=== PATIENT | male | born 1950 | race Caucasian/White ===

== ENCOUNTER 2020-07-05 11:45 | Outpatient (CLI) | payer OTHER, SELFPAY ==
--- NOTE | 2020-07-05 11:50 | MM_ITS ---
WS: [id number] DIAGNOSTIC BILATERAL DIGITAL MAMMOGRAM WITH CAD LEFT breast ultrasound, limited HISTORY: Male with asymmetric LEFT breast enlargement. Palpable mass centrally. COMPARISON: None available. TECHNIQUE: Bilateral craniocaudad, mediolateral oblique, and mediolateral views are submitted. Spot c ompression LEFT MLO. Computer aided detection utilized. Breast composition: The breasts are almost entirely fatty. There is a large encapsulated fatty mass i n the central to upper outer quadrant of the LEFT breast. This mass is probably an encapsulated lipo ma or fibroadenolipoma. Mass measures at least 8.2 x 7.6 cm. There are benign coarse calcifications w ithin the mass. No adenopathy. LEFT breast ultrasound, limited. Enlarged breast tissue corresponds to an encapsulated mass which is similar to the adjacent breast ti ssue. This is probably a lipoma or fibroadenolipoma which is benign. Mass measures at least 11 cm x 2 .4 cm. MM/[place] [id number] IMPRESSION: BI-RADS: 2-Benign FOLLOW UP: See Report There is a large fat-containing mass in the LEFT breast which is benign. This i s probably a lipoma or fibroadenolipoma. No suspicion for malignancy by mammogr aphy or ultrasound. Surgically this can be removed if clinically thought necess sylvain.
--- NOTE | 2020-07-05 12:45 | US_ITS ---
WS: [id number] DIAGNOSTIC BILATERAL DIGITAL MAMMOGRAM WITH CAD LEFT breast ultrasound, limited HISTORY: Male with asymmetric LEFT breast enlargement. Palpable mass centrally. COMPARISON: None available. TECHNIQUE: Bilateral craniocaudad, mediolateral oblique, and mediolateral views are submitted. Spot c ompression LEFT MLO. Computer aided detection utilized. Breast composition: The breasts are almost entirely fatty. There is a large encapsulated fatty mass i n the central to upper outer quadrant of the LEFT breast. This mass is probably an encapsulated lipo ma or fibroadenolipoma. Mass measures at least 8.2 x 7.6 cm. There are benign coarse calcifications w ithin the mass. No adenopathy. LEFT breast ultrasound, limited. Enlarged breast tissue corresponds to an encapsulated mass which is similar to the adjacent breast ti ssue. This is probably a lipoma or fibroadenolipoma which is benign. Mass measures at least 11 cm x 2 .4 cm. US/US breast LT limited* [id number] IMPRESSION: BI-RADS: 2-Benign FOLLOW UP: See Report There is a large fat-containing mass in the LEFT breast which is benign. This i s probably a lipoma or fibroadenolipoma. No suspicion for malignancy by mammogr aphy or ultrasound. Surgically this can be removed if clinically thought necess
== END 2020-07-05 11:46 | disposition home or self-care (01) ==
LOC: RADSHAW 11:47
PROVIDERS: PCP Emergency Medicine Emergency Medical Services; Visit Provider Dermatology
DX: N64.89 Other specified disorders of breast (principal); N63.20 Unspecified lump in the left breast, unspecified quadrant
CPT/HCPCS: 76642; 77066

== ENCOUNTER 2021-02-07 14:12 | Emergency (ER) | payer OTHER, MEDICARE, SELFPAY ==
[2021-02-07 14:29] VITALS: BP 145/87; PULSE 70; RESP 16; TEMP 36.4; O2SAT 95; BMI 31.3
--- NOTE | 2021-02-07 14:38 | XR_ITS ---
WS: [id number] Portable AP upright chest, 02/07/2021 Clinical Data: dyspnea/cough Comparison: None. Findings: No nodules, masses or effusions are seen. The heart is normal. The pulmonary vascularity is not increased. No pneumonia or pneumothorax is seen. The aortic arch and descending aorta show calci fication and tortuosity. XR/XR chest 1V portable [id number] Impression: Atherosclerosis.
--- NOTE | 2021-02-07 15:06 | ED_ITS ---
HPI - General Adult General: Chief complaint: General Medical Stated complaint: Coughing Blood Time Seen by Provider: 02/07/21 14:38 History of Present Illness: HPI narrative: 70-year-old male presents to the emergency room with complaint of minor hemoptysis for the last few days. He has not had any fever sweats chills shortness of breath. He has had a little bit of sinus congestion which initially had attributed to hemoptysis 2. He is not on any anticoagulants and has no history of any pulmonary emboli. He does not have any shortness of breath or chest pain. No known history of coronary artery disease. Patient is a former smoker quit several years ago. Onset (ago): day(s) Location: chest Severity: mild Relieving factors: none Exacerbating factors: none Associated symptoms: Reports cough; Deny chest pain, confusion, diaphoresis, decreased appetite, dyspnea, fevers/chills, headache(s), malaise, nausea, rash, palpitations, seizures, short of breath, syncope, vomiting or weakness Treatments prior to arrival: none Review of Systems Const: Denies: malaise or diaphoresis ENMT: Denies: throat pain, ear or mastoid pain, nasal discharge or nasal congestion Card: Denies: chest pain, palpitations or syncope Resp: Denies: dyspnea GI: Denies: nausea or vomiting : Denies: flank pain, dysuria, urinary frequency or urinary urgency Skin/Breast: Denies: rash Neuro: Denies: headache(s) or confusion PFS ED PFSH: Medical History History of nonmelanoma skin cancer Hypercholesteremia Family History Other CAD (coronary artery disease) Cancer Denies family history of Diabetes Stroke Social History Smoking and tobacco status: former smoker Alcohol intake: former History of recent travel: No Physical Exam Const: COMMON NORMALS: no acute distress GENERAL APPEARANCE: cooperative and comfortable ORIENTATION/CONSCIOUSNESS: Yes awake, Yes oriented to person, Yes oriented to place and Yes oriented to time HENMT: COMMON NORMALS: normocephalic, atraumatic and hearing grossly normal bilaterally HEAD & SCALP: normocephalic and atraumatic Neck/C-Spine: COMMON NORMALS: full ROM, no lymphadenopathy, supple and no JVD Lymph: LYMPHATIC: no lymphadenopathy noted and no lymphedema noted Resp: COMMON NORMALS: normal respiratory effort, No retractions, No use of accessory muscles and clear to auscultation bilaterally AUSCULTATION: clear to auscultation bilaterally Cardio: COMMON NORMALS: no JVD, regular rate, regular rhythm and No murmurs pr esent (Cardio) RATE: regular rate RHYTHM: regular rhythm GI: COMMON NORMALS: Soft to palpation and No hepatosplenomegaly present AUSCULTATION: Yes normoactive bowel sounds PALPATION: Yes Soft to palpation, No Tenderness to palpation present (GI), No Guarding due to palpation present (GI) and Yes No hepatosplenomegaly present Extremity: COMMON NORMALS: normal to inspection, capillary refill normal, no clubbing, cyanosis or edema, no calf tenderness and no pedal edema Neuro: SENSORIUM/ORIENTATION: Yes oriented to person, Yes oriented to place and Yes oriented to time Skin: COMMON NORMALS: no rashes or lesions noted GENERAL SKIN EXAM: no rashes or lesions noted Course Vital Signs: Vital signs: Vital Signs Temperature 97.6 F 02/07/21 14:29 Pulse Rate 67 02/07/21 15:11 Respiratory Rate 14 02/07/21 15:11 Blood Pressure 125/85 02/07/21 15:11 Pulse Oximetry 97 02/07/21 15:11 MDM - General Adult MDM Narrative: Medical decision making narrative: Labs and imaging reviewed we will discharge patient home start him on doxycycline we will set him up for an outpatient CT of the chest with IV contrast and follow-up with pulmonology. Lab Data: Labs: Lab Results 02/07/21 02/07/21 Range/Units 15:07 15:07 WBC 7.3 (4.0-10.0) 10^3/ uL RBC 5.17 (4.1-5.3) 10^6/u L Hgb 16.2 (11.7-16.6) g/dL Hct 48.3 (42.0-52.0) % MCV 93.4 (80-94) fl MCH 31.3 (28.0-34.0) pg MCHC 33.5 (30.0-36.0) g/dL RDW 12.2 (12.1-15.1) % Plt Count 252 (130-400) 10^3/c mm MPV 11.0 H (7.4-10.4) fL Neut % (Auto) 57.2 % Lymph % (Auto) 32.3 % Thayer % (Auto) 7.8 % Eos % (Auto) 2.1 % Baso % (Auto) 0.3 % Neut # (Auto) 4.19 (1.8-7.7) 10^3/u L Lymph # (Auto) 2.4 (0.8-4.8) 10^3/u L Thayer # (Auto) 0.6 (0.2-0.9) 10^3/u L Eos # (Auto) 0.2 (0.0-0.8) 10^3/u L Baso # (Auto) 0.0 (0.0-0.1) 10^3/u L Nucleated RBC % (a uto) 0 % Nucleated RBCs # 0.0 /100WBC Sodium Cancelled Potassium Cancelled Chloride Cancelled Carbon Dioxide Cancelled Anion Gap Cancelled BUN Cancelled Creatinine Cancelled GFR Calculation Cancelled Glucose Cancelled Calculated Osmolal ity Cancelled Calcium Cancelled Total Bilirubin Cancelled AST Cancelled ALT Cancelled Alkaline Phosphata se Cancelled Total Protein Cancelled Albumin Cancelled Globulin Cancelled Discharge Plan Discharge Patient Disposition: Home Clinical Impression: Cough with hemoptysis Condition: Stable Prescriptions: New doxycycline hyclate 100 mg capsule 100 mg PO BID 10 Days Qty: 20 RF: 0 No Action citalopram 20 mg tablet 20 mg PO DAILY RF: 0 simvastatin 40 mg tablet 40 mg PO DAILY RF: 0 mupirocin 2 % ointment 1 applic topical BID Qty: 22 RF: 1 Discharge Orders: Discharge ED (Routine); Ordered 02/07/21 Ordered By: David Panda Referrals: Eliel Corley DO [Primary Care Provider] - Patient Instructions: Opioid Safety Activity Restrictions/Additional Instructions: outside sales manager will call to set up a CT of the chest as well as a referral to pulmonology for the hemoptysis. If worsens recheck. Coding Level of Care Code ED Computer Network Specialist for Chg Fwd Exam Comprehensive
[2021-02-07 15:11] VITALS: BP 125/85; PULSE 67; RESP 14; O2SAT 97
[2021-02-07 15:16] LABS: Basophils % 0.3 %; Eosinophils # 0.2 10^3/uL (0.0-0.8); Eosinophils % 2.1 %; Hematocrit 48.3 % (42.0-52.0); Hemoglobin 16.2 g/dL (11.7-16.6); Lymphocytes # 2.4 10^3/uL (0.8-4.8); Lymphocytes % 32.3 %; Mean Corpuscular HGB Conc 33.5 g/dL (30.0-36.0); Mean Corpuscular Hemoglobin 31.3 pg (28.0-34.0); Mean Corpuscular Volume 93.4 fl (80-94); Monocytes # 0.6 10^3/uL (0.2-0.9); Monocytes % 7.8 %; Neutrophils # 4.19 10^3/uL (1.8-7.7); Neutrophils % 57.2 %; Nucleated Red Blood Cells % 0 %; Platelet Count 252 10^3/cmm (130-400); Red Blood Count 5.17 10^6/uL (4.1-5.3); Red Cell Distribution Width 12.2 % (12.1-15.1); White Blood Count 7.3 10^3/uL (4.0-10.0)
[2021-02-07 17:14] VITALS: BP 126/78; PULSE 67; RESP 16; O2SAT 97
[2021-02-07 17:22] LABS: Alanine Aminotransferase 15 U/L (0-41); Albumin Level 4.1 g/dL (3.5-5.2); Alkaline Phosphatase 50 IU/L (40-130); Anion Gap 11.5 (5-19); Aspartate Amino Transferase 13 U/L (0-40); Blood Urea Nitrogen 9 mg/dL (8-23); Calcium 8.8 mg/dL (8.5-10.5); Carbon Dioxide 30 mmol/L (22-29); Chloride 103 mmol/L (98-107); Globulin 2.6 g/dL (1.3-4.6); Glomerular Filtration Rate 96.1 mL/min (90-130); Glucose 97 mg/dL (65-115); Osmolality Calculated 289 mOsm/kg (285-295); Potassium 4.5 mmol/L (3.5-5.1); Sodium 140 mmol/L (136-145); Total Bilirubin 0.2 mg/dL (0.15-1.2); Total Protein 6.7 g/dL (6.6-8.7)
[2021-02-07 18:03] LABS: Partial Thromboplastin Time 27.9 SECONDS (23.9-36.7)
[2021-02-07 19:42] LABS: INR 0.97 (0.8-1.2)
--- NOTE | 2021-02-08 12:22 | DCPLANNER ---
Addendum entered by Yuliya Walters 06/19/21 18:08: Patient had a follow up appointment scheduled for 02.27.21 with [facility], pulmonology - patient did attend appointment. Original Note: senior tax manager had message to schedule a follow up appointment for patient with pulmonology and an outpatient CT with IV contrast. senior tax manager called [facility], spoke with Leda, gave clinic patients information. A follow up appointment was scheduled for Saturday, February 27, 2021 at 8:[address] Wilder. Patient has [facility] insurance, employment case manager emailed patients information to August, with [facility] in the community, so that the VA authorization could be started. senior tax manager had message to schedule an CT with IV contrast, employment case manager can not order this due to patient having VA insurance. [facility] will need to [facility] about [facility]. senior tax manager called patient and spoke with his , gave her the appointment information, and explained that patient would need to speak with [facility] the [facility] about [facility].
== END 2021-02-07 17:14 | disposition home or self-care (01) ==
PROVIDERS: Emergency Provider Family Medicine; PCP Emergency Medicine Emergency Medical Services
DX: R04.2 Hemoptysis (principal); Z87.891 Personal history of nicotine dependence
CPT/HCPCS: 71045; 80053; 85025; 85610; 85730; 99282

== ENCOUNTER 2021-02-22 08:57 | Outpatient (CLI) | payer OTHER, SELFPAY ==
--- NOTE | 2021-02-22 09:21 | CT_ITS ---
WS: [id number] CT CHEST WITH INTRAVENOUS CONTRAST HISTORY: HEMOPTYSIS TECHNIQUE: Contiguous 5 mm axial imaging performed on the thorax. Coronal and sagittal reformats are submitted. All CT scans at [facility] use at least one of these dose optimization techniques: automated exposure control; mA and/or kV adjustment per patient size (includes targeted exams where dose is matched to clinical indication); or iterative reconstruction. CONTRAST: Omnipaque 300; 95 mL IV. DLP: 986.08 mGycm COMPARISON: None available. Lungs and central airway: Lobulated soft tissue mass centered in the LEFT upper lobe measures 3.9 x 3 .6 cm and extends over a length of 2.5 cm. There is a more focal solid nodule centrally measuring 1.3 mm. This is tiny central cavitation. Pleura: Normal. No pleural effusion. Heart and pericardium: Normal size heart with no pericardial effusion. Mediastinum and nikita: No mediastinum or hilar adenopathy. Vessels: Very mild atherosclerosis aorta with no aneurysm. Normal size pulmonary artery. Chest wall and lower neck: Lipoma in the LEFT anterior chest wall measures 7.2 x 4.4 cm. Upper abdomen: Negative. Osseous structures: No destructive process. CT/CT chest w con* [id number] IMPRESSION: 1. LEFT upper lobe mass with lobulated borders and a central dense nidus. The lobulated borders may be hemorrhage or tumor. Cannot exclude neoplasm or vascul ar lesion with adjacent hemorrhage. 2. No additional nodules or adenopathy.
[2021-02-22] MEDS: iohexol 300 mg/mL 100 mL Btl IV (09:44)
== END 2021-02-22 08:58 | disposition home or self-care (01) ==
PROVIDERS: PCP Emergency Medicine Emergency Medical Services; Visit Provider Emergency Medicine Emergency Medical Services
DX: R04.2 Hemoptysis (principal)
CPT/HCPCS: 71260; Q9967

== ENCOUNTER 2021-02-27 10:38 | Outpatient (CLI) | payer OTHER, SELFPAY ==
[2021-03-01 15:36] LABS: Quantiferon Mitogen 9.51 IU/mL; Quantiferon Nil 0.01 IU/mL; Quantiferon Plus TB2 0.01 IU/mL; Quantiferon TB Gold NEGATIVE (NEGATIVE)
[2021-03-05 07:43] LABS: Histoplasma Antigen (Quant) NONE DETECTED; Histoplasma Antigen Interpreta NEGATIVE; Histoplasma Antigen Specimen URINE
== END 2021-02-27 10:39 | disposition home or self-care (01) ==
PROVIDERS: PCP Emergency Medicine Emergency Medical Services; Visit Provider Internal Medicine Pulmonary Disease
DX: J98.4 Other disorders of lung (principal)
CPT/HCPCS: 36415; 86480; 87015; 87070; 87116; 87205; 87206; 87385; 87801

== ENCOUNTER → 2021-03-13 09:50 | Outpatient (BNVA) | payer OTHER, SELFPAY | PROVIDERS: PCP Emergency Medicine Emergency Medical Services; Visit Provider Internal Medicine Pulmonary Disease | DX: J44.9 Chronic obstructive pulmonary disease, unspecified (principal); Z20.822 Contact with and (suspected) exposure to COVID-19 | CPT/HCPCS: 87635 ==

== ENCOUNTER 2021-03-19 05:49 | Day surgery (SDC) | payer OTHER, SELFPAY ==
[2021-03-15 14:42] VITALS: BMI 33.0
[2021-03-19] VITALS (8 sets, daily range): BP systolic 120–176; BP diastolic 61–91; PULSE 70–99; RESP 18; TEMP 36.4–36.9; O2SAT 94–99
--- NOTE | 2021-03-19 | CT_ITS ---
Guided Bronchoscopy Planning CT images; total exam DLP: 536.42 mGy-cm MTDD
[2021-03-19] MEDS: sodium chloride 0.9% 1,000 ML 30 ML IV (06:26)
--- NOTE | 2021-03-19 06:42 | P.HPUD_ITS ---
Surgery/Procedure H&P Update DATE OF PROCEDURE: March 19, 2021 DATE H&P PERFORMED: 02/27/21 PLANNED PROCEDURE: Operation Date: 03/19/21 07:00 Proposed Procedures willy Bardales [id number](Not Applicable) - Singh Lopez MD yoav Bess(Not Applicable) - Singh Lopez MD Mr. Navneet Tabares is a 70-year-old male with past medical history of COPD, hyperlipidemia, COVID-20 July 2020, sleep apnea on CPAP, ex-smoker 77 PPD quit 2010, history of nonmelanoma skin cancer, ED f/u, went to ED for hemoptysis on 02/07. states 1 week prior to ED visit coughed and noticed blood, assumed from sinus drainage or allergies. . During his ED visit on 02/07/2021 for hemoptysis patient was discharged with doxycycline and his CT chest was ordered as outpatient. CT chest on 02/22/2021 showed left upper lobe mass with lobulated borders in the central densities. Lobulated borders may be hemorrhage or tumor cannot exclude neoplasm or vascular lesion with adjacent hemorrhage. Overall lobulated soft tissue mass measured 3.9 x 3.6 cm and extends over a length of 2.5 cm. There is a more focal solid nodule centrally measuring 1.3 mm. This is tiny central cavitation. Subsequent PET CT on 03/09/2021 showed 1.8 cm left upper lobe hypermetabolic nodule with adjacent opacities consistent with malignancy and SUV of 15.1. Biopsy is recommended. Superior left hilar node has an SUV 6 and subaortic node has an SUV 3.9 these are consistent with local metastatic disease. Reports dry red flecks in sputum when asked early in the morning,, feeling tired all of the time. Denies fever, chills, night sweats, body aches, pain on inspi ration. Former cigarette and cigar smoker, vaping, quit. Started smoking at age 10, smoked approx 1.5ppd x 50 years. Quit cigarettes approx 2010 and started vaping. chewed tobacco previously as well, currently using Nicotine patches Physical Exam: Alert General: alert, NAD HEENT: conj clear, EOMI, PERRL, mmm, Neck: supple, no meningismus Heme: no cervical LAP Pulmonary: CTAB, no wheezing, rhonchi, crackles Cardiovascular: rrr, nl s1s2, no mrg Abdomen: soft, nt, nd, no r/g, bs+ Extremities: pulses +, no edema, no c/c : no CVA tenderness Skin: intact, no rash MSK: no back or neck pain Neurologic: grossly intact Assessment and plan: #Left upper lobe lobulated soft tissue mass 3.9 x 3.6 cm and extends over a length of 2.5 cm with focal solid nodule centrally measuring 1.3 mm with tiny central cavitation. -Differentials include squamous cell cancer/aspiration pneumonia/fungal pneumonia/TB -sputum culture Gram stain, AFB smear and culture, TB QuantiFERON, urine histoplasma antigen-negative -PET CT on 03/09/2021 showed 1.8 cm left upper lobe hypermetabolic nodule with adjacent opacities consistent with malignancy and SUV of 15.1. Biopsy is recommended. Superior left hilar node has an SUV 6 and subaortic node has an SUV 3.9 these are consistent with local metastatic disease. -Today patient is scheduled to get navigational bronchoscopy guided transbronchial biopsies and fine-needle aspiration cytology of left upper lobe mass, endobronchial guided FNA C of hilar lymph nodes.. Related Problem List Diagnoses (1) COPD (chronic obstructive pulmonary disease): Qualifiers: COPD type: unspecified COPD Qualified Code(s): J44.9 - Chronic obstructive pulmonary disease, unspecified (2) Pulmonary cavitary lesion: (3) Left pulmonary lesion:
--- NOTE | 2021-03-19 06:58 | ANES.PREANE2 ---
Pre-Anesthetic Assessment Pre-Anesthetic Assessment: Height/Weight: Height 1.7 m Weight 95.708 kg Temp Pulse Resp BP Pulse Ox 98.2 F 70 18 153/91 98 03/19/21 06:04 03/19/21 06:04 03/19/21 06:04 03/19/21 06:04 03/19/21 06:04 Preop Diagnosis: left upper lobe lesion Proposed Procedure: Operation Date: 03/19/21 07:00 Proposed Procedures p Veran [id number](Not Applicable) - Singh Lopez MD s Ebus(Not Applicable) - Singh Lopez MD Familial anesthetic complications: none Was Beta Jannet taken within 24 hours: N/A Was Clonidine taken within 24 hours: N/A Last intake: Intake Last Liquid Date 03/18/21 Last Liquid Time 22:00 Last Solid Date 03/18/21 Last Solid Time 22:00 Social: Social History: Alcohol (history of daily 7-8 years ago) and Tobacco (quit 10 year ago) Exam: Pre-Anes Outpt Exam: alert, oriented x 3, clear to auscultation bilaterally and regular rate & rhythm Airway: Submandibular: WNL Cervical ROM: WNL MP: 2 Dentition: Chipped and False Pulmonary: Pulmonary: Asthma, COPD, Cough and Sleep apnea (cpap) Comments: left upper lung mass CV/HEM: CV/HEM: None reported : : None reported Hepatic: Hepatic: None reported GI: GI: GERD (with some foods) Metabolic: Metabolic: Hyperlipidemia Musc/skel: Musc/skel: None reported Anesthetic Plan: ASA status: 3 Anesthesia: General Risk of > 500 ml blood loss (7ml/kg in children): No Meds/Allergies Current Medications: Current Medications Generic Name Dose Route Start Last Admin Trade Name Freq PRN Reason Stop Dose Admin Sodium Chloride 1,000 mls @ 30 ml s/hr 03/19/21 06:15 03/19/21 06:26 Sodium Chloride 0.9% IV 03/20/21 06:14 30 mls/hr .Q24H [place] Administration PFSH Anesthesia PFSH: Medical History History of nonmelanoma skin cancer Hypercholesteremia Family History Other CAD (coronary artery disease) Cancer Denies family history of Diabetes Stroke Social History Smoking and tobacco status: former smoker Quit status (tobacco): has quit using tobacco Year quit tobacco: 2010 Former quit date comment: 1.5ppd x 50 years Alcohol intake: former History of recent travel: No Data Anesthesia Cardiac Studies: No Data to Display
--- NOTE | 2021-03-19 08:08 | XRR_ITS ---
PROCEDURE INFORMATION: Exam: XR Chest Exam date and time: 03/19/2021 8:08 AM Age: 70 years old Clinical indication: Device placement; Other: Post veran/bronch; Prior surgery; Surgery date: Post-operative (0-2 days); Additional info: Post veran/bronch, gi lab procedure room 3 TECHNIQUE: Imaging protocol: XR of the chest. Views: 1 view. COMPARISON: CT chest con [id number] 03/19/2021 6:43 AM FINDINGS: Lungs: There is focal consolidation in the left mid lung field which was seen on the previous CT scan. The right lung is grossly clear. There is a tiny benign calcified granuloma in the left base. Pleural spaces: Unremarkable. No pleural effusion. No pneumothorax. Heart/Mediastinum: Unremarkable. No cardiomegaly. Bones/joints: Unremarkable. XR/XR chest 1V portable [id number] IMPRESSION: 1. Consolidation in the left mid lung zone as seen on recent CT scan. 2. No pneumothorax. Radiation Dose CTDIVOL = (mGy): DLP = (mGy-cm)
--- NOTE | 2021-03-19 08:16 | P.PCN_ITS ---
PACU note PACU note: VSS, Good respiratory effort, report to AIRPLANE RENTAL CLERK Post-Anesthesia Exam: awake
--- NOTE | 2021-03-19 08:16 | PM.PACU ---
PACU note PACU note: VSS, Good respiratory effort, report to CHRISTIAN SCIENCE NURSE Post-Anesthesia Exam: awake
--- NOTE | 2021-03-19 08:18 | PM.OP ---
Operative Report Date of procedure: Date of procedure: Date of procedure: March 19, 2021 Pre-op Diagnosis: Lung cancer Post-op diagnosis: same Brief History: Mr. Navneet Tabares is a 70-year-old male with past medical history of COPD, hyperlipidemia, COVID-20 July 2020, sleep apnea on CPAP, ex-smoker 77 PPD quit 2010, history of nonmelanoma skin cancer, ED f/u, went to ED for hemoptysis on 02/07. states 1 week prior to ED visit coughed and noticed blood, assumed from sinus drainage or allergies. . During his ED visit on 02/07/2021 for hemoptysis patient was discharged with doxycycline and his CT chest was ordered as outpatient. CT chest on 02/22/2021 showed left upper lobe mass with lobulated borders in the central densities. Lobulated borders may be hemorrhage or tumor cannot exclude neoplasm or vascular lesion with adjacent hemorrhage. Overall lobulated soft tissue mass measured 3.9 x 3.6 cm and extends over a length of 2.5 cm. There is a more focal solid nodule centrally measuring 1.3 mm. This is tiny central cavitation. Subsequent PET CT on 03/09/2021 showed 1.8 cm left upper lobe hypermetabolic nodule with adjacent opacities consistent with malignancy and SUV of 15.1. Biopsy is recommended. Superior left hilar node has an SUV 6 and subaortic node has an SUV 3.9 these are consistent with local metastatic disease. Scheduled today for Bronchoscopy with inspection of the airway, bronchoalveolar lavage, navigational bronchoscopy guided transbronchial biopsies of the right upper lobe opacity, fine-needle aspiration, endobronchial ultrasound-guided transbronchial survelliance and needle aspiration of lymph nodes and control of bleeding. Reports dry red flecks in sputum when asked early in the morning,, feeling tired all of the time. Denies fever, chills, night sweats, body aches, pain on inspiration. Former cigarette and cigar smoker, vaping, quit. Started smoking at age 10, smoked approx 1.5ppd x 50 years. Quit cigarettes approx 2010 and started vaping. chewed tobacco previously as well, currently using Nicotine patches Name of the procedure: Bronchoscopy with inspection of the airway, bronchoalveolar lavage, navigational bronchoscopy guided transbronchial biopsies of the right upper lobe opacity, fine-needle aspiration, endobronchial ultrasound-guided transbronchial survelliance and possible needle aspiration of lymph nodes and control of bleeding. Indication: Suspected lung cancer Anesthesia: General anesthesia. Local anesthesia: The tim, right and left mainstem bronchi were anesthetized with 1% lidocaine, 3 mL. Description of the procedure: The procedure was explained to the patient and the consent was obtained. The patient was brought to the OR. The patient underwent endotracheal intubation for general anesthesia. Following induction of general anesthesia, the bronchoscope was advanced through the ET tube. The lower trachea mucosa appeared to be normal but there is evidence of prior bleeding with some clots all long the left main bronchus and left upper lobe with some spillage into right bronchial tree. The tim was sharp. The tim, the right and left mainstem bronchi are anesthetized with 1% lidocaine. In a systematic manner bilateral bronchial tree was then examined. The bronchoscope was advanced into the left mainstem bronchus. There was blood with some clots mixed with mucus. The left upper lobe, lingula and left lower lobe bronchi were examined up to the third subsegmental level and no abnormalities were identified. There is no endobronchial lesion, active bleeding or mucous plug. The bronchoscope was then introduced into the right mainstem bronchus. The right upper lobe, right middle lobe and right lower lobe bronchi were examined up to the third subsegmental level and no abnormalities were identified. Using navigational bronchoscopy technique multiple transbronchial biopsies and fine-needle aspirations were obtained from the left upper lung opacity. Bronchoalveolar lavage was performed from the left upper lobe anterior segment. 30 mL of saline was instilled, fluid return was 20 mL. The fluid return has mucus flecks and blood tinged. The endobronchial ultrasound was introduced through the ET tube. Lymph node along left hilar area are too small and too close to blood vessels for Fine needle aspiration Samples: 1. The transbronchial biopsies are sent for histopathology. 2. The fine-needle aspiration was sent for histopathology, and cytology 3. The bronchoalveolar lavage was sent for Gram stain culture & Cytology 4. No Endobronchial ultrasound guided needle aspiration was performed Complications: There was no immediate complications. Pre-op Diagnosis: Lung mass Pre-op Diagnosis: left upper lobe lesion Associated Problem List Diagnoses (1) COPD (chronic obstructive pulmonary disease): Qualifiers: COPD type: unspecified COPD Qualified Code(s): J44.9 - Chronic obstructive pulmonary disease, unspecified (2) Ex-smoker: (3) Left pulmonary lesion: (4) Pulmonary cavitary lesion:
--- NOTE | 2021-03-19 14:16 | ANE.PACU2 ---
Inpatient post-anesthesia follow up: Airway intact: Yes Vital signs: Temperature 97.9 F Pulse Rate 78 Respiratory Rate 18 Blood Pressure 120/61 Pulse Oximetry 94 Oxygen Delivery Me thod Room Air Oxygen Flow Rate 2 Fraction of Inspir ed Oxygen Hydration adequate: Yes Nausea and vomiting: No Pain level: 2 Mental status: Baseline
== END 2021-03-19 09:34 | disposition home or self-care (01) ==
PROVIDERS: PCP Emergency Medicine Emergency Medical Services; Visit Provider Internal Medicine Pulmonary Disease
PROC: 0BJ08ZZ Inspection of Tracheobronchial Tree, Via Natural or Artificial Opening Endoscopic (ICD-10-PCS; CPT 31622; principal; 2021-03-19 07:00)
PROC: 0BJ08ZZ Inspection of Tracheobronchial Tree, Via Natural or Artificial Opening Endoscopic (ICD-10-PCS; CPT 31622; 2021-03-19 07:00)
DX: R91.8 Other nonspecific abnormal finding of lung field (principal); J44.9 Chronic obstructive pulmonary disease, unspecified; E78.5 Hyperlipidemia, unspecified; Z86.16 Personal history of COVID-19; G47.30 Sleep apnea, unspecified; Z87.891 Personal history of nicotine dependence; Z85.820 Personal history of malignant melanoma of skin; E78.00 Pure hypercholesterolemia, unspecified
CPT/HCPCS: 31622; 31627; 71045; 71250; 77011; 80500; 87070; 87205; 88112; 88305; 93312; 96360; 96361; J0330; J1100; J2405; J2704; J2710; J3010; J3490; J7030

== ENCOUNTER → 2021-03-22 00:01 | Outpatient (BNVA) | payer OTHER, SELFPAY | PROVIDERS: PCP Emergency Medicine Emergency Medical Services; Referring Provider Internal Medicine Pulmonary Disease; Visit Provider Internal Medicine Pulmonary Disease | DX: Z20.822 Contact with and (suspected) exposure to COVID-19 (principal) | CPT/HCPCS: 87635 ==

== ENCOUNTER → 2021-04-04 10:53 | Outpatient (BNVA) | payer OTHER, SELFPAY | PROVIDERS: PCP Emergency Medicine Emergency Medical Services; Referring Provider Internal Medicine Pulmonary Disease; Visit Provider Internal Medicine Pulmonary Disease | DX: J98.4 Other disorders of lung (principal); Z20.822 Contact with and (suspected) exposure to COVID-19 | CPT/HCPCS: 87635 ==

== ENCOUNTER 2021-04-09 06:51 | Day surgery (SDC) | payer OTHER, SELFPAY ==
--- NOTE | 2021-04-08 08:52 | ECG_ITS ---
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 Measurements Intervals [place] Rate: 72 P: 41 WI: 127 QRS: 45 QRSD: 98 T: 47 QT: 375 QTc: 411 Interpretive Statements SINUS RHYTHM No previous ECG available for comparison Electronically Signed On 04-08-2021 16:46:30 FINANCIAL INSTITUTION MANAGER by Raymond Marin M.D. [id number]
[2021-04-08 09:06] VITALS: BMI 33.6
--- NOTE | 2021-04-08 09:33 | ANES.PREANE2 ---
Pre-Anesthetic Assessment Pre-Anesthetic Assessment: Height/Weight: Height 1.7 m Weight 97.522 kg Preop Diagnosis: left upper lobe lesion Proposed Procedure: Operation Date: 04/09/21 08:25 Proposed Procedures p Ebus(Not Applicable) - Guanakito Che MD s Possible [place] Mediastinoscopy(Not Applicable) - Nikolai Noel MD Familial anesthetic complications: None Social: Social History: No alcohol and No tobacco Exam: Pre-Anes Outpt Exam: alert, oriented x 3, clear to auscultation bilaterally and regular rate & rhythm Airway: MP: 1 Dentition: False (top plate) Pulmonary: Pulmonary: COPD and Sleep apnea Comments: hematemeisis and spot on lung Metabolic: Metabolic: Hyperlipidemia Anesthetic Plan: ASA status: 3 Anesthesia: General Risk of > 500 ml blood loss (7ml/kg in children): No PFSH Anesthesia PFSH: Medical History History of nonmelanoma skin cancer Hypercholesteremia Family History Other CAD (coronary artery disease) Cancer Denies family history of Diabetes Stroke Social History Quit status (tobacco): has quit using tobacco Year quit tobacco: 2010 Former quit date comment: 1.5ppd x 50 years Alcohol intake: former History of recent travel: No Data Anesthesia Cardiac Studies: No Data to Display
[2021-04-08 10:35] LABS: Basophils % 0.6 %; Eosinophils # 0.2 10^3/uL (0.0-0.8); Eosinophils % 2.6 %; Hematocrit 42.3 % (42.0-52.0); Hemoglobin 14.1 g/dL (11.7-16.6); Lymphocytes # 2.1 10^3/uL (0.8-4.8); Lymphocytes % 29.7 %; Mean Corpuscular HGB Conc 33.3 g/dL (30.0-36.0); Mean Platelet Volume 11.3 fL (7.4-10.4); Monocytes # 0.7 10^3/uL (0.2-0.9); Neutrophils # 4.17 10^3/uL (1.8-7.7); Nucleated Red Blood Cells % 0 %; Platelet Count 268 10^3/cmm (130-400); Red Blood Count 4.55 10^6/uL (4.1-5.3); Red Cell Distribution Width 12.5 % (12.1-15.1); White Blood Count 7.2 10^3/uL (4.0-10.0)
[2021-04-09] VITALS (7 sets, daily range): BP systolic 111–163; BP diastolic 62–94; PULSE 70–91; RESP 16–19; TEMP 36.3–36.8; O2SAT 94–97
[2021-04-09] MEDS: sodium chloride 0.9% 1,000 ML 30 ML IV (07:12)
--- NOTE | 2021-04-09 07:17 | P.ANESUD_ITS ---
Pre-Anesthetic Update Pre-Anesthetic Assessment: Date of Surgery/Procedure: 04/09/21 Preop Laurie gnosis: left upper lobe lesion Proposed Procedure: Operation Date: 04/09/21 08:25 Proposed Procedures p Ebus(Not Applicable) - Guanakito Che MD s Possible [place] Mediastinoscopy(Not Applicable) - Nikolai Noel MD Any changes to Pre-Anesthetic Assessment?: No Last Intake: Intake Last Liquid Date 04/09/21 Last Liquid Time 22:30 Last Solid Date 04/08/21 Last Solid Time 22:30 Labs Last 48hrs: Laboratory Results - last 48 hr 04/08/21 09:28 WBC 7.2 RBC 4.55 Hgb 14.1 Hct 42.3 MCV 93.0 MCH 31.0 MCHC 33.3 RDW 12.5 Plt Count 268 MPV 11.3 H Neut % (Auto) 58.0 Lymph % (Auto) 29.7 [place] % (Auto) 9.0 Eos % (Auto) 2.6 Baso % (Auto) 0.6 Neut # (Auto) 4.17 Lymph # (Auto) 2.1 [place] # (Auto) 0.7 Eos # (Auto) 0.2 Baso # (Auto) 0.0 Nucleated RBC % (a uto) 0 Nucleated RBCs # 0.0 Vitals: Temperature 97.4 F L 04/09/21 07:01 Temperature Source Temporal Artery S can 04/09/21 07:01 Pulse Rate 86 04/09/21 07:01 Respiratory Rate 18 04/09/21 07:01 Blood Pressure 159/94 04/09/21 07:01 Blood Pressure Mariam n 115 04/09/21 07:01 Pulse Oximetry 97 04/09/21 07:01 Oxygen Delivery Me thod 04/09/21 07:01 Exam: Pre-Anes Outpt Exam: alert, oriented x 3, clear to auscultation bilaterally and regular rate & rhythm Cardiac Studies: No Data to Display
--- NOTE | 2021-04-09 07:25 | W.PM.OPSUD ---
Surgery/Procedure H&P Update DATE OF PROCEDURE: April 09, 2021 DATE H&P PERFORMED: 04/04/21 H&P UPDATE INFORMATION: I have reviewed H&P completed within last 30 days, I have examined patient prior to procedure and No changes to prior documentation PREOP DIAGNOSIS: left upper lobe lesion PLANNED PROCEDURE: Operation Date: 04/09/21 08:25 Proposed Procedures p Ebus(Not Applicable) - Guanakito Che MD s Possible [place] Mediastinoscopy(Not Applicable) - Nikolai Noel MD
--- NOTE | 2021-04-09 07:45 | W.PM.OPSUD ---
Surgery/Procedure H&P Update DATE OF PROCEDURE: April 09, 2021 DATE H&P PERFORMED: 04/03/21 H&P UPDATE INFORMATION: I have reviewed H&P completed within last 30 days, I have examined patient prior to procedure and No changes to prior documentation PREOP DIAGNOSIS: left upper lobe lesion PRIMARY INDICATION FOR PROCEDURE: Left upper lobe lung nodule suspicious for malignancy with PET positive left hilar and paratracheal lymph node. PLANNED PROCEDURE: Bronchoscopy with inspection of the airway, possible endobronchial biopsy, bronchoalveolar lavage, endobronchial sound guided transbronchial needle aspiration of lymph nodes and control of bleeding. Operation Date: 04/09/21 08:25 Proposed Procedures p Ebus(Not Applicable) - Guanakito Che MD s Possible [place] Mediastinoscopy(Not Applicable) - Nikolai Noel MD
[2021-04-09] MEDS: lidocaine 1% INJ 20 mL XX (08:44)
--- NOTE | 2021-04-09 10:29 | P.OP_ITS ---
Operative Report Date of procedure: April 09, 2021 Pre-op Diagnosis: left upper lobe lesion Post-op diagnosis: same Brief History: This is a 70-year-old gentleman with a left upper lobe cavitary PET positive lung nodule, mediastinal and hilar PET positive lymph nodes and hemoptysis coming in for bronchoscopic evaluation. Procedure: Name of the procedure: Bronchoscopy with inspection of the airway, possible bronchoalveolar lavage, endobronchial biopsies, endobronchial ultrasound-guided transbronchial needle aspiration of lymph nodes and control of bleeding. Indication: Suspected lung cancer. Anesthesia: General anesthesia. Local anesthesia: The tim in the right and left mainstem bronchi were anesthetized with 1% lidocaine, 3 mL. Description of the procedure: The procedure was explained to the patient and the consent was obtained. The patient was brought to the OR. The patient underwent endotracheal intubation for general anesthesia. Following induction of general anesthesia, the bronchoscope was advanced through the ET tube. Fresh and clotted blood was noted in the lower trachea over the tim and bilateral mainstem bronchi. The tim was sharp. The tim, the right and left mainstem bronchi are anesthetized with 1% lidocaine. In a systematic manner bilateral bronchial tree was then examined. The bronchoscope was advanced into the left mainstem bronc hus. The left upper lobe, lingula and left lower lobe bronchi were examined up to the third subsegmental level and no abnormalities were identified. No active bleeding was noted but blood was noted in all lung lobes. The bronchoscope was then introduced into the right mainstem bronchus. The right upper lobe, right middle lobe and right lower lobe bronchi were examined up to the third subsegmental level and no abnormalities were identified. Blood was noted throughout the airways. The endobronchial ultrasound was introduced through the ET tube. The PET 10 L lymph node was identified. The cortex and midline could not be differentiated. Fine-needle aspiration was performed from the lymph node. There was no lymphadenopathy in the 4R, 7, 4L lymph node stations. The 4L lymph node had distinct cortex and middle and measured less than 5 mm. Samples: 1. The transbronchial needle aspiration of the aforementioned lymph node groups were sent for histopathology. Complications: There was no immediate complications.
--- NOTE | 2021-04-09 11:38 | ANE.PACU2 ---
Inpatient post-anesthesia follow up: Airway intact: Yes Vital signs: Temperature 97.4 F Pulse Rate 70 Respiratory Rate 18 Blood Pressure 111/62 Pulse Oximetry 94 Oxygen Delivery Me thod Room Air Oxygen Flow Rate Fraction of Inspir ed Oxygen Hydration adequate: Yes Nausea and vomiting: No Pain level: 2 Mental status: Baseline
== END 2021-04-09 10:48 | disposition home or self-care (01) ==
PROVIDERS: Anesthesiology; PCP Emergency Medicine Emergency Medical Services; Visit Provider Internal Medicine Critical Care Medicine
PROC: BB4BZZZ Ultrasonography of Pleura (ICD-10-PCS; principal; 2021-04-09 08:15)
DX: J98.4 Other disorders of lung (principal); E78.00 Pure hypercholesterolemia, unspecified; Z87.891 Personal history of nicotine dependence; Z88.0 Allergy status to penicillin
CPT/HCPCS: 31652; 36415; 80500; 85025; 88305; 93005; J1100; J2405; J2704; J2710; J3010; J3490; J7030

== ENCOUNTER 2021-04-10 07:08 | Outpatient (CLI) | payer OTHER, SELFPAY ==
--- NOTE | 2021-04-10 13:45 | PFTS_ITS ---
Date of Study:04/10/21 Date of Dictation: MECHANICS: Forced vital capacity (FVC) is normal. Forced expiratory volume in one second (FEV1) is normal. FEV1/FVC is normal. FLOW VOLUME LOOP: Hesitation during the forced expiratory flow volume loop. LUNG VOLUMES: Total lung capacity (TLC) is normal. Residual volume (RV) is increased. DIFFUSING CAPACITY FOR CARBON MONOXIDE: Normal. INTERPRETATION: The prebronchodilator spirometry is normal. The postbronchodilator spirometry was not performed. Flow volume loop reveals hesitation during the forced expiratory flow volume loop. Lung volumes are consistent with air trapping. Gas exchange (DLCO) is normal. MTDD
== END 2021-04-10 07:09 | disposition home or self-care (01) ==
PROVIDERS: PCP Emergency Medicine Emergency Medical Services; Visit Provider Internal Medicine Pulmonary Disease
DX: J98.4 Other disorders of lung (principal)
CPT/HCPCS: 94010; 94618; 94726; 94729

== ENCOUNTER → 2021-04-11 09:49 | Outpatient (BNVA) | payer OTHER, SELFPAY | PROVIDERS: PCP Emergency Medicine Emergency Medical Services; Visit Provider Thoracic Surgery (Cardiothoracic Vascular Surgery) | DX: Z20.822 Contact with and (suspected) exposure to COVID-19 (principal); J98.4 Other disorders of lung | CPT/HCPCS: 87635 ==

== ENCOUNTER 2021-04-16 12:22 | Inpatient (IN) | payer OTHER, MEDICARE, SELFPAY ==
[2021-04-11 11:27] VITALS: BMI 33.6
[2021-04-11 12:26] LABS: Add Urine Microscopic? NO; Charge for UA Resulting for Rev
[2021-04-11 12:31] LABS: Basophils % 0.5 %; Eosinophils # 0.2 10^3/uL (0.0-0.8); Eosinophils % 1.8 %; Hematocrit 40.9 % (42.0-52.0); Hemoglobin 13.5 g/dL (11.7-16.6); Lymphocytes # 3.2 10^3/uL (0.8-4.8); Lymphocytes % 38.5 %; Mean Corpuscular Hemoglobin 30.9 pg (28.0-34.0); Mean Corpuscular Volume 93.6 fl (80-94); Mean Platelet Volume 11.5 fL (7.4-10.4); Monocytes # 0.6 10^3/uL (0.2-0.9); Monocytes % 6.9 %; Neutrophils # 4.27 10^3/uL (1.8-7.7); Neutrophils % 51.9 %; Nucleated Red Blood Cells % 0 %; Platelet Count 268 10^3/cmm (130-400); Red Blood Count 4.37 10^6/uL (4.1-5.3); Red Cell Distribution Width 12.9 % (12.1-15.1); White Blood Count 8.2 10^3/uL (4.0-10.0)
[2021-04-11 12:46] LABS: Bilirubin Urine Neg (Negative); Blood Urine Neg (Negative); Glucose Urine UA Norm (Normal); Ketones Urine Negative (Negative); Leukocyte Esterase Urine Negative (Negative); Nitrate Urine Negative (Negative); Protein Urine Neg (Negative); Specific Gravity, Urine 1.025 (1.005-1.030); Urine Appearance Clear (CLEAR); Urine Color Yellow (Yellow); Urobilinogen Urine Norm (Negative); pH Urine 5 (5-7)
[2021-04-11 12:52] LABS: Anion Gap 16.2 (5-19); Blood Urea Nitrogen 20 mg/dL (8-23); Calcium 8.9 mg/dL (8.5-10.5); Carbon Dioxide 25 mmol/L (22-29); Chloride 105 mmol/L (98-107); Glomerular Filtration Rate 96.1 mL/min (90-130); Glucose 95 mg/dL (65-115); Osmolality Calculated 296 mOsm/kg (285-295); Potassium 4.2 mmol/L (3.5-5.1); Sodium 142 mmol/L (136-145)
--- NOTE | 2021-04-11 15:14 | ANES.PREANE2 ---
Pre-Anesthetic Assessment Pre-Anesthetic Assessment: Height/Weight: Height 1.7 m Weight 97.522 kg Preop Diagnosis: left upper lobe lesion Proposed Procedure: Operation Date: 04/16/21 07:00 Proposed Procedures p Lobectomy(Not Applicable) - Nikolai Noel MD Was Beta Jannet taken within 24 hours: N/A Was Clonidine taken within 24 hours: N/A Social: Social History: No tobacco Comment: Former smoker. Exam: Pre-Anes Outpt Exam: alert, oriented x 3, clear to auscultation bilaterally and regular rate & rhythm Airway: Submandibular: WNL Cervical ROM: WNL MP: 3 Dentition: False History/ROS: No significant complaints Pulmonary: Pulmonary: COPD and Sleep apnea Metabolic: Metabolic: Hyperlipidemia Anesthetic Plan: ASA status: 3 Anesthesia: Anesthesia Evaluation, General and Regional (specify below) Other: 2 PIVs, arterial line, epidural for post-op pain discussed. Risk of > 500 ml blood loss (7ml/kg in children): Yes, adequate IV access and fluids planned PFSH Anesthesia PFSH: Medical History History of nonmelanoma skin cancer Hypercholesteremia Family History Other CAD (coronary artery disease) Cancer Denies family history of Diabetes Stroke Social History Quit status (tobacco): has quit using tobacco Year quit tobacco: 2010 Former quit date comment: 1.5ppd x 50 years Alcohol intake: former History of recent travel: No Data Anesthesia CBC & Chem 7: 04/11/21 12:00 04/11/21 12:00 Other Labs: Laboratory Results - last 48 hr 04/11/21 04/11/21 04/11/21 12:00 12:00 12:00 WBC 8.2 RBC 4.37 Hgb 13.5 Hct 40.9 L MCV 93.6 MCH 30.9 MCHC 33.0 RDW 12.9 Plt Count 268 MPV 11.5 H Neut % (Auto) 51.9 Lymph % (Auto) 38.5 [place] % (Auto) 6.9 Eos % (Auto) 1.8 Baso % (Auto) 0.5 Neut # (Auto) 4.27 Lymph # (Auto) 3.2 [place] # (Auto) 0.6 Eos # (Auto) 0.2 Baso # (Auto) 0.0 Nucleated RBC % (auto) 0 Nucleated RBCs # 0.0 PT 12.50 INR 0.90 Sodium Potassium Chloride Carbon Dioxide Anion Gap BUN Creatinine GFR Calculation Glucose Calculated Osmolality Calcium Urine Color Urine Appearance Urine pH Ur Specific [place] Urine Protein Urine Glucose (UA) Urine Ketones Urine Blood Urine Nitrate Urine Bilirubin Urine Urobilinogen Ur Leukocyte Esterase Blood Type A Negative Rho(D) Type Negative Antibody Screen Negative Crossmatch See Detail 04/11/21 04/11/21 12:00 12:00 WBC RBC Hgb Hct MCV MCH MCHC RDW Plt Count MPV Neut % (Auto) Lymph % (Auto) [place] % (Auto) Eos % (Auto) Baso % (Auto) Neut # (Auto) Lymph # (Auto) [place] # (Auto) Eos # (Auto) Baso # (Auto) Nucleated RBC % (auto) Nucleated RBCs # PT INR Sodium 142 Potassium 4.2 Chloride 105 Carbon Dioxide 25 Anion Gap 16.2 BUN 20 Creatinine 0.8 GFR Calculation 96.1 Glucose 95 Calculated Osmolality 296 H Calcium 8.9 Urine Color Yellow Urine Appearance Clear Urine pH 5 Ur Specific [place] 1.025 Urine Protein Neg Urine Glucose (UA) Norm Urine Ketones Negative Urine Blood Neg Urine Nitrate Negative Urine Bilirubin Neg Urine Urobilinogen Norm Ur Leukocyte Esterase Negative Blood Type Rho(D) Type Antibody Screen Crossmatch Cardiac Studies: No Data to Display
[2021-04-16] VITALS (116 sets, daily range): BP systolic 93–237; BP diastolic 53–199; PULSE 62–99; RESP 9–42; TEMP 36.8–37.2; O2SAT 88–100
--- NOTE | 2021-04-16 06:36 | W.PM.OPSUD ---
Surgery/Procedure H&P Update DATE OF PROCEDURE: April 16, 2021 DATE H&P PERFORMED: 04/04/21 H&P UPDATE INFORMATION: I have reviewed H&P completed within last 30 days, I have examined patient prior to procedure and No changes to prior documentation PREOP DIAGNOSIS: Left upper lobectomy PLANNED PROCEDURE: Operation Date: 04/16/21 07:00 Proposed Procedures p Lobectomy(Not Applicable) - Nikolai Noel MD
[2021-04-16] MEDS: sodium chloride 0.9% 1,000 ML 30 ML IV (06:55)
[2021-04-16] MEDS: vancomycin 1,500 MG/300 ML PIGGYBACK 200 MG IV (07:00)
--- NOTE | 2021-04-16 07:40 | P.ANESUD_ITS ---
Pre-Anesthetic Update Pre-Anesthetic Assessment: Date of Surgery/Procedure: 04/16/21 Preop Laurie gnosis: Left upper lobectomy Proposed Procedure: Operation Date: 04/16/21 07:00 Proposed Procedures p Lobectomy(Not Applicable) - Nikolai Noel MD Any changes to Pre-Anesthetic Assessment?: No Last Intake: Intake Last Liquid Date 04/15/21 Last Liquid Time 22:00 Last Solid Date 04/15/21 Last Solid Time 22:00 Labs Last 48hrs: Laboratory Results - last 48 hr 04/11/21 12:00 Blood Type A Negative Rho(D) Type Negative Antibody Screen Negative Crossmatch See Detail Vitals: Temperature 98.2 F 04/16/21 06:09 Temperature Source Temporal Artery S can 04/16/21 06:09 Pulse Rate 70 04/16/21 06:09 Respiratory Rate 18 04/16/21 06:09 Blood Pressure 114/82 04/16/21 06:09 Blood Pressure Mariam n 92 04/16/21 06:09 Pulse Oximetry 97 04/16/21 06:09 Oxygen Delivery Me thod 04/16/21 06:14 Exam: Pre-Anes Outpt Exam: alert, oriented x 3, clear to auscultation bilaterally and regular rate & rhythm Cardiac Studies: No Data to Display
--- NOTE | 2021-04-16 07:40 | ANES.PROC ---
Anesthesia Procedures Procedure/Date: 04/16/21 Epidural: Time Out Performed: Yes Consents Signed: Procedure Consent Consent: requested by attending/covering physician, from patient, risks and benefits reviewed and patient agrees to proceed Thoracic Level: T9-T10 (right paramedian) Epidural position: sitting Epidural procedure: sterile prep of area, 1% lidocaine to numb the area, 18 g needle, neg for paresthesia, test dose given, 1.5% xylocaine 1:200k epi, no systemic response, sterile dressing applied and 0.2% Ropiavacaine @ mls/hr (6) Additional Comments: ABY at 8cm, cath at 13cm
[2021-04-16] MEDS: vancomycin 1,000 MG SDV 2000 MG IRRIGATION (08:13)
--- NOTE | 2021-04-16 10:45 | XR_ITS ---
WS: [id number] Exam: XR chest 1V portable [id number] Date/Time of Exam: 04/16/2021 1:59 PM Reason For Exam: chest tube placement Comparison 03/19/2021. Tiny left apical pneumothorax is noted. Left chest tube ends in the upper left pleural cavity. Trace amount of subcutaneous emphysema along the left rib cage. The right lung is clear and fully inflated. Unremarkable cardiomediastinal silhouette. A second opaque tube is seen along the left superior medi astinum and could represent a second chest tube. Surgical skin clips along the left rib cage. Additio nal wire superimposes the right chest. XR/XR chest 1V portable [id number] IMPRESSION: 1. Tiny left upper lobe pneumothorax estimated at less than 5%. Minimal subcuta neous emphysema along the left rib cage. 2. Chest tube in place ending in the upper left pleural cavity. There may be a second chest tube along the left mediastinum extending somewhat more superior. 3. Additional nonacute findings as noted above
--- NOTE | 2021-04-16 11:55 | PM.OP ---
Operative Report Date of procedure: April 16, 2021 Pre-op Diagnosis: Left upper lobectomy Post-op diagnosis: same Procedure Done: Left posterior lateral thoracotomy with left upper lobectomy Therapeutic bronchoscopy Specimens removed/disposition: Left upper lobe; Lymph nodes Surgeon: Nikolai Noel Anesthesia: General Complications: None Condition: stable Disposition: ICU Brief History: Patient is a 70-year-old gentleman with a greater than 3-month history of almost daily hemoptysis. He is found to have a cavitary lesion in his left upper lobe. Previous attempts at diagnostics have included navigational bronchoscopy and endobronchial ultrasound with biopsy. Unfortunately, these were nondiagnostic. Because of continued hemoptysis, it is felt that surgical extirpation is the next logical step. Rationale for lobectomy was carefully discussed with Mr. Tabares and his . Appropriate consents have been reviewed and signed. Procedure: Thoracic epidural catheter was placed prior to entering the surgical suite. Mr. Tabares underwent general endotracheal anesthesia with double-lumen endotracheal tube placed. Appropriate invasive lines were placed. He was placed in the right lateral decubitus position over axillary roll and protective padding. His entire left chest was sterilely prepped and draped. A muscle-sparing limited left thoracotomy incision was made with cautery used to control bleeding. Latissimus muscle was divided. The anterior serratus muscle was retracted but not divided. The fifth intercostal space was entered. Moist laparotomy pads and the Finochietto retractor were placed. The chest was carefully opened. The left upper lobe mass could be easily palpated. The pleura was opened circumferentially around the hilum. Inferior pulmonary ligament was taken down. Hilar dissection was initiated anteriorly and superiorly. The superior pulmonary vein was controlled and stapled. It was then divided. Dissection was then continued cranially isolating branches of the pulmonary artery to the left upper lobe. These were also taken down ligated and divided. The fissure between the left upper and lower lobes was incomplete. This was completed utilizing a pulmonary stapler with seam guard. Posteriorly, the bronchus to the left upper lobe was dissected free. Next, left upper lobe bronchus was stapled and sharply divided with scalpel. Left upper lobe specimens was removed. Lymph node sampling was then performed in the hilum. The entire chest was irrigated with large amounts of antibiotic solution. Left lower lobe was reinflated. No substantial air leaks were identified. 28 Swedish drain was placed over the diaphragm and out to the apex. A second 20 H drain was also placed. These were connected to Pleur-evac suction. Retractor and sponges were removed. Sponge and needle count was correct. Chest wall was reapproximated with interrupted #1 Vicryl suture. The fascia was closed with running 0 Vicryl suture. The subcutaneous layer was closed with 2-0 Vicryl suture. Skin was reapproximated surgical leonides. Sterile dressing was applied. Patient was returned to the supine position and awakened from anesthesia. He was extubated. His was counseled. Chest x-ray is pending. Following return to the supine position and prior to transfer to the ICU, double-lumen endotracheal tube was replaced with a single-lumen tube and therapeutic bronchoscopy was performed to remove any blood from the tracheobronchial tree. This was done with active aspiration. There was no active bleeding noted. Mucosa appeared to be unremarkable. There were no endobronchial lesions. There was no extrinsic compression or evidence for submucosal infiltration. The bronchial stump to the left upper lobe appeared to be well sealed. He tolerated both procedures well and then was transferred to the ICU.
[2021-04-16] MEDS: ketorolac 30 mg/mL INJ IVP (12:47)
[2021-04-16] MEDS: ondansetron 2 mg/ML SDV 2 mL 4 MG IVP (12:47)
[2021-04-16] MEDS: morphine 4 mg/mL SDV 1 mL 2 MG IVP ×3 (12:47→20:05)
[2021-04-16] MEDS: lactated ringers 1,000 ML 75 ML IV (12:49)
[2021-04-16] MEDS: HYDROmorphone 1 mg/mL INJ 1 mL 0.5 MG IVP (12:52)
--- NOTE | 2021-04-16 14:45 | ANE.PACU2 ---
Inpatient post-anesthesia follow up: Airway intact: Yes Vital signs: Temperature 98.9 F Pulse Rate 90 Respiratory Rate 19 Blood Pressure 123/76 Pulse Oximetry 99 Oxygen Delivery Me thod Simple Mask Oxygen Flow Rate 5 Fraction of Inspir ed Oxygen Hydration adequate: Yes Nausea and vomiting: No Pain level: 3 Mental status: Baseline
--- NOTE | 2021-04-16 16:29 | PC.NURSE ---
recd. alert, joking.
[2021-04-16] MEDS: oxyCODONE-APAP 5-325 mg Tablet 1 TAB PO (16:49)
[2021-04-16] MEDS: guaiFENesin 100 mg/5 mL UDC 10 mL 200 MG PO (19:55)
[2021-04-17] VITALS (148 sets, daily range): BP systolic 101–156; BP diastolic 55–96; PULSE 76–102; RESP 10–30; TEMP 36.6–37.1; O2SAT 86–97
[2021-04-17] MEDS: vancomycin 1,500 MG/300 ML PIGGYBACK 200 MG IV ×2 (00:54→19:51)
[2021-04-17] MEDS: morphine 4 mg/mL SDV 1 mL 2 MG IVP ×4 (01:10→18:25)
[2021-04-17] MEDS: lactated ringers 1,000 ML 75 ML IV (03:03)
[2021-04-17] MEDS: TRAMadol 50 mg Tablet PO (03:15)
[2021-04-17 04:31] LABS: Basophils % 0.2 %; Eosinophils % 0.2 %; Hematocrit 35.7 % (42.0-52.0); Hemoglobin 11.2 g/dL (11.7-16.6); Lymphocytes # 1.9 10^3/uL (0.8-4.8); Lymphocytes % 15.7 %; Mean Corpuscular HGB Conc 31.4 g/dL (30.0-36.0); Mean Corpuscular Hemoglobin 30.8 pg (28.0-34.0); Mean Corpuscular Volume 98.1 fl (80-94); Mean Platelet Volume 11.4 fL (7.4-10.4); Monocytes # 1.4 10^3/uL (0.2-0.9); Neutrophils # 8.97 10^3/uL (1.8-7.7); Neutrophils % 72.5 %; Nucleated Red Blood Cells % 0 %; Platelet Count 229 10^3/cmm (130-400); Red Blood Count 3.64 10^6/uL (4.1-5.3); White Blood Count 12.4 10^3/uL (4.0-10.0)
--- NOTE | 2021-04-17 04:49 | PC.NURSE ---
Pt was in a lot of pain throughout the shift. Educated pt on the indication of a SALES DEPARTMENT SUPERVISOR pump and how it works. When Pt used the SALES DEPARTMENT SUPERVISOR appropriately in addition to being given PRN morphine and Toradol, pain was controlled. Pt repositioned as needed. Chest tubes patent and draining serosanguineous fluid, Chest tube 1: 300 output; Chest tube 2: 60 output.
[2021-04-17 04:59] LABS: Anion Gap 17.9 (5-19); Blood Urea Nitrogen 14 mg/dL (8-23); Calcium 7.3 mg/dL (8.5-10.5); Carbon Dioxide 22 mmol/L (22-29); Chloride 104 mmol/L (98-107); Glomerular Filtration Rate 83.9 mL/min (90-130); Glucose 107 mg/dL (65-115); Osmolality Calculated 291 mOsm/kg (285-295); Potassium 3.9 mmol/L (3.5-5.1); Sodium 140 mmol/L (136-145)
--- NOTE | 2021-04-17 06:00 | XR_ITS ---
WS: [id number] Exam: XR chest 1V portable [id number] Date/Time of Exam: 04/17/2021 5:27 AM Reason For Exam: POD #1 s/p Left upper lobectomy Comparison 04/16/2021. The left lung appears to be fully expanded. There are 2 left-sided chest tubes in place unchanged in location. No focal infiltrate or pleural effusion. Cardiomediastinal silhouette is unremarkable for t echnique. Small amount of subcutaneous emphysema along the base of the neck on the left and along the left rib cage. Surgical skin clips noted along the left chest. The right lung remains fully inflated and clear. Additional wires and leads superimpose the chest. XR/XR chest 1V portable [id number] IMPRESSION: 1. Status post left upper lobe lobectomy. No pneumothorax noted on today's stud y. 2. There are 2 left-sided thoracostomy tubes in place unchanged in location. Sm all amount of subcutaneous emphysema along the left rib cage and base of the ne ck on the left.
[2021-04-17] MEDS: FUROsemide 10 mg/mL SDV 2mL 20 MG IVP (06:27)
--- NOTE | 2021-04-17 06:45 | P.PN_ITS ---
Subjective Subjective: Interval history: Postop day #1 status post left upper lobectomy. Looks quite good. Moderate chest wall discomfort. Chest x-ray is stable. Intake and output is up 1800 cc. Very minimal intermittent air leak. Chest tube output 430 cc, mostly serous. H&H is stable. Vitals/I&O/Wt Last Vital Signs Temp 98.3 F 04/17/21 06:00 Pulse 84 04/17/21 06:00 Resp 18 04/17/21 06:14 BP 139/63 04/17/21 06:00 Pulse Ox 93 04/17/21 06:14 04/16/21 04/16/21 04/17/21 14:59 22:59 06:59 Intake Total 489.5 / 489.5 720 / 1209.5 2600 / 3809.5 Output Total 475 / 475 1530 / 2005 Balance 489.5 / 489.5 245 / 734.5 1070 / 1804.5 Weight last 48 hrs Weight 216 lb Physical Exam Chest: COMMONS NORMALS: normal inspection of the chest and normal palpation of entire chest wall OTHER: Surgical dressings and support lines remain in good position. Resp: COMMON NORMALS: normal respiratory effort and clear to auscultation bilaterally AUSCULTATION: clear to auscultation bilaterally OTHER: Pulling 1200 cc on incentive spirometry. Cardio: COMMON NORMALS: regular rate, regular rhythm and S1 normal heart sound present RATE: regular rate RHYTHM: regular rhythm HEART SOUNDS: S1 normal heart sound present Extremity: OTHER: Minimal peripheral edema. Urinary Catheter Management^: Pantoja Latex: Cath Placed During This Visit: yes Reason for Continuing Indwelling Catheter: Accurate Measurement of Urinary Output in Critically Ill Patients Urinary Catheter Date of Insertion: 04/16/21 Urinary Catheter Time of Insertion: 07:40 Data : 04/17/21 03:40 04/17/21 03:40 A&P Assessment and plan (1) Status post lobectomy of lung: POD #1 status post left upper lobectomy. Pathology pending. Plan: Saline lock/DC IV fluids. Lasix 20 mg IV now CBC, BMP, chest x-ray in a.m. We will consider potential transfer to [facility] later today Status: Acute Attestations Medical Necessity Statement*: POD #1 status post left upper lobectomy Time Spent in Patient Care: less than 15 minutes Coding Level of Care Code Acute Sole Leveler Machine for Chg Fwd Diagnoses Status post lobectomy of lung Z90.2
[2021-04-17] MEDS: ketorolac 30 mg/mL INJ IVP (08:28)
--- NOTE | 2021-04-17 09:03 | PC.CHAP ---
Pastoral Care Encounter/Spiritual Assessment Type of Contact [] Declined quarrying specialist visit [] Patient/Family/Request visit [] Outpatient visit [] Follow-up visit [] Physician referral [] Code/Alert [x] Routine visit [] Staff referral [] Actively dying [] Patient sleeping [] Family support [] [] Out of room [] Palliative care [] [x] Receiving care in room [] Pre-surgical visit [] Trauma [] Long length of stay [x] ICU visit [] Other: Relational/Emotional Strength [] Patient feels connected with others/family/visitors/staff [] Distress [] Loneliness/isolation [] Abandonment Spirituality of Patient [x] Person of Belinda [] Attends Congregational of their Belinda [] Believes in Prayer [] Reads Bible or Moravian materials [] There are Spiritual issues to be addressed On Site Nurse Interventions [x] Prayer [x] Active listening [x] Non-anxious presence [x] Spiritual/emotional support [] Crisis/trauma care [] Spiritual counseling [] Bereavement support [] Provided bereavement packet [] Provided Bible/devotional materials [] Provided toy/stuffed animal, coloring book to patient or family member [] Provided Communion [] Anointing/Iraan [] Salvation [x] Completed spiritual assessment [] Other: Impact on Illness or Injury [] Angry [] Fearful [] Anxious [] Often cries [] Exhaustion [] Unable to work [] Unable to attend voodoo [] Unable to walk/stand [] Unable to read [] Unable to drive [] Unable to eat/drink [] Unable to sleep [] Unable to be with family [] Patient intubated [] Other: Summary patient resting well after surgery.. looking forward to going home in a couple days.. having breakfast Time spent with patient 10 min
--- NOTE | 2021-04-17 09:16 | PC.NURSE ---
pt. refused am meds. stated he wanted o take his own. had simvastatin and celexaa. pt. states lipitor makes his legs hurt. refused protonix.
--- NOTE | 2021-04-17 09:20 | PC.NURSE ---
0700 recd. resting quietly.
--- NOTE | 2021-04-17 09:21 | PC.NURSE ---
o800 breakfst in. jacobo anderson.
--- NOTE | 2021-04-17 10:41 | PC.NURSE ---
assisted up to chair. tol. altamirano
[2021-04-17] MEDS: oxyCODONE-APAP 5-325 mg Tablet 1 TAB PO ×2 (14:00→18:40)
--- NOTE | 2021-04-17 14:28 | PM.MISC ---
Miscellaneous Note Purpose of Documentation: Doing well on afternoon rounds. Minimal air leak. Decreased chest tube output. Vital signs are stable. Good use of incentive parameter. We will transfer to the medical/surgical flores. I will continue chest tube to suction tonight and consider placing the Pleur-evac tomorrow. Once on waterseal, patient may then ambulate.
--- NOTE | 2021-04-17 14:45 | ANE.PACU2 ---
Inpatient post-anesthesia follow up: Airway intact: Yes Vital signs: Temperature 98.8 F Pulse Rate 78 Respiratory Rate 20 Blood Pressure 114/57 Pulse Oximetry 92 Oxygen Delivery Me thod Nasal Cannula Oxygen Flow Rate 3 Fraction of Inspir ed Oxygen Hydration adequate: Yes Nausea and vomiting: No Pain level: 2 Mental status: Baseline Additional Comments: POD#1, appears to have good pain control, no change
--- NOTE | 2021-04-17 18:21 | XRR_ITS ---
PROCEDURE INFORMATION: Exam: XR Chest Exam date and time: 04/17/2021 6:21 PM Age: 70 years old Clinical indication: Device placement; Chest tube; Prior surgery; Additional info: Chest tube position. TECHNIQUE: Imaging protocol: XR of the chest. Views: 1 view. COMPARISON: CR XR chest 1V portable [id number] 04/17/2021 5:39 AM FINDINGS: Tubes, catheters and devices: Two left pleural chest tubes in place. Lungs: The lungs are clear. Pleural spaces: Trace left pneumothorax with pleural separation of 3 mm. Heart/Mediastinum: Unremarkable. No cardiomegaly. Diaphragm: Mild elevation of the left diaphragm. Bones/joints: Left thoracotomy changes. Soft tissues: Left chest wall skin leonides. Small amount of soft tissue gas in the left chest wall and neck. XR/XR chest 1V portable [id number] IMPRESSION: 1. Left thoracotomy changes with trace left pneumothorax and chest tubes in place. Radiation Dose CTDIVOL = (mGy): DLP = (mGy-cm)
[2021-04-17] MEDS: lidocaine 1% INJ 20 mL SUBCUT (21:30)
[2021-04-17] MEDS: midazolam 1 mg/mL INJ 2 mL IVP (21:30)
[2021-04-17] MEDS: meperidine 50 mg/mL INJ IVP (21:45)
--- NOTE | 2021-04-17 21:52 | XRR_ITS ---
PROCEDURE INFORMATION: Exam: XR Chest Exam date and time: 04/17/2021 9:52 PM Age: 70 years old Clinical indication: Device placement; Chest tube; Additional info: Thoravent placement TECHNIQUE: Imaging protocol: XR of the chest. Views: 1 view. COMPARISON: CR (CHEST, ) 04/17/2021 6:28 PM FINDINGS: Tubes, catheters and devices: Single left pleural chest tube. Catheter or vent device projects over the upper left chest wall. Lungs: Mild atelectasis in the lung bases. Surgical clips in the left hilum. Pleural spaces: No visible pneumothorax. Heart/Mediastinum: Pneumomediastinum has developed. Bones/joints: Unremarkable. Soft tissues: Extensive soft tissue gas has increased in the bilateral chest wall and neck. XR/XR chest 1V portable [id number] IMPRESSION: 1. No visible pneumothorax. 2. Pneumomediastinum has developed. 3. Significantly increased soft tissue gas in the chest wall and neck. Radiation Dose CTDIVOL = (mGy): DLP = (mGy-cm)
--- NOTE | 2021-04-17 22:24 | P.PN_ITS ---
Subjective Subjective: Interval history: I was notified by ICU nursing staff around 6 PM Mr. Lucia may have dislodged his chest tubes when getting up from the chair to go back to the bed without assistance. Nurses noted air leak was present. I inquired as to whether the chest tubes have been dislodged and asked him to describe this to me. I did not feel there was substantial dislodgment noted. There was a brief period of desaturation to 88% which he kathy back to 94% with nasal cannula. Otherwise, vital signs were stable. I asked for chest x-ray which was performed. I reviewed the chest x-ray remotely and noted that indeed at least one chest tube had been substantially dislodged though the other 2 appear to be about the same. There was no obvious pneumothorax or subtendinous emphysema. After shift change I was notified later in the evening that there was subcutaneous emphysema over the left shoulder. At that time I asked nursing service to make preparations for thoracic vent placement. At the time I arrived shortly thereafter, there was massive subcutaneous emphysema along the left chest wall into the neck and into the face across the periorbital region. At that time I rapidly placed a left anterior thoracic vent 13 Norwegian. Chest x-ray revealed substantial subtendinous emphysema. No substantial pneumothorax. I do note that the anterior chest tube originally placed, surgery was well out past its limits with the fluids being clearly visible. I remove this chest tube acutely, though the other chest tube more partially appear to be in adequate position. This was left in place. Both Pleur-evacs are now on suction. We will observe closely with serial x-rays. I will remain in-house in my office through the night for frequent assessments. Vitals/I&O/Wt Last Vital Signs Temp 98 F 04/17/21 15:05 Pulse 79 04/17/21 17:45 Resp 18 04/17/21 21:45 BP 120/64 04/17/21 17:00 Pulse Ox 93 04/17/21 21:45 04/17/21 04/17/21 04/17/21 06:59 14:59 22:59 Intake Total 2600 / 3809.5 1060 / 1060 480 / 1540 Output Total 1530 / 2005 1500 / 1500 900 / 2400 Balance 1070 / 1804.5 -440 / -440 -420 / -860 Weight last 48 hrs Weight 216 lb Physical Exam Chest: OTHER: Substantial subcutaneous emphysema across the left chest wall le ft shoulder base of the neck face and periorbital regions. Urinary Catheter Management^: Pantoja Latex: Cath Placed During This Visit: yes Reason for Continuing Indwelling Catheter: Accurate Measurement of Urinary Output in Critically Ill Patients Urinary Catheter Date of Insertion: 04/16/21 Urinary Catheter Time of Insertion: 07:40 Data : 04/17/21 03:40 04/17/21 03:40 A&P Assessment and plan (1) Status post lobectomy of lun. Status post left upper lobectomy. Dislodgment of chest tubes during patient self ambulation while in the ICU. Acute 13 Norwegian left thoracic vent placed at bedside. Plan: Close serial observations throughout the night. I will remain in house. If I think that the situation is worsening, I will formally place a 28 Norwegian chest tube. Currently vital signs are stable. O2 saturation 97% on nasal cannula. He did tolerate the thoracic vent placement well with local anesthesia with 1% lidocaine as well as 50 mg of Demerol and 1 mg of Versed IV. Status: Acute Attestations Medical Necessity Statement*: POD #1 status post left upper lobectomy with dislodgment of chest tubes and subcutaneous emphysema, Time Spent in Patient Care: Greater than 35 minutes Critical Care Time: Critical Care Time (min): 65 Coding Level of Care Code Acute Guest Service Agent for Yadirag Fwdeanna Diagnoses Status post lobectomy of lung Z90.2
--- NOTE | 2021-04-17 22:29 | P.OP_ITS ---
Operative Report Date of procedure: April 17, 2021 Pre-op Diagnosis: Left upper lobectomy/dislodged chest tube with subcutaneous emphysema Post-op diagnosis: same Procedure Done: Left 13 Portuguese thoracic vent placement Implants: 13 Portuguese thoracic vent Pathology: none sent Surgeon: Nikolai Noel Anesthesia: Local and Other (IV sedation with 50 mg of Demerol and 1 mg Versed) Complications: None Condition: stable Disposition: ICU Brief History: Mr. Tabares is postop day #1 status post left upper lobectomy. Apparently while transitioning from the chair to the bed without assistance while in the ICU he dislodged his chest tubes. Initial reports did not describe substantial dislodgment though this is clearly evident upon my arrival with massive subcutaneous emphysema and the anterior chest tube well out past its limits with fluids visible. I recommended expeditious bedside thoracic vent placement and removal of his dislodged chest tube. This was done in the urgent fashion, so informed consent was not obtained.appropriate timeout was obtained with members of the ICU present. Procedure: After careful positioning, patient received a total of 1 mg of Versed and 50 mg of Demerol slow IV with continuous monitoring of heart rate, blood pressure, EKG, and O2 saturation. His left anterior chest wall was then steri krista prepped and draped. 1% lidocaine was infiltrated in the mid clavicular line over the second intercostal space. A #11 scalpel blade was used to incise the skin. Next, a trocar 13 Portuguese thoracic vent was inserted through the incision and then by direct firm and controlled pressure into the left pleural space where the vent was advanced over the trocar as it was removed. There was a prompt return of air. The vent was secured to the skin with adhesive tabs and also with 2-0 silk suture. The vent was then connected to Pleur-evac suction where further air was evacuated. Vital signs remained stable throughout the procedure. Dressings were secured. Chest x-ray is pending. Given the substantial amount of subtendinous emphysema, we will need to confirm that the thoracic vent remains in adequate position, if there is any question, I may recommend a formal 28 Portuguese chest to be placed at bedside. The clearly dislodged chest tube was removed and this site was secured and Vaseline gauze was applied. The other more posterior original operative chest tube remains in position and to Pleur-evac suction. I will remain in house overnight for frequent assessments.
[2021-04-18] VITALS (114 sets, daily range): BP systolic 83–164; BP diastolic 52–104; PULSE 73–108; RESP 13–33; TEMP 36.7–37.9; O2SAT 91–100
[2021-04-18] MEDS: meperidine 50 mg/mL INJ IVP (00:01)
[2021-04-18] MEDS: midazolam 1 mg/mL INJ 2 mL IVP (00:01)
--- NOTE | 2021-04-18 00:20 | XRR_ITS ---
PROCEDURE INFORMATION: Exam: XR Chest Exam date and time: 04/18/2021 12:20 AM Age: 70 years old Clinical indication: Device placement; Chest tube; Additional info: Chest tube placement TECHNIQUE: Imaging protocol: XR of the chest. Views: 1 view. COMPARISON: CR (CHEST, ) 04/17/2021 9:59 PM FINDINGS: Tubes, catheters and devices: Stable left-sided chest tubes. Lungs: Unremarkable. No consolidation. Pleural spaces: Tiny residual left apical pneumothorax. Heart/Mediastinum: Surgical clips are present in the mediastinum. Bones/joints: Unremarkable. Soft tissues: Stable, diffuse soft tissue emphysema. XR/XR chest 1V portable [id number] IMPRESSION: 1. Stable left-sided chest tubes. 2. Stable, diffuse soft tissue emphysema. 3. Tiny residual left apical pneumothorax. Radiation Dose CTDIVOL = (mGy): DLP = (mGy-cm)
--- NOTE | 2021-04-18 00:38 | PM.OP ---
Operative Report Date of procedure: April 18, 2021 Pre-op Diagnosis: Left upper lobectomy/dislodged chest tube with subcutaneous emphysema Post-op diagnosis: same Procedure Done: Left 28 Ethiopian thoracostomy tube placement Surgeon: Nikolai Noel Anesthesia: Local (1 mg Versed, 50 mg Demerol IV, 12 cc 1% lidocaine infiltrated locally) Estimated blood loss (mL): 5 IV fluids (mL): 50 Complications: None Condition: stable Disposition: ICU Brief History: Mr. Tabares had a previous 13 Ethiopian thoracic vent placed after dislodgment of his chest tube during transfer from the chair to the bed. He is now postop day 2 status post left upper lobectomy. Upon reinspection, there appears to be some continued subcutaneous emphysema in his neck, though I am not sure that it may just simply be migration from previously collected subcutaneous emphysema. Given the substantial amount of subcutaneous emphysema on the left anterior chest wall, is a margin of safety for concerns of possible elevation of the thoracic vent out of the pleural cavity, I have recommended a left 28 Ethiopian chest tube to be placed. Timeout was performed at bedside. Procedure: Procedure: The patient was placed in the supine position with the left chest slightly elevated. IV conscious sedation using 1 mg of Versed and 50 mg of IV Demerol was given with continous monitoring of heart rate, rhythm, ekg, and O2 saturation. The entire left anterior and lateral chest was thoroughly prepped and draped. 1% lidocaine was infiltrated in the midclavicular line over the seventh rib. A #10 scalpel blade was used to incise the skin, silk stay suture was placed, followed by utilizing a small hemostat to enter the pleural space. A 28 Ethiopian thoracic drain was placed. Chest tube was secured to the skin followed by placement of sterile dressings. Chest tube is placed to Pleur-evac suction. Mr. Tabares tolerated the procedure well and chest x-ray obtained at bedside. We will leave chest tube to suction with planned serial chest x-rays. Vital signs remained stable throughout the procedure with O2 saturations between 96 and 98%.
--- NOTE | 2021-04-18 04:19 | PC.NURSE ---
Addendum entered by Yaima Carr RN 04/18/21 05:36: Dr. Aranda rounded on patient at 0510. No new orders received. Original Note: During day shift while transferring from chair to bed, patients chest tubes were pulled. Subcutaneous air was found throughout left shoulder and continue to spread throughout chest, down right arm, and throughout face. Dr. Aranda was notified and came to evaluate patient. Dr. Aranda placed a thora-vent to left upper chest. X-ray was preformed to confirm placement and one old pleural chest tube was removed. Pt was monitored and subcutaneous emphysema worsened and Dr. Aranda was notified. Dr. Aranda placed new pleural chest tube.
[2021-04-18 05:44] LABS: Basophils % 0.2 %; Eosinophils # 0.1 10^3/uL (0.0-0.8); Eosinophils % 0.4 %; Hematocrit 35.6 % (42.0-52.0); Hemoglobin 11.4 g/dL (11.7-16.6); Lymphocytes # 1.3 10^3/uL (0.8-4.8); Lymphocytes % 9.9 %; Mean Corpuscular Hemoglobin 31.5 pg (28.0-34.0); Mean Corpuscular Volume 98.3 fl (80-94); Monocytes # 0.8 10^3/uL (0.2-0.9); Monocytes % 6.3 %; Neutrophils # 10.54 10^3/uL (1.8-7.7); Neutrophils % 82.7 %; Nucleated Red Blood Cells % 0 %; Platelet Count 228 10^3/cmm (130-400); Red Blood Count 3.62 10^6/uL (4.1-5.3); Red Cell Distribution Width 12.7 % (12.1-15.1); White Blood Count 12.7 10^3/uL (4.0-10.0)
--- NOTE | 2021-04-18 05:54 | P.PN_ITS ---
Subjective Subjective: Interval history: POD #2 status post left upper lobectomy. Pathology pending. Due to dislodgment of his chest tube yesterday evening while transferring from chair to bed, I have separately placed a left 13 Kosovan thoracic vent and a left 28 Kosovan chest tube. He has no air leak this morning. Diffuse subcutaneous emphysema is now migrating to the neck and through the face. No breathing difficulties. Taking oral intake without difficulty. Chest x-ray revealed just a rim of a pneumothorax with support lines in position. Has a good and effective cough and is no longer bringing up any substantial amount of hemoptysis. Vitals/I&O/Wt Last Vital Signs Temp 100.3 F H 04/18/21 04:00 Pulse 88 04/18/21 04:00 Resp 16 04/18/21 04:00 BP 125/65 04/18/21 03:05 Pulse Ox 94 04/18/21 04:00 04/17/21 04/17/21 04/18/21 14:59 22:59 06:59 Intake Total 1060 / 1060 1380 / 2440 Output Total 1500 / 1500 900 / 2400 750 / 3150 Balance -440 / -440 480 / 40 -750 / -710 Weight last 48 hrs Weight 216 lb Physical Exam Chest: OTHER: Subcutaneous emphysema across the anterior chest wall and base of the neck and into the face. Resp: COMMON NORMALS: clear to auscultation bilaterally AUSCULTATION: clear to auscultation bilaterally Urinary Catheter Management^: Pantoja Latex: Cath Placed During This Visit: yes Reason for Continuing Indwelling Catheter: Accurate Measurement of Urinary Output in Critically Ill Patients Urinary Catheter Date of Insertion: 04/16/21 Urinary Catheter Time of Insertion: 07:40 Data : 04/18/21 04:57 04/17/21 03:40 A&P Assessment and plan (1) Status post lobectomy of lung: POD #2 status post left upper lobectomy with subsequent chest tube dislodgment requiring thoracic vent and new chest tube. No air leak noted. Plan: Given the events of yesterday, I will not transfer to the flores today. We will keep the chest tubes to suction and consider transitioning to waterseal later today or tomorrow. Will continue to observe his obtain his emphysema though I think this will take some time to resolve, but does appear to be stabilized. Out of bed in chair continue pulmonary toilet Status: Acute Attestations Medical Necessity Statement*: POD #2 status post left upper lobectomy Time Spent in Patient Care: 16 - 35 minutes Coding Level of Care Code Acute Distribution Supervisor for Chg Fwd Diagnoses Status post lobectomy of lung Z90.2
--- NOTE | 2021-04-18 06:00 | XRR_ITS ---
PROCEDURE INFORMATION: Exam: XR Chest Exam date and time: 04/18/2021 6:00 AM Age: 70 years old Clinical indication: Mass, lump, or swelling in the chest; Prior surgery; Surgery date: Post-operative (0-2 days); Patient HX: Patient S/P left lobectomy. Sudden swelling of left upper chest wall around thoracic vent. ; Additional info: Pod#2 S/P lobectomy TECHNIQUE: Imaging protocol: XR of the chest. Views: 1 view. COMPARISON: CR XR chest 1V portable [id number] 04/18/2021 12:25 AM FINDINGS: Tubes, catheters and devices: Stable left-sided chest tubes. Surgical clips overlie the left side of the chest. Lungs: Unremarkable. No consolidation. Pleural spaces: Stable tiny left pneumothorax. Heart/Mediastinum: Unremarkable. No cardiomegaly. Bones/joints: Unremarkable. Soft tissues: Stable diffuse soft tissue emphysema. XR/XR chest 1V portable [id number] IMPRESSION: 1. Stable diffuse soft tissue emphysema. 2. Stable tiny left pneumothorax. Radiation Dose CTDIVOL = (mGy): DLP = (mGy-cm)
[2021-04-18 06:10] LABS: Anion Gap 13.8 (5-19); Blood Urea Nitrogen 14 mg/dL (8-23); Calcium 7.9 mg/dL (8.5-10.5); Carbon Dioxide 26 mmol/L (22-29); Chloride 102 mmol/L (98-107); Glomerular Filtration Rate 83.9 mL/min (90-130); Glucose 145 mg/dL (65-115); Osmolality Calculated 289 mOsm/kg (285-295); Potassium 3.8 mmol/L (3.5-5.1); Sodium 138 mmol/L (136-145)
--- NOTE | 2021-04-18 08:35 | ANE.PACU2 ---
Inpatient post-anesthesia follow up: Airway intact: Yes Vital signs: Temperature 98.3 F Pulse Rate 87 Respiratory Rate 21 Blood Pressure 83/58 Pulse Oximetry 95 Oxygen Delivery Me thod Nasal Cannula Oxygen Flow Rate 3 Fraction of Inspir ed Oxygen Hydration adequate: Yes Nausea and vomiting: No Pain level: 2 Mental status: Baseline Additional Comments: POD#2, substantial subQ air after dislodgement of CT last night, pain control adequate, up in bed eating breakfast, no change to epidural management
--- NOTE | 2021-04-18 10:39 | PC.NURSE ---
04/17/21: 1145: back to bed with staff assist. encouraged to stay up for lunch. stated he needed to get in bed.
--- NOTE | 2021-04-18 10:46 | PC.NURSE ---
04/17/21; 1300: appitite good for lunch. explained we would get him back to chair for supper about 1630. he agreed.
--- NOTE | 2021-04-18 10:48 | PC.NURSE ---
04/17/21; 1430: cough effort poor. resp. care in and got pt. to cough up thick brown pink tinged secretions. has had moist cough throughout the day. w/o producing any secretions until now.
--- NOTE | 2021-04-18 10:51 | PC.NURSE ---
04/17/21; 1630: staff assisted pt up to chair for supper. tol. altamirano
--- NOTE | 2021-04-18 10:52 | PC.NURSE ---
04/17/21; 1700: duo-derm type dressin covering incision has rolled off the site approx. 1/[address] way. removed. incision cleaned with betadine swabs and island dressings applied. all leonides in tact with no redness or edema around site. no drainage.
--- NOTE | 2021-04-18 10:56 | PC.NURSE ---
04/17/21; 183: call light on, found pt. had gotten up out of chair and to bed. very short of breath. with staff assist chest tubes and sanchez cath sitess investigated, sanchez in tact but chest tube, 1 site, air could be heard escaping, redressed with xerofoam gauze around each tube snd chest tube sites covered with island dressings. large leak in waterseal chamber noted. no sub q emphesema noted at this time. remained in lots pain. stat chest x-ray ordered. pain meds given.
--- NOTE | 2021-04-18 11:07 | PC.NURSE ---
04/17/21; 1830: dr. santacruz was notified of incident.
[2021-04-18] MEDS: oxyCODONE-APAP 5-325 mg Tablet 1 TAB PO ×2 (14:07→19:26)
[2021-04-18] MEDS: vancomycin 1,500 MG/300 ML PIGGYBACK 200 MG IV (14:28)
[2021-04-18] MEDS: guaiFENesin 100 mg/5 mL UDC 10 mL 200 MG PO ×2 (16:20→20:20)
--- NOTE | 2021-04-18 21:21 | PC.NURSE ---
Education Patient states pain present upon coughing. Education provided on deep breathing/IS use and increasing fluid intake. Pain medications available to patient discussed; patient does not want pain medication at this time as he wishes to see if the robitussin administered per MAR will delay cough.
[2021-04-19] VITALS (34 sets, daily range): BP systolic 107–158; BP diastolic 54–104; PULSE 77–96; RESP 14–23; TEMP 36.5–37.8; O2SAT 90–99; BMI 34.7
[2021-04-19] MEDS: oxyCODONE-APAP 5-325 mg Tablet 1 TAB PO ×2 (00:19→10:50)
[2021-04-19] MEDS: guaiFENesin 100 mg/5 mL UDC 10 mL 200 MG PO ×5 (00:20→21:57)
[2021-04-19] MEDS: vancomycin 1,500 MG/300 ML PIGGYBACK 200 MG IV ×2 (01:56→13:40)
--- NOTE | 2021-04-19 06:00 | XR_ITS ---
WS: [id number] Exam: XR chest 1V portable [id number] Date/Time of Exam: 04/19/2021 6:00 AM Reason For Exam: POD #3 status post left upper lobectomy Comparison 04/18/2021. Extensive subcutaneous emphysema over the bilateral chest and neck. The lungs appear to be fully expa nded. A left-sided chest tube is in place unchanged. A small check valve is been placed in the left p leural cavity. Surgical skin clips along the left chest. Cardiomediastinal silhouette is unremarkable . No pleural effusion seen. XR/XR chest 1V portable [id number] IMPRESSION: 1. Extensive the subcutaneous emphysema over the bilateral neck and chest showi ng little change. 2. No obvious pneumothorax is seen. No infiltrates are noted. 3. Chest tube in place in the left pleural cavity unchanged in position.
--- NOTE | 2021-04-19 06:39 | PC.NURSE ---
Addendum entered by Kari Patricio RN 04/19/21 06:41: Chest tubes remain in place, in addition to patient's thoravent. Patient continues to have use of pcea pump; dressing is dry and intact. Crepitus remains to be felt in upper chest. All vital signs remain stable. Original Note: Shift Note Frequent safety and comfort rounds continue. Orders and/or nursing care completed as indicated. Patient monitored for response to intervention and treatment(s). Education provided includes IS/TCDB reinforcement, information on prescribed pain medication and robitussin, fall risk status/precautions, and treatment goals. Patient verbalized understanding. Will continue to monitor.
[2021-04-19] MEDS: citalopram 20 mg Tablet PO (08:52)
--- NOTE | 2021-04-19 10:00 | PM.PN ---
Subjective Subjective: Interval history: Postop day #3 status post left upper lobectomy. The postop substantial subcutaneous emphysema which occurred following dislodgment of his chest tubes is substantially improved after placement of a left thoracic vent and a 28 Kazakh chest tube. Tube output 317 cc past 24 hours. There is no air leak that I can determine while he is sitting up on suction. Chest x-ray reveals clear lung macias. No effusion or substantial infiltrates. His subcutaneous emphysema continues to improve. Pathology is still pending. Vitals/I&O/Wt Last Vital Signs Temp 98.2 F 04/19/21 07:00 Pulse 96 04/19/21 09:04 Resp 19 H 04/19/21 09:04 BP 141/75 04/19/21 09:04 Pulse Ox 98 04/19/21 09:04 04/18/21 04/19/21 04/19/21 22:59 06:59 14:59 Intake Total 1100 / 1700 1560 / 3260 300 / 300 Output Total 1309 / 3462 2630 / 6092 Balance -209 / -1762 -1070 / -2832 300 / 300 Weight last 48 hrs Weight 221 lb 8 oz Physical Exam Chest: OTHER: Chest tubes and drains are in position. Subcutaneous emphysema easily palpable blood though improving. Resp: COMMON NORMALS: normal respiratory effort and clear to auscultation bilaterally EFFORT & INSPECTION: Yes able to speak in complete sentences, Yes symmetric chest movement and No respiratory distress AUSCULTATION: clear to auscultation bilaterally Cardio: COMMON NORMALS: regular rate, regular rhythm, S1 normal heart sound present, No murmurs present (Cardio) and No rub (Cardio) RATE: regular rate RHYTHM: regular rhythm HEART SOUNDS: S1 normal heart sound present Extremity: COMMON NORMALS: no clubbing, cyanosis or edema Urinary Catheter Management^: Pantoja Latex: Cath Placed During This Visit: yes Reason for Continuing Indwelling Catheter: Accurate Measurement of Urinary Output in Critically Ill Patients Urinary Catheter Date of Insertion: 04/16/21 Urinary Catheter Time of Insertion: 07:40 Data : 04/18/21 04:57 04/18/21 04:57 A&P Assessment and plan (1) Status post lobectomy of lung: Postop day #3 status post left upper lobectomy. Plan: I will remove the thoracic vent in place the other chest tubes to Pleur-evac suction. He may be transferred out of the ICU to the medical/surgical flores Dr. Lopez has been gracious enough to assume attending physician duties. I will be off service the remainder of the week. I have personally discussed Mr. Tabares's condition with Dr. Lopez, whom he has cared for previously. I greatly appreciate his assistance and expertise. Status: Acute Attestations Medical Necessity Statement*: Postop day #3 status post left upper lobectomy for continued hemoptysis and a cavitary lesion. Pathology pending. Time Spent in Patient Care: 16 - 35 minutes Coding Level of Care Code Acute Blacksmith Supervisor for Chg Fwd Diagnoses Status post lobectomy of lung Z90.2
--- NOTE | 2021-04-19 12:03 | PC.CHAP ---
Pastoral Care Encounter/Spiritual Assessment Type of Contact [] Declined business excellence manager visit [] Patient/Family/Request visit [] Outpatient visit [xx] Follow-up visit [] Physician referral [] Code/Alert [xx] Routine visit [] Staff referral [] Actively dying [] Patient sleeping [] Family support [] [] Out of room [] Palliative care [] [] Receiving care in room [] Pre-surgical visit [] Trauma [] Long length of stay [xx] ICU visit [] Other: Relational/Emotional Strength [xx] Patient feels connected with others/family/visitors/staff [] Distress [] Loneliness/isolation [] Abandonment Spirituality of Patient [xx] Person of Belinda [xx] Attends Mandaen of their Belinda [xx] Believes in Prayer [] Reads Bible or Scientologist materials [] There are Spiritual issues to be addressed Pathologist Assistant Interventions [xx] Prayer [xx] Active listening [xx] Non-anxious presence [] Spiritual/emotional support [] Crisis/trauma care [] Spiritual counseling [] Bereavement support [] Provided bereavement packet [] Provided Bible/devotional materials [] Provided toy/stuffed animal, coloring book to patient or family member [] Provided Communion [] Anointing/Bardolph [] Salvation [xx] Completed spiritual assessment [] Other: Impact on Illness or Injury [] Angry [] Fearful [] Anxious [] Often cries [] Exhaustion [] Unable to work [] Unable to attend methodist [] Unable to walk/stand [] Unable to read [] Unable to drive [] Unable to eat/drink [] Unable to sleep [] Unable to be with family [] Patient intubated [] Other: Summary Patient feeling much better. He is hoping to be discharged by evening. He was very pleasant to talk to. present but she did not speak much. Time spent with patient 7 minutes
--- NOTE | 2021-04-19 13:51 | ANE.PACU2 ---
Inpatient post-anesthesia follow up: Airway intact: Yes Vital signs: Temperature 98.2 F Pulse Rate 88 Respiratory Rate 16 Blood Pressure 137/86 Pulse Oximetry 94 Oxygen Delivery Me thod Room Air Oxygen Flow Rate 3 Fraction of Inspir ed Oxygen Hydration adequate: Yes Nausea and vomiting: No Pain level: 2 Mental status: Baseline Additional Comments: POD#3, appears comfortable up in chair, chest tubes in place, plan to remove epidural when chest tubes removed.
--- NOTE | 2021-04-19 15:27 | PC.SOCIAL ---
IMM update IMM updated with patient and at bedside. Copy Pg 2 provided. Verbalized an understanding. Initialled, dated, timed, and placed in chart.
[2021-04-19] MEDS: ketorolac 30 mg/mL INJ IVP (22:07)
[2021-04-20] VITALS (11 sets, daily range): BP systolic 120–184; BP diastolic 62–92; PULSE 74–96; RESP 16–18; TEMP 36.4–37.1; O2SAT 94–98
[2021-04-20] MEDS: vancomycin 1,500 MG/300 ML PIGGYBACK 200 MG IV ×2 (02:13→16:04)
[2021-04-20] MEDS: guaiFENesin 100 mg/5 mL UDC 10 mL 200 MG PO ×3 (03:50→21:15)
[2021-04-20] MEDS: LORazepam 2 mg/mL INJ 1 mL 1 MG IVP (04:54)
--- NOTE | 2021-04-20 06:00 | XRR_ITS ---
PROCEDURE INFORMATION: Exam: XR Chest Exam date and time: 04/20/2021 6:00 AM Age: 70 years old Clinical indication: Device placement; Other: Pod#$ S/P lobectomy. Chest tubes to water seal; Prior surgery; Surgery date: Post-operative (0-2 days) TECHNIQUE: Imaging protocol: XR of the chest. Views: 1 view. COMPARISON: CR XR chest 1V portable [id number] 04/19/2021 5:21 AM FINDINGS: Tubes, catheters and devices: Thoracotomy tube on the left directed to the apex. Small residual pneumothorax.Subcutaneous emphysema in the soft tissues about the right and left ekaterina thoraces and neck. Lungs: Mild interstitial prominence within the lung bases. Pleural spaces: See Tubes, catheters and devices finding. Heart/Mediastinum: Unremarkable. No cardiomegaly. Bones/joints: Unremarkable. XR/XR chest 1V portable [id number] IMPRESSION: Thoracotomy tube on the left directed to the apex. Small residual pneumothorax.Subcutaneous emphysema in the soft tissues about the right and left ekaterina thoraces and neck. Surgical clips left hilum. Radiation Dose CTDIVOL = (mGy): DLP = (mGy-cm)
--- NOTE | 2021-04-20 08:47 | ANE.PACU2 ---
Inpatient post-anesthesia follow up: Airway intact: Yes Vital signs: Temperature 98.4 F Pulse Rate 74 Respiratory Rate 18 Blood Pressure 136/82 Pulse Oximetry 94 Oxygen Delivery Me thod Room Air Oxygen Flow Rate 3 Fraction of Inspir ed Oxygen Hydration adequate: Yes Nausea and vomiting: No Pain level: 2 Mental status: Baseline Additional Comments: POD#4, in bed eating, appears comfortable, plan to remove epidural tomorrow.
--- NOTE | 2021-04-20 09:54 | PM.MISC ---
Miscellaneous Note Purpose of Documentation: Postop day #4 status post left upper lobectomy. Pathology is still pending. There is no airleak while on waterseal overnight. Chest x-ray is stable. Subcutaneous emphysema is slowly improving. I removed his chest tubes. Also removed his epidural catheter. Black tip was intact. New dressings applied. Recommendation: May ambulate. Chest x-ray in a.m. Chest x-ray is stable. Patient may be discharged after clearance by Dr. Lopez. Activity and weight restrictions x2 weeks.
[2021-04-20] MEDS: pantoprazole DR 40 mg Tablet PO (09:59)
[2021-04-20] MEDS: oxyCODONE-APAP 5-325 mg Tablet 1 TAB PO (09:59)
[2021-04-20] MEDS: citalopram 20 mg Tablet PO (09:59)
--- NOTE | 2021-04-20 10:05 | P.CONIM_ITS ---
Providers/Reason For Consult Consulting Physician/Specialty*: Singh Lopez MD Reason for Consult*: S/p status post left upper lobectomy. Requesting Physician: Mcgee. Nikolai VAUGHAN Attending Physician: Mcgee. Nikolai VAUGHAN Primary Care Provider: Eliel Corley DO History of Present Illness History of Present Illness Mr. Tabares is a 70-year-old gentleman underwent left upper lobectomy by Dr. 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 Initially i saw the pt in my clinic and did navigational bronchoscopy technique multiple transbronchial biopsies and fine-needle aspirations from the left upper lung opacity on March 19, though unfortunately no definitive diagnosis was confirmed. Cultures grew group g streptococcus for which he was treated with antibiotics. But patient continued to have hemoptysis and give his significant smoking history and PET avid lesions in lungs, he was seen by Dr. Noel to assess for left upper lobectomy. Meanwhile he also underwent EBUS guided FNAC of 10L lymph node on 04/09/[address] Che which turned out to be negative as well. other pertinent past medical history: Has not smoked since 2010 though he does have a [id number] history. He also has sleep apnea and is on CPAP at night and also has COPD. He suffered a COVID-19 infection in July of this year though appears to have fully recovered. Patient underwent left upper lobectomy 04/16/21, today is post op day# 4. post op course complicated by dislodged chest tube and development of significant subcutaneous emphysema. Dr. Noel placed 13 Fr thora vent and additional 28 Fr left chest tube on 04/17. Subcutaneous emphysema continue to improve and today on postop day for both the chest tubes and epidural catheters were removed. As Dr. Noel is not on-call for the next few days, I requested me to see the patient. Patient seen at bedside today morning-looked in good spirits -Reported no BM yet but is currently passing gas -Tolerating diet -Denied any difficulty breathing and says that his subcu emphysema and pain around his face and neck has improved -Other labs and imaging reviewed Review of Systems General: Reports: 10 or more systems reviewed and unremarkable except in HPI and below Meds/Allergies Home Medications and Allergies Home Medications Medication Instructions Recorded Confirmed Last Taken Type citalopram 20 mg tablet 20 mg PO DAILY 06/12/20 04/11/21 03/18/21 History simvastatin 40 mg tablet 40 mg PO DAILY 06/12/20 04/11/21 03/18/21 History albuterol sulfate 90 mcg/actuation 2 puff INHALATION Q6H PRN #8.5 g 02/27/21 04/11/21 Unknown Rx aerosol inhaler Allergies Allergy/AdvReac Type Severity Reaction Status Date / Time Penicillins Allergy childhood Verified 04/09/21 06:57 reaction/unknown Current Medications Current Medications Generic Name Dose Route Start Last Admin Trade Name Freq PRN Reason Stop Dose Admin Citalopram Hydrobromide 20 mg 04/17/21 09:00 04/20/21 09:59 Citalopram 20 Mg Tablet PO 20 mg DAILY SHAWNEE Administration Guaifenesin 200 mg 04/16/21 12:25 04/20/21 03:50 Guaifenesin 100 Mg/5 Ml Udc 10 Ml PO 200 mg Q4H PRN Administration COUGH Ropivacaine 200 mg in 100 mls @ 6 mls/hr 04/16/21 07:45 04/20/21 02:09 Naropin Premix EPIDURAL 6 mls/hr .[id number] SHAWNEE Administration Vancomycin/PEG/NADA/Lysine/Water 1,500 mg in 300 mls @ 200 mls/hr 04/18/21 14:15 04/20/21 04:45 Vancocin IV Infused Q12H SHAWNEE Infusion Ketorolac Tromethamine 30 mg 04/16/21 12:25 04/19/21 22:07 Ketorolac 30 Mg/Ml Inj IVP 04/21/21 12:24 30 mg Q6H PRN Administration MODERATE PAIN Lorazepam 1 mg 04/16/21 12:25 04/20/21 04:54 Lorazepam 2 Mg/Ml Inj 1 Ml IVP 1 mg Q6H PRN Administration ANXIETY Morphine Sulfate 2 mg 04/16/21 12:25 04/17/21 18:25 Morphine 4 Mg/Ml Sdv 1 Ml IVP 2 mg Q1H PRN Administration SEVERE PAIN Non-Formulary 0 each 04/18/21 18:00 04/19/21 17:25 Medication - PO 1 each Simvastatin 40 Mg QPM SHAWNEE Administration Ondansetron HCl 4 mg 04/16/21 07:39 04/16/21 12:47 Ondansetron 2 Mg/Ml Sdv 2 Ml IVP 4 mg Q4H PRN Administration NAUSEA AND VOMITING Oxycodone/Acetaminophen 1 tab 04/16/21 12:25 04/20/21 09:59 Oxycodone-Apap 5-325 Mg Tablet PO 1 tab Q4H PRN Administration SEVERE PAIN Pantoprazole Sodium 40 mg 04/17/21 09:00 04/20/21 09:[address] 40 Mg Tablet PO 40 mg DAILY SHAWNEE Administration Tramadol HCl 50 mg 04/16/21 12:25 04/17/21 03:15 Tramadol 50 Mg Tablet PO 50 mg Q4H PRN Administration MODERATE PAIN PFSH Acute PFSH: Medical History History of nonmelanoma skin cancer Hypercholesteremia Surgical History Status post lobectomy of lung Family History Other CAD (coronary artery disease) Cancer Denies family history of Diabetes Stroke Social History Quit status (tobacco): has quit using tobacco Year quit tobacco: 2010 Former quit date comment: 1.5ppd x 50 years Alcohol intake: former History of recent travel: No Vitals/I&O/Wt Last Vital Signs Temp 98.4 F 04/20/21 07:42 Pulse 74 04/20/21 07:42 Resp 18 04/20/21 09:59 BP 136/82 04/20/21 07:42 Pulse Ox 94 04/20/21 07:42 04/19/21 04/20/21 04/20/21 22:59 06:59 14:59 Intake Total 960 / 1660 400.000 / 2060.000 Output Total 900 / 2250 1825 / 4075 Balance 60 / -590 -1425.000 / -2015.000 Weight last 48 hrs Weight 228 lb 5 oz Weight 221 lb 8 oz Physical Exam Narrative: EXAM NARRATIVE: General: alert, NAD HEENT: conj clear, EOMI, PERRL, mmm, Neck: supple, no meningismus Heme: no cervical LAP Pulmonary: CTAB, no wheezing, rhonchi, crackles Cardiovascular: rrr, nl s1s2, no mrg Abdomen: soft, nt, nd, no r/g, bs+ Extremities: pulses +, no edema, no c/c : no CVA tenderness Skin: intact, no rash MSK: no back or neck pain Neurologic: grossly intact Urinary Catheter Management^: Pantoja Latex: Cath Placed During This Visit: yes Reason for Continuing Indwelling Catheter: Accurate Measurement of Urinary Output in Critically Ill Patients Urinary Catheter Date of Insertion: 04/16/21 Urinary Catheter Time of Insertion: 07:40 Data Labs: Other Labs: Laboratory Results WBC 12.7 10^3/uL (4.0 -10.0) H 04/18/21 04:57 RBC 3.62 10^6/uL (4.1 -5.3) L 04/18/21 04:57 Hgb 11.4 g/dL (11.7-1 6.6) L 04/18/21 04:57 Hct 35.6 % (42.0-52.0 ) L 04/18/21 04:57 MCV 98.3 fl (80-94) H 04/18/21 04:57 MCH 31.5 pg (28.0-34. 0) 04/18/21 04:57 MCHC 32.0 g/dL (30.0-3 6.0) 04/18/21 04:57 RDW 12.7 % (12.1-15.1 ) 04/18/21 04:57 Plt Count 228 10^3/cmm (130 -400) 04/18/21 04:57 MPV 11.0 fL (7.4-10.4 ) H 04/18/21 04:57 Neut % (Auto) 82.7 % 04/18/21 04:57 Lymph % (Auto) 9.9 % 04/18/21 04:57 [place] % (Auto) 6.3 % 04/18/21 04:57 Eos % (Auto) 0.4 % 04/18/21 04:57 Baso % (Auto) 0.2 % 04/18/21 04:57 Neut # (Auto) 10.54 10^3/uL (1. 8-7.7) H 04/18/21 04:57 Lymph # (Auto) 1.3 10^3/uL (0.8- 4.8) 04/18/21 04:57 [place] # (Auto) 0.8 10^3/uL (0.2- 0.9) 04/18/21 04:57 Eos # (Auto) 0.1 10^3/uL (0.0- 0.8) 04/18/21 04:57 Baso # (Auto) 0.0 10^3/uL (0.0- 0.1) 04/18/21 04:57 Nucleated RBC % (a uto) 0 % 04/18/21 04:57 Nucleated RBCs # 0.0 /100WBC 04/18/21 04:57 PT 12.50 SECONDS (12 .1-14.9) 04/11/21 12:00 INR 0.90 (0.8-1.2) 04/11/21 12:00 Sodium 138 mmol/L (136-1 45) 04/18/21 04:57 Potassium 3.8 mmol/L (3.5-5 .1) 04/18/21 04:57 Chloride 102 mmol/L (98-10 7) 04/18/21 04:57 Carbon Dioxide 26 mmol/L (22-29) 04/18/21 04:57 Anion Gap 13.8 (5-19) 04/18/21 04:57 BUN 14 mg/dL (8-23) 04/18/21 04:57 Creatinine 0.9 mg/dL (0.7-1. 2) 04/18/21 04:57 GFR Calculation 83.9 mL/min (90-1 30) L 04/18/21 04:57 Glucose 145 mg/dL (65-115 ) H 04/18/21 04:57 Calculated Osmolal ity 289 mOsm/kg (285- 295) 04/18/21 04:57 Calcium 7.9 mg/dL (8.5-10 .5) L 04/18/21 04:57 Urine Color Yellow (Yellow) 04/11/21 12:00 Urine Appearance Clear (CLEAR) 04/11/21 12:00 Urine pH 5 (5-7) 04/11/21 12:00 Ur Specific Gravit y 1.025 (1.005-1.0 30) 04/11/21 12:00 Urine Protein Neg (Negative) 04/11/21 12:00 Urine Glucose (UA) Norm (Normal) 04/11/21 12:00 Urine Ketones Negative (Negati ve) 04/11/21 12:00 Urine Blood Neg (Negative) 04/11/21 12:00 Urine Nitrate Negative (Negati ve) 04/11/21 12:00 Urine Bilirubin Neg (Negative) 04/11/21 12:00 Urine Urobilinogen Norm mg/dL (Negat katrina) 04/11/21 12:00 Ur Leukocyte Keila ase Negative (Negati ve) 04/11/21 12:00 Vancomycin Trough 7.0 ug/mL (10-15) L 04/18/21 12:42 Blood Type A Negative 04/11/21 12:00 Rho(D) Type Negative 04/11/21 12:00 Antibody Screen Negative 04/11/21 12:00 Crossmatch See Detail 04/11/21 12:00 Impressions Chest X-Ray 04/20/21 06:00 IMPRESSION: Thoracotomy tube on the left directed to the apex. Small residual pneumothorax.Subcutaneous emphysema in the soft tissues about the right and left ekaterina thoraces and neck. Surgical clips left hilum. Radiation Dose CTDIVOL = (mGy): DLP = (mGy-cm) A&P Assessment and plan (1) Left pulmonary lesion: Status: Acute (2) Pulmonary cavitary lesion: Status: Acute (3) Status post lobectomy of lung: Status: Acute (4) LISS (obstructive sleep apnea): Status: Acute (5) COPD (chronic obstructive pulmonary disease): Status: Acute Qualifiers: COPD type: unspecified COPD Qualified Code(s): J44.9 - Chronic obstructive pulmonary disease, unspecified (6) Ex-smoker: Status: Acute # s/p left upper lobectomy for pulmonary cavitary lesion - POD # 4 - morning chest xray is normal; chest tubes and epidural catherter out today - chest x ray tomorrow am - Narco prn for pain - Biscodyl, colace prn for bowel regimen - continue regular diet - encouraged IS/Albuterol nebs q 6 hr prn for sob/wheezing/ OOB/Physical therapy - currently on Vancomycin - monitor vitals/labs and will plan for discharge in next 1-2 days #Exterior smoker [id number] history quit 2010 currently vaping and chews tobacco #COPD -Counseled to quit tobacco products and he reported using nicotine patches and trying to quit -mMRC 1, no reported exacerbations-group A-given albuterol as needed. - PFTS 04/10/21: The prebronchodilator spirometry is normal. The postbronchodilator spirometry was not performed. Flow volume loop reveals hesi tation during the forced expiratory flow volume loop. Lung volumes are consistent with air trapping. Gas exchange (DLCO) is normal. 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
[2021-04-20] MEDS: docusate sodium 100 mg Capsule PO (11:50)
[2021-04-20 14:24] LABS: Vancomycin Trough 13.6 ug/mL (10-15)
[2021-04-21] VITALS (8 sets, daily range): BP systolic 121–163; BP diastolic 68–93; PULSE 65–83; RESP 16–18; TEMP 36.6–37.1; O2SAT 95–96
[2021-04-21] MEDS: vancomycin 1,500 MG/300 ML PIGGYBACK 200 MG IV (03:02)
[2021-04-21] MEDS: guaiFENesin 100 mg/5 mL UDC 10 mL 200 MG PO ×2 (03:08→15:36)
--- NOTE | 2021-04-21 06:00 | XRR_ITS ---
PROCEDURE INFORMATION: Exam: XR Chest Exam date and time: 04/21/2021 6:00 AM Age: 70 years old Clinical indication: Device placement; Other: Pod #5 status post left upper lobectomy; Prior surgery; Surgery date: Post-operative (0-2 days) TECHNIQUE: Imaging protocol: XR of the chest. Views: 1 view. COMPARISON: CR (CHEST, ) 04/20/2021 6:39 AM FINDINGS: Tubes, catheters and devices: The left chest tubes have been removed. Lungs: Surgical skin leonides project on the left hemithorax from recent surgery. There is subsegmental atelectasis in the left base. The right lung is clear. Pleural spaces: There is a tiny left apical pneumothorax that has decreased since previous study. Heart/Mediastinum: Unremarkable. No cardiomegaly. Bones/joints: Unremarkable. Soft tissues: There is subcutaneous emphysema around the neck and chest especially on the left side. XR/XR chest 1V portable [id number] IMPRESSION: 1. Status post left thoracotomy. 2. The left chest tubes have been removed. There is a tiny left apical pneumothorax that has decreased since previous study. Radiation Dose CTDIVOL = (mGy): DLP = (mGy-cm)
--- NOTE | 2021-04-21 08:45 | P.PN_ITS ---
Subjective Subjective: Interval history: - pt seen at bedside today morning, lying in the bed - No acute events overnight - complained of mild cough and mild pain/discomfort at incision site. tenderness improved on left side chest wall - appeared comfortable and in good spirits - hemodynamically stable - imaging reviewed - subsegmental atelectasis of left lower lobe and resolving apical pneumothorax Medications: Reviewed: Yes Vitals/I&O/Wt Last Vital Signs Temp 97.9 F 04/21/21 07:34 Pulse 80 04/21/21 08:05 Resp 18 04/21/21 08:05 BP 163/88 04/21/21 07:34 Pulse Ox 95 04/21/21 08:05 04/20/21 04/21/21 04/21/21 22:59 06:59 14:59 Intake Total 1879 / 2119 300 / 2420 Output Total 100 / 100 Balance 1879 / 2119 200 / 2320 Weight last 48 hrs Weight 228 lb 8 oz Weight 228 lb 5 oz Physical Exam Narrative: EXAM NARRATIVE: General: alert, NAD HEENT: conj clear, EOMI, PERRL, mmm, Neck: supple, no meningismus Heme: no cervical LAP Pulmonary: CTAB, no wheezing, rhonchi, crackles Cardiovascular: rrr, nl s1s2, no mrg Abdomen: soft, nt, nd, no r/g, bs+ Extremities: pulses +, no edema, no c/c : no CVA tenderness Skin: intact, no rash MSK: no back or neck pain Neurologic: grossly intact Urinary Catheter Management^: Pantoja Latex: Cath Placed During This Visit: yes Reason for Continuing Indwelling Catheter: Accurate Measurement of Urinary Output in Critically Ill Patients Urinary Catheter Date of Insertion: 04/16/21 Urinary Catheter Time of Insertion: 07:40 Data : 04/18/21 04:57 04/18/21 04:57 Other Labs: Laboratory Results WBC 12.7 10^3/uL (4.0-10.0) H 04/18/21 04:57 RBC 3.62 10^6/uL (4.1-5.3) L 04/18/21 04:57 Hgb 11.4 g/dL (11.7-16.6) L 04/18/21 04:57 Hct 35.6 % (42.0-52.0) L 04/18/21 04:57 MCV 98.3 fl (80-94) H 04/18/21 04:57 MCH 31.5 pg (28.0-34.0) 04/18/21 04:57 MCHC 32.0 g/dL (30.0-36.0) 04/18/21 04:57 RDW 12.7 % (12.1-15.1) 04/18/21 04:57 Plt Count 228 10^3/cmm (130-400) 04/18/21 04:57 MPV 11.0 fL (7.4-10.4) H 04/18/21 04:57 Neut % (Auto) 82.7 % 04/18/21 04:57 Lymph % (Auto) 9.9 % 04/18/21 04:57 [place] % (Auto) 6.3 % 04/18/21 04:57 Eos % (Auto) 0.4 % 04/18/21 04:57 Baso % (Auto) 0.2 % 04/18/21 04:57 Neut # (Auto) 10.54 10^3/uL (1.8-7.7) H 04/18/21 04:57 Lymph # (Auto) 1.3 10^3/uL (0.8-4.8) 04/18/21 04:57 [place] # (Auto) 0.8 10^3/uL (0.2-0.9) 04/18/21 04:57 Eos # (Auto) 0.1 10^3/uL (0.0-0.8) 04/18/21 04:57 Baso # (Auto) 0.0 10^3/uL (0.0-0.1) 04/18/21 04:57 Nucleated RBC % (auto) 0 % 04/18/21 04:57 Nucleated RBCs # 0.0 /100WBC 04/18/21 04:57 PT 12.50 SECONDS (12.1-14.9) 04/11/21 12:00 INR 0.90 (0.8-1.2) 04/11/21 12:00 Sodium 138 mmol/L (136-145) 04/18/21 04:57 Potassium 3.8 mmol/L (3.5-5.1) 04/18/21 04:57 Chloride 102 mmol/L (98-107) 04/18/21 04:57 Carbon Dioxide 26 mmol/L (22-29) 04/18/21 04:57 Anion Gap 13.8 (5-19) 04/18/21 04:57 BUN 14 mg/dL (8-23) 04/18/21 04:57 Creatinine 0.9 mg/dL (0.7-1.2) 04/18/21 04:57 GFR Calculation 83.9 mL/min (90-130) L 04/18/21 04:57 Glucose 145 mg/dL (65-115) H 04/18/21 04:57 Calculated Osmolality 289 mOsm/kg (285-295) 04/18/21 04:57 Calcium 7.9 mg/dL (8.5-10.5) L 04/18/21 04:57 Urine Color Yellow (Yellow) 04/11/21 12:00 Urine Appearance Clear (CLEAR) 04/11/21 12:00 Urine pH 5 (5-7) 04/11/21 12:00 Ur Specific [place] 1.025 (1.005-1.030) 04/11/21 12:00 Urine Protein Neg (Negative) 04/11/21 12:00 Urine Glucose (UA) Norm (Normal) 04/11/21 12:00 Urine Ketones Negative (Negative) 04/11/21 12:00 Urine Blood Neg (Negative) 04/11/21 12:00 Urine Nitrate Negative (Negative) 04/11/21 12:00 Urine Bilirubin Neg (Negative) 04/11/21 12:00 Urine Urobilinogen Norm mg/dL (Negative) 04/11/21 12:00 Ur Leukocyte Esterase Negative (Negative) 04/11/21 12:00 Vancomycin Trough 13.6 ug/mL (10-15) 04/20/21 13:33 Blood Type A Negative 04/11/21 12:00 Rho(D) Type Negative 04/11/21 12:00 Antibody Screen Negative 04/11/21 12:00 Crossmatch See Detail 04/11/21 12:00 Impressions Chest X-Ray 04/21/21 06:00 IMPRESSION: 1. Status post left thoracotomy. 2. The left chest tubes have been removed. There is a tiny left apical pneumothorax that has decreased since previous study. Radiation Dose CTDIVOL = (mGy): DLP = (mGy-cm) A&P Assessment and plan (1) Left pulmonary lesion: Status: Acute (2) Pulmonary cavitary lesion: Status: Acute (3) Status post lobectomy of lung: Status: Acute (4) LISS (obstructive sleep apnea): Status: Acute (5) COPD (chronic obstructive pulmonary disease): Status: Acute Qualifiers: COPD type: unspecified COPD Qualified Code(s): J44.9 - Chronic obstructive pulmonary disease, unspecified (6) Ex-smoker: Status: Acute # s/p left upper lobectomy for pulmonary cavitary lesion - POD # 5 - chest tubes and epidural catherter out POD 4 - CXR today There is a tiny left apical pneumothorax that has decreased since previous study. - Narco prn for pain - Biscodyl, colace prn for bowel regimen - continue regular diet - subsegmental atelectasis noted on chest xray today ; encouraged IS/Albuterol nebs q 6 hr prn for sob/wheezing/ OOB/Physical therapy - currently on Vancomycin - will DC after total 5 days - monitor vitals/labs and will plan for discharge in next 1-2 days #Exterior smoker [id number] history quit 2010 currently vaping and chews tobacco #COPD -Counseled to quit tobacco products and he reported using nicotine patches and trying to quit -mMRC 1, no reported exacerbations-group A-given albuterol as needed. - PFTS 04/10/21: The prebronchodilator spirometry is normal. The postbronchodilator spirometry was not performed. Flow volume loop reveals hesitation during the forced expiratory flow volume loop. Lung volumes are consistent with air trapping. Gas exchange (DLCO) is normal. Will plan for Dc Tomorrow if continues to improve Attestations Medical Necessity Statement*: steady improvement post lobectomy - will plan to dc in 1-2 days Time Spent in Patient Care: Greater than 35 minutes (>than 50% of time spent in counselling and/or direct pt care on unit) . 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
--- NOTE | 2021-04-21 10:06 | ANE.PACU2 ---
Inpatient post-anesthesia follow up: Airway intact: Yes Vital signs: Temperature 97.9 F Pulse Rate 80 Respiratory Rate 18 Blood Pressure 163/88 Pulse Oximetry 95 Oxygen Delivery Me thod Room Air Oxygen Flow Rate 3 Fraction of Inspir ed Oxygen Hydration adequate: Yes Nausea and vomiting: No Pain level: 2 Mental status: Baseline Additional Comments: POD#5, up in chair, appears comfortable, epidural removed by surgeon yesterday, site C/D/I
--- NOTE | 2021-04-21 10:18 | PM.PN ---
Subjective Subjective: Interval history: Postop day #5 status post left upper lobectomy. Looks very good. Subcutaneous emphysema continues to dissipate. Lungs are clear. Incisions are clean and dry and intact. Normal bowel and bladder function. Tolerating diet well. He is eager for discharge. Pathology is still pending. Vitals/I&O/Wt Last Vital Signs Temp 97.9 F 04/21/21 07:34 Pulse 80 04/21/21 08:05 Resp 18 04/21/21 08:05 BP 163/88 04/21/21 07:34 Pulse Ox 95 04/21/21 08:05 04/20/21 04/21/21 04/21/21 22:59 06:59 14:59 Intake Total 1879 / 2119 300 / 2420 Output Total 100 / 100 Balance 1879 / 2119 200 / 2320 Weight last 48 hrs Weight 228 lb 8 oz Weight 228 lb 5 oz Physical Exam Chest: COMMONS NORMALS: normal inspection of the chest and normal palpation of entire chest wall OTHER: Surgical incisions are intact, clean and dry. Drain sites are well approximated. Resp: COMMON NORMALS: normal respiratory effort, No retractions, No use of accessory muscles and clear to auscultation bilaterally EFFORT & INSPECTION: Yes able to speak in complete sentences and Yes symmetric chest movement AUSCULTATION: clear to auscultation bilaterally Extremity: COMMON NORMALS: no clubbing, cyanosis or edema Urinary Catheter Management^: Pantoja Latex: Cath Placed During This Visit: yes Reason for Continuing Indwelling Catheter: Accurate Measurement of Urinary Output in Critically Ill Patients Urinary Catheter Date of Insertion: 04/16/21 Urinary Catheter Time of Insertion: 07:40 Data : 04/18/21 04:57 04/18/21 04:57 A&P Assessment and plan (1) Status post lobectomy of lung: Postop day #5 status post left upper lobectomy. Plan: Discharge home tomorrow after clearance by Dr. Lopez. Status: Acute Attestations Medical Necessity Statement*: POD #5 status post left upper lobectomy. Time Spent in Patient Care: 16 - 35 minutes Coding Level of Care Code Acute Medical Interpreter for Coco Fwdeanna Diagnoses Status post lobectomy of lung Z90.2
[2021-04-21] MEDS: pantoprazole DR 40 mg Tablet PO (10:26)
[2021-04-21] MEDS: citalopram 20 mg Tablet PO (10:26)
--- NOTE | 2021-04-21 12:09 | PC.SOCIAL ---
IMM Update Pg. 2 of IMM Updated and reviewed with patient, who verbalized understanding. Copy provided.
[2021-04-21] MEDS: chlorhexidine gluconate 4% Btl 118 mL 1 APPLIC TOPICAL (18:16)
[2021-04-22] VITALS: BP 112/69; PULSE 74; RESP 17; TEMP 37.1; O2SAT 95
[2021-04-22 04:00] VITALS: BP 149/84; PULSE 76; RESP 18; TEMP 36.6; O2SAT 96
[2021-04-22 06:35] VITALS: RESP 16
[2021-04-22] MEDS: oxyCODONE-APAP 5-325 mg Tablet 1 TAB PO (06:35)
[2021-04-22 07:57] VITALS: BP 125/72; PULSE 66; RESP 16; TEMP 36.5; O2SAT 96
[2021-04-22] MEDS: pantoprazole DR 40 mg Tablet PO (09:07)
[2021-04-22] MEDS: citalopram 20 mg Tablet PO (09:07)
[2021-04-22] MEDS: chlorhexidine gluconate 4% Btl 118 mL 1 APPLIC TOPICAL (09:18)
--- NOTE | 2021-04-22 09:28 | PM.DCS ---
Discharge Providers Date of Admission: 04/16/21 12:22 Date of Discharge: April 22, 2021 Attending Provider at Admission: Nikolai Noel MD Attending Provider at Discharge: Singh Lopez MD Primary Care Provider: Eliel Corley DO Diagnoses at Discharge Discharge Diagnosis (1) Status post lobectomy of lung: Status: Acute Reason for Visit Reason for Visit: left upper lobectomy Hospital Course Hospital Course Mr. Tabares is a very pleasant 70-year-old gentleman who had been referred to our service for a left upper lobe cavitary lesion and almost daily hemoptysis for 3 months. PET scan imaging revealed increased activity in this region as well as an hypermetabolic hilar lymph nodes. He is undergone prior navigational bronchoscopy by Dr. Lopez which was nondiagnostic and subsequent EBUS by Dr. Che which, unfortunately, was also nondiagnostic. Given his soft rather persistent hemoptysis, we felt that a formal resection of the left upper lobe would be indicated related to his ongoing bleeding. He was electively admitted on April 16 and underwent left upper lobectomy. Postoperatively, he convalesced in the ICU where he had minimal air leak and was doing quite well until late in the evening on the first postop night where apparently he had dislodgment of his chest tubes substantially while trying to transfer from the chair to the bed without assistance. This resulted in substantial subcutaneous emphysema and I subsequently placed a 13 [place] left thoracic vent and is subsequently a 28 [place] chest tube and removed his dislodged tube. Air leak resolved within 24hours though it did take about 3 days for his impressive subcutaneous emphysema to eventually dissipate. Chest x-ray, otherwise, has remained clear except for just a very small stable apical pneumothorax. Chest tubes have now been removed. He is tolerating a diet well. Normal bladder and bowel function. Epidural catheter has been removed. Postop thoracotomy discomfort under good control with oral medications. Pathology final report is pending though preliminary is consistent with malignancy. Remainder of his hospital stay has been uneventful. He will be discharged to home today with home health services in stable condition. Dr. Lopez assisted with his postop surveillance. Physical Exam Chest: COMMONS NORMALS: normal inspection of the chest and normal palpation of entire chest wall OTHER: Very minimal subcutaneous emphysema remains. Voice quality is normal. Chest wall is stable. Incision and drain sites are clean, dry, and well approximated. He will receive a Betasept shower today. Resp: COMMON NORMALS: normal respiratory effort, No retractions, No use of accessory muscles, clear to auscultation bilaterally and percussion normal EFFORT & INSPECTION: Yes able to speak in complete sentences and Yes symmetric chest movement AUSCULTATION: clear to auscultation bilaterally PERCUSSION: percussion normal Cardio: COMMON NORMALS: regular rate, S1 normal heart sound present, No murmurs present (Cardio) and No rub (Cardio) RATE: regular rate HEART SOUNDS: S1 normal heart sound present Extremity: COMMON NORMALS: no clubbing, cyanosis or edema Urinary Catheter Management^: Pantoja Latex: Cath Placed During This Visit: yes Reason for Continuing Indwelling Catheter: Accurate Measurement of Urinary Output in Critically Ill Patients Urinary Catheter Date of Insertion: 04/16/21 Urinary Catheter Time of Insertion: 07:40 Discharge Data Data Completed and Pending: Completed Studies During Hospitalization Category Date Time Status CXRP [XR chest 1V portable [id number]] N OW Exams 04/17/21 18:21 Completed CXRP [XR chest 1V portable [id number]] S tat Exams 04/18/21 00:20 Completed XR chest 1V francisco ble [id number] Routine Exams 04/16/21 10:45 Completed XR chest 1V francisco ble [id number] Routine Exams 04/17/21 06:00 Completed XR chest 1V francisco ble [id number] Routine Exams 04/18/21 06:00 Completed XR chest 1V francisco ble [id number] Routine Exams 04/19/21 06:00 Completed XR chest 1V francisco ble [id number] Routine Exams 04/20/21 06:00 Completed XR chest 1V francisco ble [id number] Routine Exams 04/21/21 06:00 Completed XR chest 1V francisco ble [id number] Stat Exams 04/17/21 21:52 Completed Pending at discharge Category Date Time Status Complete Blood Co unt w/Auto Routine Lab 04/21/21 07:48 Ordered Comprehensive Met abolic Panel Routi ne Lab 04/21/21 07:48 Ordered Leukocyte Reduced RBC Routine Lab 04/11/21 12:00 Results Magnesium Routine Lab 04/21/21 07:48 Ordered Procalcitonin Rou rex Lab 04/21/21 07:48 Ordered Type and Screen - Cardiac Routine Lab 04/11/21 12:00 Results Pathology: Surgic al [PTH] Routine Pth 04/16/21 11:40 Received Labs from last 24 hours 04/11/21 12:00 Crossmatch See Detail Vitals: Last Vital Signs Temp 97.7 F 04/22/21 07:57 Pulse 66 04/22/21 07:57 Resp 16 04/22/21 07:57 BP 125/72 04/22/21 07:57 Pulse Ox 96 04/22/21 07:57 Discharge Plan Discharge Patient Disposition: Home Health Service Condition: Stable Prescriptions: New hydrocodone-acetaminophen 5-325 mg tablet 1 tab PO Q8H PRN (Reason: pain) Qty: 20 RF: 0 Continued albuterol sulfate 90 mcg/actuation HFA aerosol inhaler 2 puff inhalation Q6H PRN (Reason: shortness of breath or wheezing) Qty: 8.5 RF: 3 citalopram 20 mg tablet 20 mg PO DAILY RF: 0 simvastatin 40 mg tablet 40 mg PO DAILY RF: 0 Discharge Orders: Discharge Order (Routine); Ordered 04/22/21 Ordered By: Nikolai Noel Referrals: Nikolai Noel MD [Physician] - 2 weeks Discharge Diet: Usual diet Discharge Activity: Limit activity as instructed Patient Instructions: Hydrocodone/Acetaminophen (By mouth) (Vicodin, Desmet, Lortab), Lung Lobectomy (DC), Opioid Safety Activity Restrictions/Additional Instructions: No heavy lifting x2 weeks No swimming or tub baths x2 weeks Use incentive spirometer frequently Report fever, chills, increasing shortness of breath, increasing pain at incision sites, increasing redness or drainage from incisions. May shower after discharge, drying incisions completely afterwards and then recover if desired. Discharge Attestations Time Spent in Discharge Care*: less than 30 min Specific Discharge Activities: educating patient, educating and/or supporting family/caregiver, discussing with pcp/other providers, discussing with director of casework department/social workers/dc planners, documenting/other paperwork and evaluating patient/reviewing data Status at Discharge: Cognitive status at discharge: cognitively intact, Behavioral status at discharge: cooperative, Functional status at discharge: independent ambulation Overall status at discharge: patient is back to baseline Quality Metrics Clinical Quality Measures During this hospital stay, did patient experience: None Coding Level of Care Code Acute Chg FW DC note Diagnoses Status post lobectomy of lung Z90.2
--- NOTE | 2021-04-22 09:52 | PC.CHAP ---
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 visit [] Patient/Family/Request visit [] Outpatient visit [] Follow-up visit [] Physician referral [] Code/Alert [ x] Routine visit [] Staff referral [] Actively dying [] Patient sleeping [] Family support [] [] Out of room [] Palliative care [] [] Receiving care in room [] Pre-surgical visit [] Trauma [] Long length of stay [] ICU visit [] Other: Relational/Emotional Strength x[] Patient feels connected with others/family/visitors/staff [] Distress [] Loneliness/isolation [] Abandonment Spirituality of Patient [x] Person of Belinda [] Attends Yarsanism of their Belinda [x] Believes in Prayer [] Reads Bible or Yarsanism materials [] There are Spiritual issues to be addressed Log Sorter Interventions [x] Prayer [x] Active listening [] Non-anxious presence [] Spiritual/emotional support [] Crisis/trauma care [] Spiritual counseling [] Bereavement support [] Provided bereavement packet [] Provided Bible/devotional materials [] Provided toy/stuffed animal, coloring book to patient or family member [] Provided Communion [] Anointing/Clarita [] Salvation [] Completed spiritual assessment [] Other: Impact on Illness or Injury [] Angry [] Fearful [] Anxious [] Often cries [] Exhaustion [] Unable to work [] Unable to attend zoroastrian [] Unable to walk/stand [] Unable to read [] Unable to drive [] Unable to eat/drink [] Unable to sleep [] Unable to be with family [] Patient intubated [] Other: Summary min Time spent with patient 10
[2021-04-22 10:42] VITALS: BP 125/72; PULSE 66; RESP 16; TEMP 36.5; O2SAT 96
[2021-05-09 13:20] LABS: PD-L1 (Clone 22C3) by IHC BBPL See Report
== END 2021-04-22 10:43 | disposition home health service (06) | DRG 164 ==
LOC: ICU 12:23 → MEDSURG 04-19 20:04
PROVIDERS: Admitting Provider Thoracic Surgery (Cardiothoracic Vascular Surgery); PCP Emergency Medicine Emergency Medical Services; Visit Provider Internal Medicine Pulmonary Disease
PROC: 0BTG0ZZ Resection of Left Upper Lung Lobe, Open Approach (ICD-10-PCS; CPT 32480; principal; 2021-04-16 07:00)
PROC: 0BJ08ZZ Inspection of Tracheobronchial Tree, Via Natural or Artificial Opening Endoscopic (ICD-10-PCS; CPT 31622; 2021-04-16 07:00)
DX: C34.12 Malignant neoplasm of upper lobe, left bronchus or lung (principal); T85.628A Displacement of other specified internal prosthetic devices, implants and grafts, initial encounter; E78.00 Pure hypercholesterolemia, unspecified; F17.290 Nicotine dependence, other tobacco product, uncomplicated; F17.220 Nicotine dependence, chewing tobacco, uncomplicated; Z85.828 Personal history of other malignant neoplasm of skin; T81.82XA Emphysema (subcutaneous) resulting from a procedure, initial encounter; Y81.8 Miscellaneous general- and plastic-surgery devices associated with adverse incidents, not elsewhere classified; Y81.3 Surgical instruments, materials and general- and plastic-surgery devices (including sutures) associated with adverse incidents; Z79.51 Long term (current) use of inhaled steroids; G47.33 Obstructive sleep apnea (adult) (pediatric)
CPT/HCPCS: 01996; 36415; 51702; 71045; 80048; 80202; 81003; 85025; 85610; 86850; 86900; 86920; 88305; 88307; 88309; 88342; 94664; J1170; J1644; J1885; J1940; J2060; J2175; J2250; J2270; J2370; J2405; J2704; J2710; J2795; J3010; J3370; J3490; J7030

== ENCOUNTER 2021-05-14 13:21 | Outpatient (CLI) | payer OTHER, SELFPAY ==
--- NOTE | 2021-05-14 20:02 | ONC CON_ITS ---
Dr. Bill New Patient Note Patient: Navneet Tabares Unit #: [id number]: 1950 Dicatated By: Mazin Bill M.D.Date of Visit: May 14, 2021 Onc MED New Patient/Consult Referring Physician: Singh Lopez Chief Complaint: Lung cancer. 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 He is a former smoker with a history of hyperlipidemia, COPD, obstructive sleep apnea, and chronic anxiety. He had presented with hemoptysis, which started in January of this year. His chest CT on 02/22/2021 showed a left upper lobe mass measuring 3.9 x 3.6 cm and extending over a length of 2.5 cm. It contained a tiny central cavitation. There was no associated mediastinal or hilar adenopathy. There was evidence of a relatively large lipoma in the left anterior chest wall which measured 7.2 x 4.4 cm. The upper abdomen appeared unremarkable. PET/CT on 03/09/2021 showed a 1.8 cm region of intense abnormal uptake in the left upper lobe with SUV 15.1, indicating high probability of malignancy. And adjacent infiltrate was FDG negative. A superior left hilar lymph node with SUV 6.0 and a subaortic node with SUV 3.9 were felt to be consistent with local metastatic disease. There were no other areas of abnormal uptake. On 03/19/2021 he underwent bronchoscopy/EBUS. There was noted to be evidence of prior bleeding along the left mainstem bronchus and left upper lobe, but there was no endobronchial lesion identified. Transbronchial biopsies were obtained from the left upper lobe. Pathology showed a small cluster of atypical cells. Repeat bronchoscopy on 04/09/2021 again showed no evidence of endobronchial lesion. The EBUS showed no lymphadenopathy. FNA biopsy of station 10 L lymph node showed benign pathology. He was then referred to Dr. Noel and on 04/16/2021 he underwent left posterior lateral thoracotomy with left upper lobectomy. Pathology showed grade 3 non-small cell carcinoma which included 15% spindle cell carcinoma, 45% adenocarcinoma, 20% squamous cell carcinoma, and 20% large cell carcinoma. The tumor measured 3.9 x 3.4 x 2.7 cm. All the margins were negative. There was no visceral pleural invasion. There was no evidence for lymphovascular invasion. 1 hilar lymph node was uninvolved in 4 regional lymph nodes were uninvolved. Pathologic staging was pT2a. pN0. His additional pathologic analysis included PD-L1 expression, which was positive with TPS > 50%. 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 He has been feeling pretty good generally, though he says he is lazy, and he still has limited activity following the surgery. His ECOG score is 2. He has good appetite. He has no fever or night sweats. He says his voice has been slightly raspy. He still has some cough and is bringing up a little bit of sputum. He has had no further hemoptysis. He has some shortness of breath with activity. He does not complain of chest pain. He has no GI or complaints. He has no significant joint or bone pain. He does not complain of headache. He occasionally has dizziness. He has had some right facial numbness since last week. He has no other focal neurologic symptoms. Past Medical History: His medical history includes chronic anxiety, chronic obstructive pulmonary disease, history of non melanoma skin cancer, hypercholesterolemia, obstructive sleep apnea, and COVID-19 virus infection in July 2020. Past Surgical History: He underwent bronchoscopy/EBUS on 03/19/2021 and on 04/09/2021, and he underwent left posterior lateral thoracotomy with left upper lobectomy on 04/16/2021. His only other surgery was a procedure on the left wrist for traumatic injury. Medications: Citalopram Hydrobromide 1 Tablet (of 40 mg) Oral daily, Daily Vitamin 1 Tablet Oral daily, Simvastatin 1 Tablet (of 80 mg) Oral daily Allergies: Penicillins Social History: Mr. Tabares is . 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 He is retired. He smoked a lot in the past. He mostly rolled his own . He started at an early age and quit 8 to 10 years ago. He then chewed tobacco but quit that 4 or 5 years ago. In the past he had daily alcohol use, but he quit drinking approximately 2012. Family History: Father at 92 of old age. Mother at age 88 with a metastatic malignancy. A brother in a motor vehicle accident at age 17. A half-sister also with cancer. Review Of Symptoms: Constitutional - He had noted decline in his energy even before the surgery. At this point is activity remains restricted. He says he is lazy. He has good appetite. His weight has been stable. He has no fever or night sweats. ECOG score is 2, Eyes - No change in vision, ENMT - No hearing loss or tinnitus. He has some sinus congestion and he also complains that his voice is slightly raspy. He has no difficulty swallowing, Hematologic/Lymphatic - He bruises and bleeds easily, Respiratory - He has some shortness of breath with activity. He continues to have some cough. He brings up just a little bit of sputum. He has had no further hemoptysis, Cardiovascular - No angina pain. No palpitations, Gastrointestinal - No nausea or vomiting. He has occasional acid reflux, depending on what he eats. No diarrhea or constipation. No blood in the stool or black stools, Genitourinary (M) - No dysuria or hematuria. No urinary frequency. No urgency or incontinence, Musculoskeletal - No significant joint or bone pain, Integumentary - No skin rash or other skin changes, Neurologic - No headache. He occasionally has dizziness. He has had some right facial numbness which started last week. No other focal neurologic symptoms, Psychiatric - He has anxiety, managed with citalopram. He does not sleep well at night. He is on CPAP. Vital Signs: Performed on May 14, 2021 14:42: 5, 0, 33.30 (HIGH), 2.08 sq.m, 67 in, 97 %, 71 /min, 16 /min, 118/82 mm(hg), 97.4 F (LOW), and 212.6 lbs (HIGH). Physical Examination: Constitutional - He looks pretty good generally, Eyes - Sclerae nonicteric. Conjunctivae clear, ENMT - No lesions noted in the oral cavity, Neck - No mass or thyromegaly, Hematologic/Lymphatic - No cervical, clavicular, or axillary adenopathy, Respiratory - Lungs sound clear with slightly diminished air movement bilaterally, Cardiovascular - Heart rhythm is regular. There is no murmur, gallop, or rub noted, Abdomen - Soft. Liver and spleen are not enlarged. There is no abdominal mass or ascites noted and there is no inguinal adenopathy, Back/Spine - His thoracotomy incision appears well-healed. There is no bony tenderness in the spine or ribs, Extremities - No edema. Pedal pulses are palpable bilaterally, Integumentary - No rashes. No suspicious skin lesions noted, Neurologic - No focal neurologic deficits noted. Problem List: 1. Grade 3 non-small cell carcinoma involving the upper lobe of the left lung, stage IB (T2a, N0, M0). His tumor showed positive PD-L1 expression, TPS > 50%. The tumor was found to harbor a MET mutation in exon 14 by next generation sequencing. 2. Hyperlipidemia. 3. COPD. 4. Obstructive sleep apnea. 5. Chronic anxiety. Problems Addressed with this Encounter and Plan: Patient with grade 3 non-small cell carcinoma involving the upper lobe of the left lung, stage IB (T2a, N0, M0). He underwent left posterior lateral thoracotomy with left upper lobectomy on 04/16/2021. The primary tumor was composed of 15% spindle cell carcinoma, 45% adenocarcinoma, 20% squamous cell carcinoma, and 20% large cell carcinoma. The margins were uninvolved. The tumor showed positive PD-L1 expression, TPS > 50%, and it was found to harbor a MET mutation in exon 14 by next generation sequencing. The pathology findings were reviewed with the patient and his . With his tumor being stage IB and completely resected and with no evidence for an EGFR mutation, there is no indication for adjuvant therapy. As such, he will be followed on expectant management. This will include follow-up visits and surveillance CT scans every 3 months for the first year. Signed By: Mazin Bill M.D. <<Signature on File>>
== END 2021-05-14 13:22 | disposition home or self-care (01) ==
PROVIDERS: PCP Emergency Medicine Emergency Medical Services; Visit Provider Internal Medicine Medical Oncology
DX: C34.12 Malignant neoplasm of upper lobe, left bronchus or lung (principal); E78.5 Hyperlipidemia, unspecified; J44.9 Chronic obstructive pulmonary disease, unspecified; G47.33 Obstructive sleep apnea (adult) (pediatric); F41.9 Anxiety disorder, unspecified; Z79.899 Other long term (current) drug therapy
CPT/HCPCS: 99204

== ENCOUNTER 2021-08-20 07:46 | Outpatient (CLI) | payer OTHER, SELFPAY ==
[2021-08-20 08:34] LABS: Basophils % 0.4 %; Eosinophils # 0.2 10^3/uL (0.0-0.8); Eosinophils % 1.9 %; Hematocrit 44.1 % (42.0-52.0); Hemoglobin 14.5 g/dL (11.7-16.6); Lymphocytes # 3.6 10^3/uL (0.8-4.8); Lymphocytes % 36.9 %; Mean Corpuscular HGB Conc 32.9 g/dL (30.0-36.0); Mean Corpuscular Hemoglobin 29.8 pg (28.0-34.0); Mean Corpuscular Volume 90.7 fl (80-94); Mean Platelet Volume 11.3 fL (7.4-10.4); Monocytes # 0.8 10^3/uL (0.2-0.9); Monocytes % 8.3 %; Neutrophils # 5.12 10^3/uL (1.8-7.7); Neutrophils % 52.2 %; Nucleated Red Blood Cells % 0 %; Platelet Count 270 10^3/cmm (130-400); Red Blood Count 4.86 10^6/uL (4.1-5.3); Red Cell Distribution Width 12.9 % (12.1-15.1); White Blood Count 9.8 10^3/uL (4.0-10.0)
--- NOTE | 2021-08-20 08:35 | CT_ITS ---
WS: [id number] CT CHEST WITH INTRAVENOUS CONTRAST HISTORY: LUNG CANCER TECHNIQUE: Contiguous 5 mm axial imaging performed on the thorax. Coronal and sagittal reformats are submitted. All CT scans at [facility] use at least one of these dose optimization techniques: automated exposure control; mA and/or kV adjustment per patient size (includes targeted exams where dose is matched to clinical indication); or iterative reconstruction. CONTRAST: Omnipaque 300; 95 mL IV. DLP: 760.35 mGy.cm COMPARISON: 02/22/2021 Lungs and central airway: Lungs are hyperinflated. Since the prior examination patient has undergone LEFT upper lobectomy. There is now mild volume loss in the LEFT thorax with elevation of the LEFT hem idiaphragm. No new mass or nodule identified. There are a few very minimal areas of groundglass atten uation which are very nonspecific. Pleura: There is a very small layering LEFT pleural effusion Heart and pericardium: Normal size heart. No effusion. Mediastinum and nikita: No mediastinal or hilar adenopathy. There is a small amount of fluid in the per icardial recess anteriorly. Surgical sutures at the LEFT hilum with no significant adenopathy at the surgical site. Vessels: Mild atherosclerosis of the thoracic aorta with no aneurysm. Bovine arch. Normal size pulmon sylvain artery. There is a linear artifact through the proximal LEFT main pulmonary artery. Chest wall and lower neck: Again noted is a fat-containing mass in the anterior LEFT chest wall with calcification consistent with a lipoma. Upper abdomen: No adrenal mass. Visualized liver is normal. Osseous structures: No destructive process. CT/CT chest w con* [id number] IMPRESSION: 1. Status post LEFT upper lobectomy. 2. No recurrent mass or adenopathy. 3. Small layering LEFT pleural effusion. 4. No adrenal mass.
[2021-08-20 08:53] LABS: Alanine Aminotransferase 16 U/L (0-41); Albumin Level 4.1 g/dL (3.5-5.2); Alkaline Phosphatase 56 IU/L (40-130); Anion Gap 14.2 (5-19); Aspartate Amino Transferase 18 U/L (0-40); Blood Urea Nitrogen 14 mg/dL (8-23); Calcium 9.1 mg/dL (8.5-10.5); Carbon Dioxide 25 mmol/L (22-29); Chloride 106 mmol/L (98-107); Glomerular Filtration Rate 95.8 mL/min (90-130); Glucose 95 mg/dL (65-115); Osmolality Calculated 292 mOsm/kg (285-295); Potassium 4.2 mmol/L (3.5-5.1); Sodium 141 mmol/L (136-145); Total Bilirubin 0.2 mg/dL (0.15-1.2); Total Protein 7.1 g/dL (6.6-8.7)
[2021-08-20] MEDS: iohexol 300 mg/mL 100 mL Btl IV (09:09)
== END 2021-08-20 07:47 | disposition home or self-care (01) ==
LOC: RAD 07:47 → ONCMED 07:49
PROVIDERS: PCP Emergency Medicine Emergency Medical Services; Visit Provider Internal Medicine Medical Oncology
DX: C34.12 Malignant neoplasm of upper lobe, left bronchus or lung (principal); J44.9 Chronic obstructive pulmonary disease, unspecified; E78.5 Hyperlipidemia, unspecified; G47.33 Obstructive sleep apnea (adult) (pediatric); F41.9 Anxiety disorder, unspecified; Z79.899 Other long term (current) drug therapy; Z87.891 Personal history of nicotine dependence
CPT/HCPCS: 36415; 71260; 80053; 85025; Q9967

== ENCOUNTER 2021-08-21 09:10 | Outpatient (CLI) | payer OTHER, SELFPAY ==
--- NOTE | 2021-08-25 10:03 | ONC FU_ITS ---
Dr. Bill Patient Follow-Up Note Patient: Navneet Tabares Unit #: [id number]: 1950 Dicatated By: Mazin Bill M.D.Date of Visit:Aug 21, 2021 Onc Med Follow-up/Prog Note Chief Complaint: Lung cancer. 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 He is a former smoker with a history of hyperlipidemia, COPD, obstructive sleep apnea, and chronic anxiety. He had presented with hemoptysis, which started in January of this year. His chest CT on 02/22/2021 showed a left upper lobe mass measuring 3.9 x 3.6 cm and extending over a length of 2.5 cm. It contained a tiny central cavitation. There was no associated mediastinal or hilar adenopathy. There was evidence of a relatively large lipoma in the left anterior chest wall which measured 7.2 x 4.4 cm. The upper abdomen appeared unremarkable. PET/CT on 03/09/2021 showed a 1.8 cm region of intense abnormal uptake in the left upper lobe with SUV 15.1, indicating high probability of malignancy. And adjacent infiltrate was FDG negative. A superior left hilar lymph node with SUV 6.0 and a subaortic node with SUV 3.9 were felt to be consistent with local metastatic disease. There were no other areas of abnormal uptake. On 03/19/2021 he underwent bronchoscopy/EBUS. There was noted to be evidence of prior bleeding along the left mainstem bronchus and left upper lobe, but there was no endobronchial lesion identified. Transbronchial biopsies were obtained from the left upper lobe. Pathology showed a small cluster of atypical cells. Repeat bronchoscopy on 04/09/2021 again showed no evidence of endobronchial lesion. The EBUS showed no lymphadenopathy. FNA biopsy of station 10 L lymph node showed benign pathology. He was then referred to Dr. Noel and on 04/16/2021 he underwent left posterior lateral thoracotomy with left upper lobectomy. Pathology showed grade 3 non-small cell carcinoma which included 15% spindle cell carcinoma, 45% adenocarcinoma, 20% squamous cell carcinoma, and 20% large cell carcinoma. The tumor measured 3.9 x 3.4 x 2.7 cm. All the margins were negative. There was no visceral pleural invasion. There was no evidence for lymphovascular invasion. 1 hilar lymph node was uninvolved in 4 regional lymph nodes were uninvolved. Pathologic staging was pT2a. pN0. His additional pathologic analysis included PD-L1 expression, which was positive with TPS > 50%. 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 I had seen him initially on 05/14/2021. Given the pathology findings, there appeared to be no indication for adjuvant therapy, and expectant management was recommended. His other medical illnesses include hyperlipidemia, COPD, obstructive sleep apnea, and chronic anxiety. He has a long history of smoking, beginning at an early age. He quit smoking about 10 years ago, but then chewed tobacco for an additional 4 to 5 years. INTERIM HISTORY: Surveillance chest CT on 08/20/2021 showed findings of left upper lobectomy with no evidence of recurrent mass or adenopathy. There was residual small left pleural effusion. He is seen for a follow-up visit. He has been feeling pretty good generally, though his activity is still somewhat limited. ECOG score is 1. He has good appetite. He does not have fever or night sweats. Recently has had some sinus drainage and he has had some cough associated with it. He is having some shortness of breath with activity. He does not complain of chest pain. He has occasional postprandial nausea. He has no other GI complaints. He says his bladder function could be better, mainly due to weak stream. He has some joint pain, mainly in the hands. He does not complain of headache or dizziness, and he has no focal neurologic symptoms. Medications: Aspirin 1 Tablet (of 81 mg) Tablet, chewable Oral daily, Citalopram Hydrobromide 1 Tablet (of 40 mg) Oral daily, Daily Vitamin 1 Tablet Oral daily, Simvastatin 1 Tablet (of 80 mg) Oral daily Allergies: Penicillins Vital Signs: Performed on Aug 21, 2021 09:25 Height - 67.00 in Weight - 215.4 lbs (HIGH) BSA - 2.09 sq.m BMI - 33.74 (HIGH) Temperature - 98.1 F (LOW) Pulse - 75 /min Respiration - 16 /min BP - 151/84 mm(hg) (HIGH) O2 Sat - 95 % (LOW) Pain - 0 Fatigue - 6 Physical Examination: Constitutional - He looks pretty good generally, Eyes - Sclerae nonicteric. Conjunctivae clear, ENMT - No lesions noted in the oral cavity, Hematologic/Lymphatic - No cervical, clavicular, or axillary adenopathy, Respiratory - Lungs sound clear with slightly diminished air movement bilaterally, Cardiovascular - Heart rhythm is regular. There is no murmur, gallop, or rub noted, Chest - There is a soft mass in the upper left chest wall, consistent with lipoma, Abdomen - Soft. Liver and spleen are not enlarged. There is no abdominal mass or ascites noted and there is no inguinal adenopathy, Extremities - No edema, Neurologic - No focal neurologic deficits noted. Lab/Imaging: Test performed on Aug 20, 2021 08:19 Sodium 141 mmol/L Potassium 4.2 mmol/L Chloride 106 mmol/L CO2 25 mmol/L Anion Gap 14.2 BUN 14 mg/dL Creatinine 0.8 mg/dL Cr Clearance (Est) 120.44 mL/min eGFR 95.8 mL/min Glucose 95 mg/dL Osmolality - Calculated 292 mOsm/kg Calcium 9.1 mg/dL Protein, Total 7.1 g/dL Albumin 4.1 g/dL Globulin 3.0 g/dL Bilirubin, Total 0.2 mg/dL ALT (SGPT) 16 U/L AST (SGOT) 18 U/L Alkaline Phosphatase 56 IU/L WBC 9.8 10 3/uL RBC 4.86 10 6/uL HGB 14.5 g/dL HCT 44.1 % MCV 90.7 fl MCH 29.8 pg MCHC 32.9 g/dL RDW 12.9 % Platelet Count 270 10 3/cmm MPV 11.3 fL Neutrophils 5.12 10 3/uL Lymphocytes 3.6 10 3/uL Monocytes 0.8 10 3/uL Eosinophils 0.2 10 3/uL Basophils 0.0 10 3/uL Neutrophil % 52.2 % Lymphocyte % 36.9 % Monocyte % 8.3 % Eosinophil % 1.9 % Basophils % 0.4 % NRBC % 0 % Problem List: 1. Grade 3 non-small cell carcinoma involving the upper lobe of the left lung, stage IB (T2a, N0, M0). His tumor showed positive PD-L1 expression, TPS > 50%. The tumor was found to harbor a MET mutation in exon 14 by next generation sequencing. 2. Hyperlipidemia. 3. COPD. 4. Obstructive sleep apnea. 5. Chronic anxiety. Problems Addressed with this Encounter and Plan: Patient with grade 3 non-small cell carcinoma involving the upper lobe of the left lung, stage IB (T2a, N0, M0). He underwent left posterior lateral thoracotomy with left upper lobectomy on 04/16/2021. The primary tumor was composed of 15% spindle cell carcinoma, 45% adenocarcinoma, 20% squamous cell carcinoma, and 20% large cell carcinoma. The margins were uninvolved. The tumor showed positive PD-L1 expression, TPS > 50%, and it was found to harbor a MET mutation in exon 14 by next generation sequencing. With his tumor being stage IB and completely resected and with no evidence for an EGFR mutation, there appeared to be no indication for adjuvant therapy and expectant management was recommended. Thus far during follow-up he has been doing well clinically with no evidence of recurrence of the lung cancer. He continues on observation/expectant management. I will see him again in 3 months. Signed By: Mazin Bill M.D. <<Signature on File>>
== END 2021-08-21 09:11 | disposition home or self-care (01) ==
PROVIDERS: PCP Emergency Medicine Emergency Medical Services; Visit Provider Internal Medicine Medical Oncology
DX: Z85.118 Personal history of other malignant neoplasm of bronchus and lung (principal); J44.9 Chronic obstructive pulmonary disease, unspecified; E78.5 Hyperlipidemia, unspecified; G47.33 Obstructive sleep apnea (adult) (pediatric); F41.9 Anxiety disorder, unspecified; Z79.899 Other long term (current) drug therapy
CPT/HCPCS: G0463

== ENCOUNTER → 2022-01-03 10:20 | Outpatient (BNVA) | payer OTHER, SELFPAY | PROVIDERS: PCP Emergency Medicine Emergency Medical Services; Visit Provider Surgery | DX: Z12.11 Encounter for screening for malignant neoplasm of colon (principal) | CPT/HCPCS: 99203 ==

== ENCOUNTER 2022-01-27 13:18 | Outpatient (CLI) | payer OTHER, SELFPAY ==
[2022-01-27 13:44] LABS: Basophils % 0.3 %; Eosinophils # 0.1 10^3/uL (0.0-0.8); Eosinophils % 1.1 %; Hematocrit 43.7 % (42.0-52.0); Hemoglobin 14.4 g/dL (11.7-16.6); Lymphocytes # 1.8 10^3/uL (0.8-4.8); Lymphocytes % 25.6 %; Mean Corpuscular Hemoglobin 30.4 pg (28.0-34.0); Mean Corpuscular Volume 92.4 fl (80-94); Monocytes # 0.6 10^3/uL (0.2-0.9); Neutrophils # 4.51 10^3/uL (1.8-7.7); Neutrophils % 63.7 %; Nucleated Red Blood Cells % 0 %; Platelet Count 229 10^3/cmm (130-400); Red Blood Count 4.73 10^6/uL (4.1-5.3); White Blood Count 7.1 10^3/uL (4.0-10.0)
[2022-01-27 14:05] LABS: Alanine Aminotransferase 19 U/L (0-41); Albumin Level 4.2 g/dL (3.5-5.2); Alkaline Phosphatase 59 U/L (40-130); Anion Gap 14.1 (5-19); Aspartate Amino Transferase 16 U/L (0-40); Blood Urea Nitrogen 12 mg/dL (8-23); Calcium 8.9 mg/dL (8.5-10.5); Carbon Dioxide 28 mmol/L (22-29); Chloride 105 mmol/L (98-107); Globulin 2.4 g/dL (1.3-4.6); Glomerular Filtration Rate 111.8 mL/min (90-130); Glucose 92 mg/dL (65-115); Osmolality Calculated 295 mOsm/kg (285-295); Potassium 4.1 mmol/L (3.5-5.1); Sodium 143 mmol/L (136-145); Total Bilirubin 0.5 mg/dL (0.15-1.2); Total Protein 6.6 g/dL (6.6-8.7)
== END 2022-01-27 13:19 | disposition home or self-care (01) ==
LOC: LAB 13:20
PROVIDERS: PCP Emergency Medicine Emergency Medical Services; Visit Provider Nurse Practitioner
DX: C34.12 Malignant neoplasm of upper lobe, left bronchus or lung (principal)
CPT/HCPCS: 36415; 80053; 85025

== ENCOUNTER 2022-01-27 13:30 | Oncology outpatient (recurring) (ONCR) | payer OTHER, SELFPAY ==
--- NOTE | 2022-01-16 14:09 | CT_ITS ---
WS: [id number] CT CHEST TECHNIQUE: Contrast enhanced CT of the chest with coronal and sagittal reformatted images. CLINICAL INFORMATION: LUNG CANCER COMPARISON: CT August 20, 2021 DLP: 821.[address] scans at [facility] use at least one of these dose optimization techniques: automated e xposure control; mA and/or kV adjustment per patient size (includes targeted exams where dose is matc hed to clinical indication); or iterative reconstruction. FINDINGS: Prior postoperative changes LEFT upper lobectomy. Volume loss LEFT hemithorax with elevation LEFT hem idiaphragm similar to previous. No mediastinal or hilar lymphadenopathy. Postoperative changes LEFT h ilum. Mild aortic calcification. Coronary calcification. Normal caliber thoracic aorta. Bovine arch. Stable lipoma in the anterior LEFT chest wall with calcification. Tiny LEFT pleural effusion has nearly res olved. Adrenal glands are normal. Normal GE junction. Small amount of fluid in the pericardial recess anteri andreea unchanged. CT/CT chest w con* [id number] IMPRESSION: 1. No significant interval changes compared to previous. 2. Prior postoperative changes LEFT upper lobectomy. No evidence of recurrent mass or lymphadenopathy. 3. Tiny LEFT pleural effusion has nearly resolved. 4. No other remarkable changes.
[2022-01-16 14:36] LABS: Blood Urea Nitrogen 14 mg/dL (8-23); Glomerular Filtration Rate 95.8 mL/min (90-130)
[2022-01-16] MEDS: iohexol 350 mg/mL 100 mL Btl IV (14:39)
== END 2022-01-29 23:59 | disposition home or self-care (01) ==
LOC: RAD 14:45 → ONCMED 14:45
PROVIDERS: PCP Emergency Medicine Emergency Medical Services; Visit Provider Internal Medicine Medical Oncology
DX: Z08 Encounter for follow-up examination after completed treatment for malignant neoplasm (principal); Z85.118 Personal history of other malignant neoplasm of bronchus and lung; Z90.2 Acquired absence of lung [part of]; R42 Dizziness and giddiness; Z87.891 Personal history of nicotine dependence
CPT/HCPCS: 71260; 82565; 84520; 99214

== ENCOUNTER → 2022-03-12 08:55 | Outpatient (BNVA) | payer OTHER, SELFPAY | PROVIDERS: PCP Emergency Medicine Emergency Medical Services; Visit Provider Otolaryngology | DX: R42 Dizziness and giddiness (principal); R20.0 Anesthesia of skin; Z87.891 Personal history of nicotine dependence; Z85.118 Personal history of other malignant neoplasm of bronchus and lung | CPT/HCPCS: 99203; 99204 ==

== ENCOUNTER 2022-03-26 06:45 | Day surgery (SDC) | payer OTHER, SELFPAY ==
[2022-03-24 08:45] VITALS: BMI 32.8
[2022-03-26 07:09] VITALS: BP 146/89; PULSE 82; RESP 18; TEMP 36.1; O2SAT 96
[2022-03-26] MEDS: sodium chloride 0.9% 1,000 ML 30 ML IV (07:28)
--- NOTE | 2022-03-26 08:29 | ANES.PREANE2 ---
Pre-Anesthetic Assessment Height/Weight: Height 1.7 m Weight 95.254 kg Temp Pulse Resp BP Pulse Ox O2 Del Method 97.0 F L 82 18 146/89 96 03/26/22 07:09 03/26/22 07:09 03/26/22 07:09 03/26/22 07:09 03/26/22 07:09 03/26/22 07:09 Preop Diagnosis: Left upper lobectomy/dislodged chest tube with subcutaneous emphysema Operation Date: 03/26/22 08:30 Proposed Procedures p Colonoscopy 91408,Z12.11(Not Applicable) - Virgil Lemos DO Familial anesthetic complications: none Was Beta Jannet taken within 24 hours: N/A Was Clonidine taken within 24 hours: N/A Last intake: Intake Last Liquid Date 03/25/22 Last Liquid Time 23:00 Last Solid Date 03/24/22 Last Solid Time 20:00 Social Tobacco (h/o smoking) and No alcohol Exam alert, oriented x 3, clear to auscultation bilaterally and regular rate & rhythm Airway Submandibular: within normal limits Cervical ROM: within normal limits Mallampati: Class II Dentition: false Pulmonary Chronic Obstructive Pulmonary Disease and Sleep Apnea Metabolic Hyperlipidemia Neuropsych Anxiety Anesthetic Plan ASA status: 3 Anesthesia: MAC Medications/Allergies Home Medications Medication Instructions Recorded Confirmed Last Taken Type citalopram 20 mg tablet 20 mg PO DAILY 06/12/20 03/26/22 03/24/22 History simvastatin 40 mg tablet 40 mg PO DAILY 06/12/20 03/26/22 03/24/22 History Multi Vitamin 1 tab PO DAILY 03/26/22 03/26/22 03/24/22 History Allergies Allergy/AdvReac Type Severity Reaction Status Date / Time Penicillins Allergy childhood Verified 03/26/22 07:06 reaction/unknown Current Medications Generic Name Dose Route Start Last Admin Trade Name Freq PRN Reason Stop Dose Admin Sodium Chloride 1,000 mls @ 30 mls/hr 03/26/22 07:00 03/26/22 07:28 Sodium Chloride 0.9% IV 03/27/22 06:59 30 mls/hr .Q24H [place] Administration PFSH Anesthesia Medical History 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 Hypercholesteremia Left pulmonary lesion Malignant neoplasm of upper lobe, left bronchus or lung Pulmonary cavitary lesion Surgical History History of esophagogastroduodenoscopy (EGD) Hx of colonoscopy Status post lobectomy of lung Family History Other CAD (coronary artery disease) Cancer Denies family history of Diabetes Stroke Social History Smoking and tobacco status: former smoker (smoked x 40+ years) Quit status (tobacco): has quit using tobacco Year quit tobacco: 2010 Former quit date comment: 1.5ppd x 50 years Alcohol intake: former History of recent travel: No Data Anesthesia Cardiac Studies: No Data to Display
--- NOTE | 2022-03-26 08:53 | P.HP_ITS ---
Providers/Chief Complaint Primary Care Provider: Eliel Corley DO Chief Complaint: ENCOUNTER FOR SCREENING FOR MALIGNANT NEOPLASM History of Present Illness Navneet Tabares is a 71 year old male here for colonoscopy Medications/Allergies Home Medications Medication Instructions Recorded Confirmed Last Taken Type citalopram 20 mg tablet 20 mg PO DAILY 06/12/20 03/26/22 03/24/22 History simvastatin 40 mg tablet 40 mg PO DAILY 06/12/20 03/26/22 03/24/22 History Multi Vitamin 1 tab PO DAILY 03/26/22 03/26/22 03/24/22 History Allergies Allergy/AdvReac Type Severity Reaction Status Date / Time Penicillins Allergy childhood Verified 03/26/22 07:06 reaction/unknown PFSH Acute PFSH: Medical History 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 Hypercholesteremia Left pulmonary lesion Malignant neoplasm of upper lobe, left bronchus or lung Pulmonary cavitary lesion Surgical History History of esophagogastroduodenoscopy (EGD) Hx of colonoscopy Status post lobectomy of lung Family History Other CAD (coronary artery disease) Cancer Denies family history of Diabetes Stroke Social History Smoking and tobacco status: former smoker (smoked x 40+ years) Quit status (tobacco): has quit using tobacco Year quit tobacco: 2010 Former quit date comment: 1.5ppd x 50 years Alcohol intake: former History of recent travel: No Vitals/I&O/Wt Last Vital Signs Temp 97.0 F L 03/26/22 07:09 Pulse 82 03/26/22 07:09 Resp 18 03/26/22 07:09 BP 146/89 03/26/22 07:09 Pulse Ox 96 03/26/22 07:09 O2 Del Method 03/26/22 07:09 A&P Assessment and plan (1) Colon cancer screening: Plan Anoscopy Attestations Medical Necessity Statement*: Home Coding Level of Care Code 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
[2022-03-26 09:19] VITALS: BP 138/83; PULSE 68; RESP 18; TEMP 36.2; O2SAT 97
[2022-03-26 09:28] VITALS: BP 129/74; PULSE 65; RESP 18; O2SAT 95
[2022-03-26 09:47] VITALS: BP 143/86; PULSE 64; RESP 18; O2SAT 97
--- NOTE | 2022-03-26 17:47 | ANE.PACU2 ---
Inpatient post-anesthesia follow up: Airway intact: Yes Vital signs: Temperature 97.1 F Pulse Rate 64 Respiratory Rate 18 Blood Pressure 143/86 Pulse Oximetry 97 Oxygen Delivery Me thod Room Air Oxygen Flow Rate Fraction of Inspir ed Oxygen Hydration adequate: Yes Nausea and vomiting: No Pain level: 1 Mental status: Baseline
== END 2022-03-26 09:55 | disposition home or self-care (01) ==
PROVIDERS: PCP Emergency Medicine Emergency Medical Services; Visit Provider Surgery
PROC: 0DJD8ZZ Inspection of Lower Intestinal Tract, Via Natural or Artificial Opening Endoscopic (ICD-10-PCS; CPT 45378; principal; 2022-03-26 08:30)
DX: Z12.11 Encounter for screening for malignant neoplasm of colon (principal); Z87.891 Personal history of nicotine dependence; J44.9 Chronic obstructive pulmonary disease, unspecified; G47.30 Sleep apnea, unspecified; E78.5 Hyperlipidemia, unspecified; F41.9 Anxiety disorder, unspecified; E78.00 Pure hypercholesterolemia, unspecified
CPT/HCPCS: 45378; J2704; J7030

== ENCOUNTER 2022-05-16 12:03 | Outpatient (CLI) | payer OTHER, SELFPAY ==
--- NOTE | 2022-05-16 12:00 | CTR_ITS ---
PROCEDURE INFORMATION: Exam: CT Chest With Contrast; Diagnostic Exam date and time: 05/16/2022 12:25 PM Age: 71 years old Clinical indication: Condition or disease; Lung condition and disease; Cancer of the lung; Left; Unspecified; Prior surgery; Surgery type: Lll; Additional info: Surveillance TECHNIQUE: Imaging protocol: Diagnostic computed tomography of the chest with contrast. Radiation optimization: All CT scans at this facility use at least one of these dose optimization techniques: automated exposure control; mA and/or kV adjustment per patient size (includes targeted exams where dose is matched to clinical indication); or iterative reconstruction. Contrast material: OMNI 350; Contrast volume: 95 ml; Contrast route: INTRAVENOUS (IV); COMPARISON: CT chest w con* [id number] 01/16/2022 2:36 PM RADIATION DOSE METRICS: Total DLP (mGy-cm): 715.56 FINDINGS: Lungs: Previous left upper lobe/lingular resection. Left lower lobe calcified pulmonary parenchymal granuloma. Right middle lobe medial segment subsegmental atelectasis. Central left lower lobe basilar segment origin bronchial stenoses (series 3, image 29), stable. Pleural spaces: No pneumothorax. No pleural effusion. Heart: Minimal superior recess pericardial fluid. Coronary arteries: LAD and RCA calcified coronary atherosclerosis. Lymph nodes: Subcarinal granulomatous bharat calcification. Vasculature: Unremarkable. No aortic aneurysm. Pancreas: Moderate pancreatic atrophy. Spleen: A small medial splenule is present. Bones/joints: Thoracic spine vertebral body marginal osteophytes are noted at multiple levels. No destructive bony process identified. Diffuse osteopenia. Stable lateral left 9th rib bone island. Incidental manubriosternal fusion, normal variant. No destructive bony process identified. Soft tissues: Left breast benign macrocalcifications. CT/CT chest w con* [id number] IMPRESSION: 1. Previous left upper lobe/lingular resection. 2. Central left lower lobe basilar segment origin bronchial stenoses, stable. 3. No evidence of interval thoracic neoplasia. 4. Coronary atherosclerosis.
[2022-05-16] MEDS: iohexol 350 mg/mL 500 mL Btl (per mL) IV (12:39)
== END 2022-05-16 12:04 | disposition home or self-care (01) ==
LOC: RAD 12:06
PROVIDERS: PCP Emergency Medicine Emergency Medical Services; Visit Provider Nurse Practitioner Family
DX: C34.12 Malignant neoplasm of upper lobe, left bronchus or lung (principal); I25.10 Atherosclerotic heart disease of native coronary artery without angina pectoris
CPT/HCPCS: 71260; Q9967

== ENCOUNTER 2022-05-29 15:29 | Outpatient (CLI) | payer OTHER, SELFPAY ==
--- NOTE | 2022-05-29 16:00 | MR_ITS ---
WS: [id number] MRI BRAIN WITH HIGH-RESOLUTION IMAGING THROUGH THE INTERNAL AUDITORY CANALS WITHOUT AND WITH CONTRAST HISTORY: dizziness and Giddiness, numbness RIGHT side of face off balance with gait change. No injury . History of lung cancer. COMPARISON: None available. TECHNIQUE: Multiplanar, multisequence imaging is performed through the brain. Additional 3 mm imaging performed in multiple planes through the internal auditory canal. Postcontrast imaging with 20 ml's of MultiHance. Large area of abnormal signal involving the RIGHT cerebellum. Mild sparing of the superior cerebellum . This signal abnormality extends to involve the cerebellopontine angle and the origin of the 7th and 8th cranial nerves. Diffusion imaging is near normal with only slight increased signal. Increased T2 signal and ADC map is near normal. There is no hemorrhage. There is mass effect and loss of the sulc i and a large portion of the LEFT cerebellum. Mild encroachment upon the fourth ventricle and brainst em. There is no enhancement on the postcontrast imaging. There are a few additional scattered T2 and FLAIR signal hyperintensities and mild atrophy. No enhanc ement. No hydrocephalus. There is very slight mass effect upon the fourth ventricle due to the edema within the RIGHT cerebellum. No inferior displacement of cerebellar tonsils. Clivus and pituitary gland are normal. Internal and external auditory canals: No mass or abnormal enhancement. The signal abnormality within the cerebellum extends to involve the origin of the 7th and Paranasal sinuses: Mild mucoperiosteal thickening. Mastoid air cells: Normal. Calvarium and scalp: Normal. Visualized beaver of Fine and dural venous sinuses demonstrate no abnormality. MR/MR iac's wo/w con* [id number] IMPRESSION: 1. Large area of abnormal signal without enhancement involving the RIGHT cereb ellum. Most likely representing a subacute infarct. Not likely metastatic disea se as there is no enhancement. 2. Mild encroachment on the fourth ventricle but no hydrocephalus. 3. Mild small vessel ischemic disease. No enhancing masses. Notified Dr. Bill at 05/30/2022 8:20 AM.
[2022-05-29] MEDS: gadobenate dimeglumine 20 mL vial IV (16:48)
== END 2022-05-29 15:30 | disposition home or self-care (01) ==
LOC: RAD 15:30
PROVIDERS: PCP Emergency Medicine Emergency Medical Services; Visit Provider Otolaryngology
DX: R42 Dizziness and giddiness (principal); I67.82 Cerebral ischemia; R20.0 Anesthesia of skin; R26.89 Other abnormalities of gait and mobility
CPT/HCPCS: 70553; A9577

== ENCOUNTER 2022-06-09 06:16 | Outpatient (CLI) | payer OTHER, SELFPAY ==
--- NOTE | 2022-06-09 | USR_ITS ---
PROCEDURE INFORMATION: Exam: US Duplex Bilateral Extracranial Arteries, Carotid Arteries Exam date and time: 06/09/2022 6:31 AM Age: 71 years old Clinical indication: Other: Possible stroke; Additional info: Possible CVA TECHNIQUE: Imaging protocol: Real-time Duplex ultrasound scan of the bilateral carotid and vertebral arteries combining haskins scale, color Doppler and spectral waveform analysis. Bilateral exam. Exam focused on the carotid arteries. COMPARISON: MR lechuga's wo/w con* [id number] 05/29/2022 4:31 PM FINDINGS: Right common carotid artery: Unremarkable. No occlusion or stenosis. Waveforms are normal. Right internal carotid artery: Unremarkable. No occlusion or stenosis. Waveforms are normal. Right ICA/CCA ratio: Within normal limits. Right external carotid artery: No stenosis in the origin. Right vertebral artery: Unremarkable. Antegrade flow. Left common carotid artery: Unremarkable. No occlusion or stenosis. Waveforms are normal. Left internal carotid artery: Unremarkable. No occlusion or stenosis. Waveforms are normal. Left ICA/CCA ratio: Within normal limits. Left external carotid artery: No stenosis in the origin. Left vertebral artery: Unremarkable. Antegrade flow. US/CV carotid duplex BI* [id number] IMPRESSION: No carotid arterial stenosis. REFERENCES: SRU CRITERIA. The degree of internal carotid artery stenosis is based on criteria defined by the Society of Radiologists in Ultrasound (SRU). Normal is no stenosis. Mild is less than 50% stenosis. Moderate is 50-69% stenosis. Severe is greater than 69% stenosis to near occlusion. Near occlusion is a markedly narrowed lumen. Total occlusion is no detectable patent lumen.
== END 2022-06-09 06:17 | disposition home or self-care (01) ==
LOC: RAD 06:17
PROVIDERS: PCP Emergency Medicine Emergency Medical Services; Visit Provider Family Medicine
DX: R09.89 Other specified symptoms and signs involving the circulatory and respiratory systems (principal)
CPT/HCPCS: 93880

== ENCOUNTER → 2022-06-30 10:20 | Outpatient (BNVA) | payer OTHER, SELFPAY | PROVIDERS: PCP Emergency Medicine Emergency Medical Services; Visit Provider Otolaryngology | DX: R42 Dizziness and giddiness (principal); R20.0 Anesthesia of skin; H91.91 Unspecified hearing loss, right ear | CPT/HCPCS: 99213 ==

== ENCOUNTER 2022-07-16 12:26 | Oncology outpatient (recurring) (ONCR) | payer OTHER, SELFPAY ==
[2022-07-16 12:56] LABS: Basophils % 0.5 %; Eosinophils # 0.1 10^3/uL (0.0-0.8); Eosinophils % 1.7 %; Hemoglobin 14.4 g/dL (11.7-16.6); Lymphocytes # 1.4 10^3/uL (0.8-4.8); Lymphocytes % 21.9 %; Mean Corpuscular HGB Conc 33.5 g/dL (30.0-36.0); Mean Corpuscular Hemoglobin 30.7 pg (28.0-34.0); Mean Corpuscular Volume 91.7 fl (80-94); Mean Platelet Volume 10.6 fL (7.4-10.4); Monocytes # 0.7 10^3/uL (0.2-0.9); Monocytes % 11.1 %; Neutrophils # 4.13 10^3/uL (1.8-7.7); Neutrophils % 64.5 %; Nucleated Red Blood Cells % 0 %; Platelet Count 230 10^3/cmm (130-400); Red Blood Count 4.69 10^6/uL (4.1-5.3); Red Cell Distribution Width 12.7 % (12.1-15.1); White Blood Count 6.4 10^3/uL (4.0-10.0)
[2022-07-16 13:19] LABS: Alanine Aminotransferase 22 U/L (0-41); Albumin Level 4.2 g/dL (3.5-5.2); Alkaline Phosphatase 58 U/L (40-130); Blood Urea Nitrogen 16 mg/dL (8-23); Calcium 8.8 mg/dL (8.5-10.5); Carbon Dioxide 27 mmol/L (22-29); Chloride 105 mmol/L (98-107); Globulin 2.4 g/dL (1.3-4.6); Glomerular Filtration Rate 83.4 mL/min (90-130); Glucose 110 mg/dL (65-115); Osmolality Calculated 294 mOsm/kg (285-295); Sodium 141 mmol/L (136-145); Total Bilirubin 0.4 mg/dL (0.15-1.2); Total Protein 6.6 g/dL (6.6-8.7)
[2022-07-16 13:22] LABS: Anion Gap 13.2 (5-19); Aspartate Amino Transferase 24 U/L (0-40); Potassium 4.2 mmol/L (3.5-5.1)
== END 2022-07-29 23:59 | disposition home or self-care (01) ==
PROVIDERS: PCP Emergency Medicine Emergency Medical Services; Visit Provider Internal Medicine Medical Oncology
DX: Z08 Encounter for follow-up examination after completed treatment for malignant neoplasm (principal); Z85.118 Personal history of other malignant neoplasm of bronchus and lung; Z90.2 Acquired absence of lung [part of]; Z86.73 Personal history of transient ischemic attack (TIA), and cerebral infarction without residual deficits; Z87.891 Personal history of nicotine dependence
CPT/HCPCS: 36415; 80053; 85025; 99213

== ENCOUNTER 2022-07-21 13:13 | Outpatient (CLI) | payer OTHER, SELFPAY ==
--- NOTE | 2022-07-21 | USCV_ITS ---
JesuskatarinaNavneet Age: 72 Gender: M : 1950 Exam Date: 07/21/2022 14:21 Ordering Phys: Eliel Corley DO Technologist: Exam Location: [facility] [place] Indication: chest pain BP: 146 / 89 HR: 66 Rhythm: Sinus Technical Quality: Adequate MEASUREMENTS (Male / Female) Normal Values 2D ECHO LV Diastolic Diameter PLAX 2.8 cm 4.2 - 5.9 / 3.9 - 5.3 cm LV Systolic Diameter PLAX 2.4 cm IVS Diastolic Thickness 0.9 cm 0.6 - 1.0 / 0.6 - 0.9 cm IVS Systolic Thickness 1.5 cm LVPW Diastolic Thickness 3.0 cm 0.6 - 1.0 / 0.6 - 0.9 cm LVPW Systolic Thickness 1.3 cm LVOT Diameter 2.1 cm LV Ejection Fraction 2D Teich 64.3 % LV Ejection Fraction MOD 2C 73.9 % LV Ejection Fraction 2C AL 73.2 % LA Diameter 4.0 cm Aorta at Sinotubular Diameter 2.5 cm IVC Diameter 2.2 cm M-MODE Aortic Annulus Diameter 3.6 cm LA Ao Ratio MM 1.2 MV E Point Septal Separation 0.7 cm DOPPLER AV Peak Velocity 115.0 cm/s LVOT Peak Velocity 74.0 cm/s AV Area Cont Eq vti 2.2 cm squared AV Area Cont Eq pk 2.1 cm squared MV Area PHT 5.0 cm squared Mitral E to A Ratio 1.1 MV E' Velocity 50.5 cm/s Mitral E to MV E' Ratio 9.9 Mitral E to LV E' Lateral Ratio 8.2 Mitral E to LV E' Septal Ratio 12.7 TR Peak Velocity 160.7 cm/s TR Peak Gradient 10.3 mmHg TV Peak E Velocity 73.0 cm/s Right Atrial Pressure 3.0 mmHg Pulmonary Artery Systolic Pressu 13.3 mmHg RV Acceleration Time 0.2 s FINDINGS Left Ventricle Left ventricle is normal in size. LV systolic function is normal with EF of 55 to 60%. No regional wall motion abnormalities are seen. Diastolic function is normal. Right Ventricle Normal in size and function Right Atrium Normal in size Left Atrium Normal in size Mitral Valve Structurally normal mitral valve. Aortic Valve Aortic valve is thickened. No significant stenosis or regurgitation. Tricuspid Valve Mild tricuspid regurgitation. Insufficient TR jet to calculate RVSP Pulmonic Valve Not well-visualized Pericardium Normal Aorta Normal in size IVC Appears to be normal CONCLUSIONS LV systolic function is normal with EF of 55 to 60%. Diastolic function is normal. No significant valvular heart disease No comparison studies are available Raymond Marin MD (Electronically Signed) Final Date: 21 July 2022 15:14 S
== END 2022-07-21 13:14 | disposition home or self-care (01) ==
PROVIDERS: PCP Emergency Medicine Emergency Medical Services; Visit Provider Emergency Medicine Emergency Medical Services
DX: I63.9 Cerebral infarction, unspecified (principal); R07.9 Chest pain, unspecified; R42 Dizziness and giddiness; R06.09 Other forms of dyspnea
CPT/HCPCS: 93306; 99204

== ENCOUNTER 2022-07-22 08:25 | Outpatient (CLI) | payer OTHER, SELFPAY ==
--- NOTE | 2022-07-22 | MR_ITS ---
WS: [id number] MRI BRAIN WITHOUT CONTRAST HISTORY: DYSARTHRIA COMPARISON: 05/29/2022 TECHNIQUE: Diffusion imaging, multiplanar T1, T2 and FLAIR imaging obtained. Large area of increased T2 signal and low signal on the T1 sequences involving the RIGHT cerebellum w ith mass effect upon the fourth ventricle and aqueduct. There is no hemorrhage. Mass effect has sligh tly increased upon the brainstem and the fourth ventricle since the prior study. On the prior study t his did not enhance. This mass involves a large portion of the RIGHT cerebellum and the cerebellopont ine angle. There has been minimal interval change since the prior study from 05/29/2022. Otherwise the small vessel ischemic changes and atrophy are stable. No hydrocephalus at this time. No inferior displacement of the cerebellar tonsils. MR/MR head wo con* [id number] IMPRESSION: 1. Abnormal signal persists with mild progression involving large portion of t he RIGHT cerebellum with mass effect upon the brainstem and fourth ventricle. N o hydrocephalus at this time. Patient should be evaluated for developing hydroc ephalus. 2. 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 Consider low-grade neoplasm such as Lhermitte-Oseas Syndrome/low-grade gangliocytoma. Brain biopsy may be necessary for confirmation of the exact tumor type. This signal abnormality did not enhance in May 2022. Not typical for metastatic site. Notified Vasile Mcdonough MD at 07/22/2022 12:[address] Bill at 07/22/2022 12:47 PM.
== END 2022-07-22 08:26 | disposition home or self-care (01) ==
PROVIDERS: PCP Emergency Medicine Emergency Medical Services; Visit Provider Internal Medicine
DX: R47.1 Dysarthria and anarthria (principal); R26.0 Ataxic gait; R20.0 Anesthesia of skin; Z86.73 Personal history of transient ischemic attack (TIA), and cerebral infarction without residual deficits; D49.6 Neoplasm of unspecified behavior of brain; H90.3 Sensorineural hearing loss, bilateral
CPT/HCPCS: 70551; 99213

== ENCOUNTER → 2022-07-24 10:02 | Outpatient (BNVA) | payer OTHER, SELFPAY | PROVIDERS: PCP Emergency Medicine Emergency Medical Services; Visit Provider Internal Medicine Medical Oncology | DX: Z08 Encounter for follow-up examination after completed treatment for malignant neoplasm (principal); Z85.118 Personal history of other malignant neoplasm of bronchus and lung; Z90.2 Acquired absence of lung [part of]; R93.0 Abnormal findings on diagnostic imaging of skull and head, not elsewhere classified; R42 Dizziness and giddiness; R20.0 Anesthesia of skin; Z92.21 Personal history of antineoplastic chemotherapy | CPT/HCPCS: 99214 ==

== ENCOUNTER → 2022-09-15 17:46 | Outpatient (BNVA) | payer OTHER, SELFPAY | PROVIDERS: PCP Emergency Medicine Emergency Medical Services; Visit Provider Emergency Medicine | DX: U07.1 COVID-19 (principal) | CPT/HCPCS: 87426 ==

== ENCOUNTER 2022-12-30 11:49 | Outpatient (CLI) | payer OTHER, SELFPAY ==
--- NOTE | 2022-12-30 11:57 | CTR_ITS ---
PROCEDURE INFORMATION: Exam: CT Chest With Contrast; Diagnostic Exam date and time: 12/30/2022 12:43 PM Age: 72 years old Clinical indication: Condition or disease; Lung condition and disease; Cancer of the lung; Lobe, upper; Primary cancer: Left upper lobe lung; Follow-up oncological assessment; Prior surgery; Surgery date: 6+ months; Additional info: Surveillance TECHNIQUE: Imaging protocol: Diagnostic computed tomography of the chest with contrast. Radiation optimization: All CT scans at this facility use at least one of these dose optimization techniques: automated exposure control; mA and/or kV adjustment per patient size (includes targeted exams where dose is matched to clinical indication); or iterative reconstruction. Contrast material: OMNI 350; Contrast volume: 95 ml; Contrast route: INTRAVENOUS (IV); REPORTING DATA: Count of CT and Cardiac NM exams in prior 12 months: This patient has received 2 known CTs and 0 known cardiac nuclear medicine studies in the 12 months prior to the current study. COMPARISON: CT chest w con* [id number] 05/16/2022 12:25 PM RADIATION DOSE METRICS: Total DLP (mGy-cm): 377.84 FINDINGS: Lungs: Emphysematous changes. Pleural spaces: Unremarkable. No pneumothorax. No pleural effusion. Heart: Unremarkable. No cardiomegaly. No pericardial effusion. Coronary arteries: Coronary artery atherosclerotic calcifications. Lymph nodes: Unremarkable. No enlarged lymph nodes. Vasculature: Unremarkable. No aortic aneurysm. Liver: Hepatic steatosis. Adrenal glands: Right adrenal 3.3 cm nodule new compared to prior exam, concerning for metastatic disease given history of cancer. Stomach and bowel: Constipation. Bones/joints: Unremarkable. No acute fracture. Soft tissues: Left chest 7.3 cm probable lipoma, similar to prior exam. CT/CT chest w con* [id number] IMPRESSION: 1. Right adrenal 3.3 cm nodule new compared to prior exam, concerning for metastatic disease given history of cancer. CT abdomen and pelvis could further characterize this. 2. Coronary artery atherosclerotic calcifications. 3. Emphysematous changes. 4. Hepatic steatosis. 5. Constipation. 6. Left chest 7.3 cm probable lipoma, similar to prior exam. COMMENTS: In the absence of a history or active diagnosis of lung cancer, it is recommended that this patient with emphysema be evaluated for enrollment in a low dose CT lung cancer screening program.
[2022-12-30] MEDS: iohexol 350 mg/mL 500 mL Btl (per mL) IV (12:45)
== END 2022-12-30 11:50 | disposition home or self-care (01) ==
PROVIDERS: PCP Emergency Medicine Emergency Medical Services; Visit Provider Internal Medicine Medical Oncology
DX: C34.12 Malignant neoplasm of upper lobe, left bronchus or lung (principal); I25.10 Atherosclerotic heart disease of native coronary artery without angina pectoris; K76.0 Fatty (change of) liver, not elsewhere classified; K59.00 Constipation, unspecified
CPT/HCPCS: 71260; Q9967

== ENCOUNTER 2023-01-10 05:40 | Outpatient (CLI) | payer OTHER, SELFPAY ==
--- NOTE | 2023-01-10 11:30 | PETR_ITS ---
PROCEDURE INFORMATION: Exam: PET/CT Skull Base to Mid-thigh Exam date and time: 01/10/2023 12:24 PM Age: 72 years old Clinical indication: Abnormal findings; New mass on right adrenal per CT; Prior surgery; Surgery date: 6+ months; Surgery type: Left upper lobe LABS AND CLINICAL REPORTS: Glucose: 86 mg/dl Treatment strategy for malignancy (PET staging): Restaging (PS) TECHNIQUE: Imaging protocol: Following at least four-hour fasting and following the injection of radiopharmaceutical, low dose CT images were obtained. Then, PET images were obtained. Attenuation corrected images were constructed using the CT scan. Fused images of PET and CT were reviewed. The standardized uptake values (SUV) reported below are maximum values within a region of interest, expressed in gm/ml. Exam includes orbital meatal line to mid-thigh. Radiopharmaceutical: 11.81 mCi F-18 FDG (Fluorodeoxyglucose), IV. Time of imaging post radiopharmaceutical administration: 1 hour Injection site: Right antecubital COMPARISON: CT chest 12/30/2022, MRI brain 07/22/2022, CT chest 05/16/2022, PT PET Scan 03/09/2021 3:04 PM FINDINGS: Brain: The visualized brain is notable for similar asymmetric decreased uptake in the right cerebellar hemisphere. No abnormal elevated uptake. A previously identified right cerebellar mass is not well delineated on the noncontrast images. Pharynx: No abnormal uptake. Larynx: No abnormal uptake. Lungs, pleura and trachea: A small focus of elevated uptake in the medial right upper lobe on series 4, image 50 is present, SUV max 2.2. This appears to correspond to a soft tissue density noncalcified nodule measuring [address] series 3, image 50 which is similar compared with 12/30/2022 and 05/16/2022. This nodule may have been faintly present on the prior PET-CT of 03/09/2021 with similar uptake, however this region was not well assessed secondary to motion artifact on the prior PET CT images. There are postoperative changes of left upper lobectomy. No elevated uptake. Heart: Normal physiologic uptake. Mediastinal space: No abnormal uptake. Liver: No abnormal uptake. Gallbladder and bile ducts: No abnormal uptake. Pancreas: No abnormal uptake. Spleen: No abnormal uptake. Adrenal glands: Abnormal uptake (SUV max 8.9) is identified in a right adrenal nodule measuring approximately 3.3 x 2.0 cm on series 3, image 82. Unremarkable left adrenal gland. Kidneys and ureters: Normal physiologic uptake. A non radiotracer avid rounded fluid density simple benign appearing cyst in the right renal inferior pole measures 1.2 cm. Unremarkable left kidney. Stomach and bowel: No abnormal uptake. Urinary bladder: Elevated uptake in the region of the proximal penile urethra is likely physiologic, SUV max 9.6 on PET series 4, image 154. Vasculature: No abnormal uptake. There are diffuse atherosclerotic changes. Lymph nodes: No abnormal uptake. No lymphadenopathy in the head, neck, chest, abdomen, pelvis, and extremities. Calcified left hilar and subcarinal lymph nodes are noted without elevated uptake. Bones/joints: No abnormal uptake in the visualized axial and appendicular skeleton. There is mild diffuse vertebral body spondylosis. Soft tissues: No abnormal uptake in the visualized head, neck, chest, abdomen, pelvis, and extremities. There is a non radiotracer avid circumscribed fat density lesion in the left anterior chest wall containing coarse calcifications measuring 8.5 x 5.1 cm on series 3, image 47 similar to the prior studies. METRICS: Mediastinal blood pool: SUV max 2.8 PET/PET skulltothigh SUBSEQ [id number] IMPRESSION: 1. A right adrenal nodule is new since the prior PET-CT and is radiotracer avid (SUV max 8.9) compatible with malignancy, likely metastatic. 2. Low-level uptake (SUV max 2.2) within a 6 mm right upper lobe nodule which is unchanged in size since 05/16/2022 and may have been faintly visible on the prior PET-CT with similar uptake. Assessment of small nodules can be limited by PET-CT. A metastasis in this region cannot be excluded. 3. Similar probable left chest wall lipoma without elevated uptake. 4. Similar relative decreased uptake in the right cerebellar hemisphere. No elevated uptake in the visualized brain. Please refer to the report for the prior MRI brain for further discussion of brain findings. 5. Additional nonurgent findings as detailed above.
== END 2023-01-10 05:41 | disposition home or self-care (01) ==
LOC: RAD 01-12 05:41
PROVIDERS: PCP Emergency Medicine Emergency Medical Services; Visit Provider Internal Medicine Medical Oncology
DX: C34.12 Malignant neoplasm of upper lobe, left bronchus or lung (principal)
CPT/HCPCS: 78815; A9552

== ENCOUNTER 2023-01-26 09:30 | Oncology outpatient (recurring) (ONCR) | payer OTHER, SELFPAY ==
[2023-01-13 12:48] VITALS: BP 134/78; PULSE 83; RESP 18; TEMP 36.6; O2SAT 96
[2023-01-13 12:58] LABS: Basophils % 0.2 %; Eosinophils # 0.1 10^3/uL (0.0-0.8); Eosinophils % 2.3 %; Hemoglobin 14.3 g/dL (11.7-16.6); Lymphocytes # 1.2 10^3/uL (0.8-4.8); Lymphocytes % 21.1 %; Mean Corpuscular HGB Conc 33.3 g/dL (30.0-36.0); Mean Corpuscular Hemoglobin 32.2 pg (28.0-34.0); Mean Corpuscular Volume 96.8 fl (80-94); Mean Platelet Volume 9.8 fL (7.4-10.4); Monocytes # 0.5 10^3/uL (0.2-0.9); Monocytes % 9.3 %; Neutrophils # 3.73 10^3/uL (1.8-7.7); Neutrophils % 66.7 %; Nucleated Red Blood Cells % 0 %; Platelet Count 191 10^3/cmm (130-400); Red Blood Count 4.44 10^6/uL (4.1-5.3); Red Cell Distribution Width 12.1 % (12.1-15.1); White Blood Count 5.6 10^3/uL (4.0-10.0)
[2023-01-13 13:25] LABS: Alanine Aminotransferase 10 U/L (0-41); Alkaline Phosphatase 48 U/L (40-130); Blood Urea Nitrogen 11 mg/dL (8-23); Calcium 9.1 mg/dL (8.5-10.5); Carbon Dioxide 24 mmol/L (22-29); Chloride 106 mmol/L (98-107); Globulin 2.5 g/dL (1.3-4.6); Glomerular Filtration Rate 95.6 mL/min (90-130); Glucose 110 mg/dL (65-115); Osmolality Calculated 290 mOsm/kg (285-295); Sodium 140 mmol/L (136-145); Total Bilirubin 0.5 mg/dL (0.15-1.2); Total Protein 6.5 g/dL (6.6-8.7)
[2023-01-13 13:29] LABS: Anion Gap 14.3 (5-19); Aspartate Amino Transferase 19 U/L (0-40); Potassium 4.3 mmol/L (3.5-5.1)
[2023-01-26 09:58] LABS: Basophils % 0.3 %; Eosinophils # 0.1 10^3/uL (0.0-0.8); Eosinophils % 1.5 %; Hematocrit 42.8 % (37-53); Lymphocytes # 1.2 10^3/uL (0.8-4.8); Lymphocytes % 16.2 %; Mean Corpuscular HGB Conc 33.9 g/dL (30-55); Mean Corpuscular Hemoglobin 31.6 pg (27-33); Mean Corpuscular Volume 93.2 fl (82-101); Mean Platelet Volume 10.3 fL (7.4-10.4); Monocytes # 0.6 10^3/uL (0.2-0.9); Monocytes % 8.6 %; Neutrophils # 5.24 10^3/uL (1.8-7.7); Nucleated Red Blood Cells % 0 %; Platelet Count 247 10^3/cmm (157-399); Red Blood Count 4.59 10^6/uL (3.85-5.65); Red Cell Distribution Width 12.5 % (12.1-15.1); White Blood Count 7.18 10^3/uL (3.29-11.43)
[2023-01-26 10:31] LABS: Alanine Aminotransferase 11 U/L (0-41); Albumin Level 4.4 g/dL (3.5-5.2); Alkaline Phosphatase 56 U/L (40-130); Aspartate Amino Transferase 12 U/L (0-40); Blood Urea Nitrogen 13 mg/dL (8-23); Calcium 9.1 mg/dL (8.5-10.5); Carbon Dioxide 27 mmol/L (22-29); Chloride 103 mmol/L (98-107); Globulin 2.4 g/dL (1.3-4.6); Glomerular Filtration Rate 95.6 mL/min (90-130); Glucose 117 mg/dL (65-115); Osmolality Calculated 291 mOsm/kg (285-295); Sodium 140 mmol/L (136-145); Thyroid Stimulating Hormone 1.86 uIU/mL (0.27-4.20); Total Bilirubin 0.6 mg/dL (0.15-1.2); Total Protein 6.8 g/dL (6.6-8.7)
[2023-01-26] MEDS: pembrolizumab 200 MG in sodium chloride 0.9% 250 ML 516 MG IV (14:37)
[2023-01-26 15:17] VITALS: BP 125/70; PULSE 65; RESP 16; TEMP 36.6; O2SAT 97
== END 2023-01-26 23:59 | disposition home or self-care (01) ==
PROVIDERS: PCP Emergency Medicine Emergency Medical Services; Visit Provider Internal Medicine Medical Oncology
DX: Z51.12 Encounter for antineoplastic immunotherapy (principal); C34.12 Malignant neoplasm of upper lobe, left bronchus or lung; C79.71 Secondary malignant neoplasm of right adrenal gland; C79.31 Secondary malignant neoplasm of brain; Z90.2 Acquired absence of lung [part of]; R11.0 Nausea; Z79.899 Other long term (current) drug therapy; Z87.891 Personal history of nicotine dependence
CPT/HCPCS: 36415; 80053; 84443; 85025; 96413; 99215; J7050; J9271

== ENCOUNTER 2023-02-16 08:55 | Oncology outpatient (recurring) (ONCR) | payer OTHER, SELFPAY ==
[2023-02-04 09:10] LABS: Basophils % 0.5 %; Eosinophils # 0.1 10^3/uL (0.0-0.8); Eosinophils % 1.4 %; Hematocrit 40.7 % (37-53); Lymphocytes % 16.4 %; Mean Corpuscular HGB Conc 33.9 g/dL (30-55); Mean Corpuscular Hemoglobin 32.2 pg (27-33); Mean Corpuscular Volume 94.9 fl (82-101); Mean Platelet Volume 10.4 fL (7.4-10.4); Monocytes # 0.6 10^3/uL (0.2-0.9); Monocytes % 10.5 %; Neutrophils # 4.13 10^3/uL (1.8-7.7); Nucleated Red Blood Cells % 0 %; Platelet Count 275 10^3/cmm (157-399); Red Blood Count 4.29 10^6/uL (3.85-5.65); Red Cell Distribution Width 12.6 % (12.1-15.1); White Blood Count 5.81 10^3/uL (3.29-11.43)
[2023-02-04 09:28] LABS: Alanine Aminotransferase 12 U/L (0-41); Alkaline Phosphatase 69 U/L (40-130); Anion Gap 14.8 (5-19); Aspartate Amino Transferase 16 U/L (0-40); Blood Urea Nitrogen 12 mg/dL (8-23); Calcium 9.2 mg/dL (8.5-10.5); Carbon Dioxide 27 mmol/L (22-29); Chloride 104 mmol/L (98-107); Globulin 2.8 g/dL (1.3-4.6); Glomerular Filtration Rate 73.9 mL/min (90-130); Glucose 158 mg/dL (65-115); Osmolality Calculated 295 mOsm/kg (285-295); Potassium 4.8 mmol/L (3.5-5.1); Sodium 141 mmol/L (136-145); Total Bilirubin 0.4 mg/dL (0.15-1.2); Total Protein 6.8 g/dL (6.6-8.7)
[2023-02-16 09:12] VITALS: BP 102/69; PULSE 86; RESP 16; TEMP 36.9; O2SAT 97
[2023-02-16 09:39] LABS: Basophils % 0.3 %; Eosinophils # 0.1 10^3/uL (0.0-0.8); Eosinophils % 0.8 %; Lymphocytes # 0.8 10^3/uL (0.8-4.8); Lymphocytes % 10.8 %; Mean Corpuscular HGB Conc 33.5 g/dL (30-55); Mean Corpuscular Hemoglobin 31.6 pg (27-33); Mean Corpuscular Volume 94.3 fl (82-101); Mean Platelet Volume 10.4 fL (7.4-10.4); Monocytes # 0.9 10^3/uL (0.2-0.9); Monocytes % 11.7 %; Nucleated Red Blood Cells % 0 %; Platelet Count 278 10^3/cmm (157-399); Red Blood Count 4.24 10^6/uL (3.85-5.65); Red Cell Distribution Width 12.7 % (12.1-15.1); White Blood Count 7.62 10^3/uL (3.29-11.43)
[2023-02-16 10:10] LABS: Alanine Aminotransferase 12 U/L (0-41); Albumin Level 4.2 g/dL (3.5-5.2); Alkaline Phosphatase 76 U/L (40-130); Anion Gap 14.8 (5-19); Aspartate Amino Transferase 12 U/L (0-40); Blood Urea Nitrogen 9 mg/dL (8-23); Calcium 9.5 mg/dL (8.5-10.5); Carbon Dioxide 26 mmol/L (22-29); Chloride 100 mmol/L (98-107); Globulin 2.7 g/dL (1.3-4.6); Glomerular Filtration Rate 95.6 mL/min (90-130); Glucose 124 mg/dL (65-115); Osmolality Calculated 284 mOsm/kg (285-295); Potassium 3.8 mmol/L (3.5-5.1); Sodium 137 mmol/L (136-145); Total Bilirubin 0.5 mg/dL (0.15-1.2); Total Protein 6.9 g/dL (6.6-8.7)
[2023-02-16 10:11] LABS: Thyroid Stimulating Hormone 0.04 uIU/mL (0.27-4.20)
[2023-02-16 11:31] LABS: Free T4 Free Thyroxine 3.46 ng/dL (0.82-1.77); T3 Free 7.3 PG/ML (2.0-4.4)
== END 2023-02-28 23:59 | disposition home or self-care (01) ==
PROVIDERS: Nurse Practitioner Family; PCP Emergency Medicine Emergency Medical Services; Visit Provider Internal Medicine Medical Oncology
DX: C34.12 Malignant neoplasm of upper lobe, left bronchus or lung; C71.6 Malignant neoplasm of cerebellum; E03.9 Hypothyroidism, unspecified; Z79.899 Other long term (current) drug therapy; Z53.9 Procedure and treatment not carried out, unspecified reason
CPT/HCPCS: 36415; 80053; 84439; 84443; 84481; 85025; 99214

== ENCOUNTER 2023-03-16 09:15 | Oncology outpatient (recurring) (ONCR) | payer OTHER, SELFPAY ==
[2023-03-02 09:23] VITALS: BP 136/87; PULSE 77; RESP 16; TEMP 36.7; O2SAT 98
[2023-03-02 09:42] LABS: Basophils % 0.2 %; Eosinophils % 0.1 %; Hematocrit 41.5 % (37-53); Lymphocytes # 1.2 10^3/uL (0.8-4.8); Lymphocytes % 7.1 %; Mean Corpuscular HGB Conc 32.8 g/dL (30-55); Mean Corpuscular Hemoglobin 31.5 pg (27-33); Mean Corpuscular Volume 96.1 fl (82-101); Mean Platelet Volume 9.6 fL (7.4-10.4); Monocytes # 1.3 10^3/uL (0.2-0.9); Monocytes % 8.1 %; Neutrophils # 13.73 10^3/uL (1.8-7.7); Neutrophils % 82.8 %; Nucleated Red Blood Cells % 0 %; Platelet Count 301 10^3/cmm (157-399); Red Blood Count 4.32 10^6/uL (3.85-5.65); Red Cell Distribution Width 12.8 % (12.1-15.1); White Blood Count 16.56 10^3/uL (3.29-11.43)
[2023-03-02 10:19] LABS: Alanine Aminotransferase 94 U/L (0-41); Albumin Level 3.7 g/dL (3.5-5.2); Alkaline Phosphatase 53 U/L (40-130); Aspartate Amino Transferase 22 U/L (0-40); Blood Urea Nitrogen 22 mg/dL (8-23); Calcium 8.8 mg/dL (8.5-10.5); Carbon Dioxide 28 mmol/L (22-29); Chloride 102 mmol/L (98-107); Globulin 2.6 g/dL (1.3-4.6); Glomerular Filtration Rate 95.6 mL/min (90-130); Glucose 89 mg/dL (65-115); Osmolality Calculated 291 mOsm/kg (285-295); Sodium 139 mmol/L (136-145); Thyroid Stimulating Hormone 0.01 uIU/mL (0.27-4.20); Total Bilirubin 0.3 mg/dL (0.15-1.2); Total Protein 6.3 g/dL (6.6-8.7)
[2023-03-02 10:29] LABS: Anion Gap 13.4 (5-19); Potassium 4.4 mmol/L (3.5-5.1)
[2023-03-02 12:04] LABS: Free T4 Free Thyroxine 2.29 ng/dL (0.82-1.77); T3 Free 3.1 PG/ML (2.0-4.4)
[2023-03-16 10:09] LABS: Basophils % 0.2 %; Eosinophils # 0.1 10^3/uL (0.0-0.8); Eosinophils % 0.5 %; Hematocrit 41.6 % (37-53); Lymphocytes # 1.2 10^3/uL (0.8-4.8); Lymphocytes % 12.3 %; Mean Corpuscular HGB Conc 32.7 g/dL (30-55); Mean Corpuscular Hemoglobin 31.3 pg (27-33); Mean Corpuscular Volume 95.9 fl (82-101); Mean Platelet Volume 9.3 fL (7.4-10.4); Monocytes # 0.6 10^3/uL (0.2-0.9); Monocytes % 6.3 %; Neutrophils # 7.81 10^3/uL (1.8-7.7); Neutrophils % 79.7 %; Nucleated Red Blood Cells % 0 %; Platelet Count 250 10^3/cmm (157-399); Red Blood Count 4.34 10^6/uL (3.85-5.65); Red Cell Distribution Width 12.8 % (12.1-15.1); White Blood Count 9.81 10^3/uL (3.29-11.43)
[2023-03-16 10:50] LABS: Alanine Aminotransferase 37 U/L (0-41); Albumin Level 3.7 g/dL (3.5-5.2); Alkaline Phosphatase 47 U/L (40-130); Blood Urea Nitrogen 15 mg/dL (8-23); Calcium 9.1 mg/dL (8.5-10.5); Carbon Dioxide 28 mmol/L (22-29); Chloride 98 mmol/L (98-107); Globulin 2.7 g/dL (1.3-4.6); Glomerular Filtration Rate 95.6 mL/min (90-130); Glucose 89 mg/dL (65-115); Osmolality Calculated 282 mOsm/kg (285-295); Sodium 136 mmol/L (136-145); Thyroid Stimulating Hormone 1.85 uIU/mL (0.27-4.20); Total Bilirubin 0.4 mg/dL (0.15-1.2); Total Protein 6.4 g/dL (6.6-8.7)
[2023-03-16 10:52] LABS: Anion Gap 14.2 (5-19); Potassium 4.2 mmol/L (3.5-5.1)
[2023-03-16 10:53] LABS: Aspartate Amino Transferase 16 U/L (0-40)
== END 2023-03-31 23:59 | disposition home or self-care (01) ==
PROVIDERS: Nurse Practitioner Family; PCP Emergency Medicine Emergency Medical Services; Visit Provider Internal Medicine Medical Oncology
DX: C34.12 Malignant neoplasm of upper lobe, left bronchus or lung; C79.31 Secondary malignant neoplasm of brain; E05.90 Thyrotoxicosis, unspecified without thyrotoxic crisis or storm; Z87.891 Personal history of nicotine dependence
CPT/HCPCS: 36415; 80053; 84439; 84443; 84481; 85025; 99214

== ENCOUNTER 2023-04-27 08:50 | Oncology outpatient (recurring) (ONCR) | payer OTHER, SELFPAY ==
[2023-04-27 09:06] VITALS: BP 119/78; PULSE 72; RESP 16; TEMP 36.7; O2SAT 97
[2023-04-27 09:23] LABS: Basophils % 0.3 %; Eosinophils # 0.1 10^3/uL (0.0-0.8); Eosinophils % 0.9 %; Hematocrit 39.5 % (37-53); Lymphocytes # 0.8 10^3/uL (0.8-4.8); Lymphocytes % 8.3 %; Mean Corpuscular HGB Conc 32.4 g/dL (30-55); Mean Corpuscular Hemoglobin 31.7 pg (27-33); Mean Corpuscular Volume 97.8 fl (82-101); Mean Platelet Volume 9.7 fL (7.4-10.4); Monocytes # 0.6 10^3/uL (0.2-0.9); Monocytes % 6.9 %; Neutrophils # 7.52 10^3/uL (1.8-7.7); Neutrophils % 82.2 %; Nucleated Red Blood Cells % 0 %; Platelet Count 262 10^3/cmm (157-399); Red Blood Count 4.04 10^6/uL (3.85-5.65); Red Cell Distribution Width 13.5 % (12.1-15.1); White Blood Count 9.15 10^3/uL (3.29-11.43)
[2023-04-27 09:52] LABS: Alanine Aminotransferase 24 U/L (0-41); Albumin Level 3.9 g/dL (3.5-5.2); Alkaline Phosphatase 46 U/L (40-130); Anion Gap 13.4 (5-19); Aspartate Amino Transferase 12 U/L (0-40); Blood Urea Nitrogen 16 mg/dL (8-23); Carbon Dioxide 26 mmol/L (22-29); Chloride 103 mmol/L (98-107); Globulin 2.2 g/dL (1.3-4.6); Glomerular Filtration Rate 111.5 mL/min (90-130); Glucose 117 mg/dL (65-115); Osmolality Calculated 288 mOsm/kg (285-295); Potassium 4.4 mmol/L (3.5-5.1); Sodium 138 mmol/L (136-145); Thyroid Stimulating Hormone 3.04 uIU/mL (0.27-4.20); Total Bilirubin 0.3 mg/dL (0.15-1.2); Total Protein 6.1 g/dL (6.6-8.7)
== END 2023-04-30 23:59 | disposition home or self-care (01) ==
PROVIDERS: PCP Emergency Medicine Emergency Medical Services; Visit Provider Internal Medicine Medical Oncology
DX: C34.12 Malignant neoplasm of upper lobe, left bronchus or lung (principal); C79.31 Secondary malignant neoplasm of brain; E05.90 Thyrotoxicosis, unspecified without thyrotoxic crisis or storm; Z87.891 Personal history of nicotine dependence; Z08 Encounter for follow-up examination after completed treatment for malignant neoplasm; Z85.118 Personal history of other malignant neoplasm of bronchus and lung; Z90.2 Acquired absence of lung [part of]; Z86.73 Personal history of transient ischemic attack (TIA), and cerebral infarction without residual deficits
CPT/HCPCS: 36415; 80053; 84443; 85025; 99214

== ENCOUNTER 2023-05-06 13:35 | Outpatient (CLI) | payer OTHER, SELFPAY ==
[2023-05-06] MEDS: iohexol 350 mg/mL 500 mL Btl (per mL) PO (14:02)
--- NOTE | 2023-05-06 15:00 | CTR_ITS ---
PROCEDURE INFORMATION: Exam: CT Chest With Contrast; Diagnostic Exam date and time: 05/06/2023 3:19 PM Age: 72 years old Clinical indication: Condition or disease; Other: Lung cancer; Lung condition and disease; Cancer of the lung; Unspecified; Prior surgery; Surgery date: 6+ months; Surgery type: Left lung; Patient HX: HX of lung and brain cancer TECHNIQUE: Imaging protocol: Diagnostic computed tomography of the chest with contrast. Radiation optimization: All CT scans at this facility use at least one of these dose optimization techniques: automated exposure control; mA and/or kV adjustment per patient size (includes targeted exams where dose is matched to clinical indication); or iterative reconstruction. Contrast material: OMNI 350; Contrast volume: 95 ml; Contrast route: INTRAVENOUS (IV); REPORTING DATA: Count of CT and Cardiac NM exams in prior 12 months: This patient has received 3 known CTs and 0 known cardiac nuclear medicine studies in the 12 months prior to the current study. COMPARISON: CT chest w con* [id number] 12/30/2022 12:43 PM RADIATION DOSE METRICS: Total DLP (mGy-cm): 1099.7 FINDINGS: Lungs: Unremarkable. No consolidation. No masses. Pleural spaces: Unremarkable. No pneumothorax. No pleural effusion. Heart: Unremarkable. No cardiomegaly. No pericardial effusion. Lymph nodes: Unremarkable. No enlarged lymph nodes. Vasculature: Unremarkable. No aortic aneurysm. Bones/joints: Unremarkable. No acute fracture. Soft tissues: Large unchanged chest wall lipoma containing focal coarse calcifications. PROCEDURE INFORMATION: Exam: CT Abdomen And Pelvis With Contrast Exam date and time: 05/06/2023 3:19 PM Age: 72 years old Clinical indication: Condition or disease; Other: Lung cancer; Lung condition and disease; Cancer of the lung; Unspecified; Prior surgery; Surgery date: 6+ months; Surgery type: Left lung; Patient HX: HX of lung and brain cancer TECHNIQUE: Imaging protocol: Computed tomography of the abdomen and pelvis with contrast. Radiation optimization: All CT scans at this facility use at least one of these dose optimization techniques: automated exposure control; mA and/or kV adjustment per patient size (includes targeted exams where dose is matched to clinical indication); or iterative reconstruction. Contrast material: OMNI 350; Contrast volume: 95 ml; Contrast route: INTRAVENOUS (IV); REPORTING DATA: Count of CT and Cardiac NM exams in prior 12 months: This patient has received 3 known CTs and 0 known cardiac nuclear medicine studies in the 12 months prior to the current study. COMPARISON: CT chest w con* [id number] 12/30/2022 12:43 PM RADIATION DOSE METRICS: Total DLP (mGy-cm): 1099.7 FINDINGS: Liver: Mild hepatic steatosis. Gallbladder and bile ducts: Normal. No calcified stones. No ductal dilation. Pancreas: Normal. No ductal dilation. Spleen: Normal. No splenomegaly. Adrenal glands: Enlarging heterogeneous right adrenal mass, currently 5.2 x 2.7 cm in size, previously 4.0 x 1.8 cm. The left adrenal is normal. Kidneys and ureters: Normal. No hydronephrosis. Stomach and bowel: Unremarkable. No obstruction. No mucosal thickening. Appendix: No evidence of appendicitis. Intraperitoneal space: Unremarkable. No free air. No significant fluid collection. Vasculature: Unremarkable. No abdominal aortic aneurysm. Lymph nodes: Unremarkable. No enlarged lymph nodes. Urinary bladder: Unremarkable as visualized. Reproductive: Unremarkable as visualized. Bones/joints: Unremarkable. No acute fracture. Soft tissues: Unremarkable. CT/CT chest abdpel w/*[id number] IMPRESSION: No acute findings. IMPRESSION: Enlarging right adrenal metastasis.
[2023-05-06] MEDS: iohexol 350 mg/mL 500 mL Btl (per mL) IV (15:32)
== END 2023-05-06 13:36 | disposition home or self-care (01) ==
LOC: RAD 13:35
PROVIDERS: PCP Emergency Medicine Emergency Medical Services; Visit Provider Internal Medicine Medical Oncology
DX: L82.1 Other seborrheic keratosis (principal); C34.12 Malignant neoplasm of upper lobe, left bronchus or lung; L72.0 Epidermal cyst; Z08 Encounter for follow-up examination after completed treatment for malignant neoplasm; Z85.828 Personal history of other malignant neoplasm of skin; L82.0 Inflamed seborrheic keratosis; L57.0 Actinic keratosis
CPT/HCPCS: 17000; 17110; 71260; 74177; 99213; Q9967

== ENCOUNTER 2023-06-16 10:00 | Oncology outpatient (recurring) (ONCR) | payer OTHER, SELFPAY ==
[2023-06-08 09:13] VITALS: BP 120/79; PULSE 83; RESP 16; TEMP 36.3; O2SAT 98
[2023-06-08 09:36] LABS: Basophils % 0.5 %; Eosinophils # 0.1 10^3/uL (0.0-0.8); Eosinophils % 0.8 %; Hematocrit 41.2 % (37-53); Lymphocytes # 0.9 10^3/uL (0.8-4.8); Lymphocytes % 11.6 %; Mean Corpuscular HGB Conc 32.5 g/dL (30-55); Mean Corpuscular Hemoglobin 31.8 pg (27-33); Mean Corpuscular Volume 97.6 fl (82-101); Mean Platelet Volume 9.7 fL (7.4-10.4); Monocytes # 0.7 10^3/uL (0.2-0.9); Monocytes % 9.1 %; Neutrophils # 5.66 10^3/uL (1.8-7.7); Nucleated Red Blood Cells % 0 %; Platelet Count 269 10^3/cmm (157-399); Red Blood Count 4.22 10^6/uL (3.85-5.65); Red Cell Distribution Width 12.6 % (12.1-15.1); White Blood Count 7.35 10^3/uL (3.29-11.43)
[2023-06-08 09:59] LABS: Alanine Aminotransferase 11 U/L (0-41); Albumin Level 3.9 g/dL (3.5-5.2); Alkaline Phosphatase 47 U/L (40-130); Anion Gap 16.2 (5-19); Aspartate Amino Transferase 16 U/L (0-40); Blood Urea Nitrogen 14 mg/dL (8-23); Carbon Dioxide 25 mmol/L (22-29); Chloride 103 mmol/L (98-107); Globulin 2.5 g/dL (1.3-4.6); Glomerular Filtration Rate 111.5 mL/min (90-130); Glucose 130 mg/dL (65-115); Osmolality Calculated 292 mOsm/kg (285-295); Potassium 4.2 mmol/L (3.5-5.1); Sodium 140 mmol/L (136-145); Total Bilirubin 0.5 mg/dL (0.15-1.2); Total Protein 6.4 g/dL (6.6-8.7)
[2023-06-16 09:30] VITALS: BP 106/66; PULSE 75; RESP 16; TEMP 36.6; O2SAT 97
[2023-06-16 09:34] LABS: Basophils # 0.1 10^3/uL (0.0-0.1); Basophils % 0.7 %; Eosinophils # 0.1 10^3/uL (0.0-0.8); Eosinophils % 0.7 %; Hematocrit 39.6 % (37-53); Lymphocytes # 1.2 10^3/uL (0.8-4.8); Lymphocytes % 15.7 %; Mean Corpuscular HGB Conc 32.8 g/dL (30-55); Mean Corpuscular Volume 97.5 fl (82-101); Monocytes # 0.7 10^3/uL (0.2-0.9); Monocytes % 10.1 %; Neutrophils # 5.27 10^3/uL (1.8-7.7); Neutrophils % 71.8 %; Nucleated Red Blood Cells % 0 %; Platelet Count 216 10^3/cmm (157-399); Red Blood Count 4.06 10^6/uL (3.85-5.65); Red Cell Distribution Width 12.2 % (12.1-15.1); White Blood Count 7.33 10^3/uL (3.29-11.43)
[2023-06-16 10:01] LABS: Alanine Aminotransferase 13 U/L (0-41); Albumin Level 3.6 g/dL (3.5-5.2); Alkaline Phosphatase 48 U/L (40-130); Aspartate Amino Transferase 11 U/L (0-40); Blood Urea Nitrogen 19 mg/dL (8-23); Calcium 8.6 mg/dL (8.5-10.5); Carbon Dioxide 28 mmol/L (22-29); Chloride 106 mmol/L (98-107); Globulin 2.3 g/dL (1.3-4.6); Glucose 102 mg/dL (65-115); Osmolality Calculated 296 mOsm/kg (285-295); Sodium 142 mmol/L (136-145); Total Bilirubin 0.3 mg/dL (0.15-1.2); Total Protein 5.9 g/dL (6.6-8.7)
== END 2023-07-01 23:59 | disposition home or self-care (01) ==
PROVIDERS: PCP Emergency Medicine Emergency Medical Services; Visit Provider Internal Medicine Medical Oncology
DX: C34.12 Malignant neoplasm of upper lobe, left bronchus or lung (principal); C79.31 Secondary malignant neoplasm of brain; E05.90 Thyrotoxicosis, unspecified without thyrotoxic crisis or storm; Z87.891 Personal history of nicotine dependence; Z08 Encounter for follow-up examination after completed treatment for malignant neoplasm; Z85.118 Personal history of other malignant neoplasm of bronchus and lung; Z90.2 Acquired absence of lung [part of]; Z86.73 Personal history of transient ischemic attack (TIA), and cerebral infarction without residual deficits; Z53.9 Procedure and treatment not carried out, unspecified reason
CPT/HCPCS: 36415; 80053; 85025; 99214; 99215

== ENCOUNTER 2023-07-15 11:41 | Oncology outpatient (recurring) (ONCR) | payer OTHER, SELFPAY ==
[2023-07-15 12:15] LABS: Basophils % 0.7 %; Eosinophils # 0.2 10^3/uL (0.0-0.8); Eosinophils % 2.6 %; Hematocrit 37.5 % (37-53); Lymphocytes # 0.7 10^3/uL (0.8-4.8); Lymphocytes % 11.6 %; Mean Corpuscular HGB Conc 32.5 g/dL (30-55); Mean Corpuscular Hemoglobin 31.6 pg (27-33); Mean Corpuscular Volume 97.2 fl (82-101); Mean Platelet Volume 10.1 fL (7.4-10.4); Monocytes # 0.7 10^3/uL (0.2-0.9); Monocytes % 11.6 %; Neutrophils # 4.16 10^3/uL (1.8-7.7); Neutrophils % 72.8 %; Nucleated Red Blood Cells % 0 %; Platelet Count 179 10^3/cmm (157-399); Red Blood Count 3.86 10^6/uL (3.85-5.65); Red Cell Distribution Width 12.3 % (12.1-15.1); White Blood Count 5.71 10^3/uL (3.29-11.43)
[2023-07-15 12:27] LABS: Alanine Aminotransferase 47 U/L (0-41); Albumin Level 3.1 g/dL (3.5-5.2); Alkaline Phosphatase 60 U/L (40-130); Aspartate Amino Transferase 22 U/L (0-40); Blood Urea Nitrogen 15 mg/dL (8-23); Calcium 7.9 mg/dL (8.5-10.5); Carbon Dioxide 28 mmol/L (22-29); Chloride 105 mmol/L (98-107); Globulin 2.2 g/dL (1.3-4.6); Glucose 123 mg/dL (65-115); Osmolality Calculated 294 mOsm/kg (285-295); Sodium 141 mmol/L (136-145); Total Bilirubin 0.4 mg/dL (0.15-1.2); Total Protein 5.3 g/dL (6.6-8.7)
== END 2023-07-30 23:59 | disposition home or self-care (01) ==
PROVIDERS: PCP Emergency Medicine Emergency Medical Services; Visit Provider Internal Medicine Medical Oncology
DX: C71.6 Malignant neoplasm of cerebellum; Z87.891 Personal history of nicotine dependence; Z85.118 Personal history of other malignant neoplasm of bronchus and lung; Z90.2 Acquired absence of lung [part of]; Z86.73 Personal history of transient ischemic attack (TIA), and cerebral infarction without residual deficits; C79.71 Secondary malignant neoplasm of right adrenal gland; Z79.69 Long term (current) use of other immunomodulators and immunosuppressants; Z79.899 Other long term (current) drug therapy
CPT/HCPCS: 36415; 80053; 85025; 99214

== ENCOUNTER 2023-08-10 07:34 | Outpatient (CLI) | payer OTHER, SELFPAY ==
[2023-08-10] MEDS: iohexol 350 mg/mL 500 mL Btl (per mL) PO (07:43)
--- NOTE | 2023-08-10 09:00 | CT_ITS ---
WS: [id number] CT CHEST, ABDOMEN, AND PELVIS TECHNIQUE: Contrast-enhanced CT of the chest, abdomen, and pelvis with coronal and sagittal reformatt ed images. CLINICAL INFORMATION: follow up lung cancer COMPARISON: CT 05/06/2023 and PET/CT 01/10/23 DLP: 1080.[address] scans at [facility] use at least one of these dose optimization techniques: automated e xposure control; mA and/or kV adjustment per patient size (includes targeted exams where dose is matc hed to clinical indication); or iterative reconstruction. CT CHEST: 6 mm RIGHT hilar nodule seen on the PET/CT with low-grade activity at the RIGHT hilum appea rs unchanged. Chronic elevation LEFT diaphragm. Chronic emphysematous changes. No acute pulmonary infiltrates. No focal pneumonia or pleural fluid. N o new suspicious pulmonary parenchymal abnormalities. Calcified granuloma LEFT upper lobe. Stable LEF T chest wall lipoma with coarse calcifications. Thoracic aortic calcification. Proximal main pulmonar y arteries are normal. No mediastinal or hilar lymphadenopathy. Coronary calcification. No axillary l ymphadenopathy. Mild thoracic curve. Mild thoracic kyphosis. CT ABDOMEN AND PELVIS: Nodular RIGHT adrenal metastasis appears slightly progressed compared to 05/06/2023 today measuring 5. 5 x 3.2 cm compared to 5.2 x 2.4 cm by my measurements Normal LEFT adrenal gland. Diffuse fatty infiltration of the liver. Normal portal vein and splenic ve in. Normal spleen. Normal GE junction. Air-fluid level in the stomach. Celiac and SMA are patent. Aor tic calcification. Normal renal parenchymal enhancement. No hydronephrosis. Simple RIGHT renal cyst. No periaortic lymphadenopathy. Heterogeneously enhancing nodular prostate measuring 2.9 x 5.4 cm. Rec ommend correlation PSA. This is similar to previous. Dense sigmoid constipation. Sigmoid diverticulos is. Disc space narrowing worse at L5-S1. IMPRESSION:. 1. Stable 6 mm RIGHT hilar nodule on the prior PET/CT 2. Otherwise no new chest findings. 3. Nodule RIGHT adrenal metastasis slightly progressed compared to 05/06/2023 with increased nodulari ty and increase in size of 1 to 2 cm 4. No other evidence of disease progression
[2023-08-10] MEDS: iohexol 350 mg/mL 500 mL Btl (per mL) IV (09:16)
== END 2023-08-10 07:35 | disposition home or self-care (01) ==
LOC: RAD 07:34
PROVIDERS: PCP Emergency Medicine Emergency Medical Services; Visit Provider Internal Medicine Medical Oncology
DX: C71.6 Malignant neoplasm of cerebellum (principal); C34.12 Malignant neoplasm of upper lobe, left bronchus or lung; C79.71 Secondary malignant neoplasm of right adrenal gland; R91.1 Solitary pulmonary nodule; Z87.891 Personal history of nicotine dependence; Z92.21 Personal history of antineoplastic chemotherapy; Z92.3 Personal history of irradiation; Z79.52 Long term (current) use of systemic steroids
CPT/HCPCS: 71260; 74177; 99214; Q9967

== ENCOUNTER 2023-08-10 13:39 | Oncology outpatient (recurring) (ONCR) | payer OTHER, SELFPAY ==
[2023-08-10 13:59] LABS: Basophils % 0.1 %; Eosinophils # 0.1 10^3/uL (0.0-0.8); Eosinophils % 0.4 %; Hematocrit 43.7 % (37-53); Lymphocytes # 1.3 10^3/uL (0.8-4.8); Lymphocytes % 9.5 %; Mean Corpuscular Hemoglobin 31.5 pg (27-33); Mean Corpuscular Volume 98.4 fl (82-101); Mean Platelet Volume 9.4 fL (7.4-10.4); Monocytes # 1.3 10^3/uL (0.2-0.9); Monocytes % 9.5 %; Neutrophils # 10.71 10^3/uL (1.8-7.7); Neutrophils % 78.6 %; Nucleated Red Blood Cells % 0 %; Platelet Count 190 10^3/cmm (157-399); Red Blood Count 4.44 10^6/uL (3.85-5.65); Red Cell Distribution Width 13.2 % (12.1-15.1); White Blood Count 13.65 10^3/uL (3.29-11.43)
[2023-08-10 14:28] LABS: Alanine Aminotransferase 31 U/L (0-41); Albumin Level 3.3 g/dL (3.5-5.2); Alkaline Phosphatase 55 U/L (40-130); Anion Gap 12.8 (5-19); Aspartate Amino Transferase 14 U/L (0-40); Blood Urea Nitrogen 21 mg/dL (8-23); Calcium 7.7 mg/dL (8.5-10.5); Carbon Dioxide 28 mmol/L (22-29); Chloride 103 mmol/L (98-107); Globulin 1.9 g/dL (1.3-4.6); Glucose 62 mg/dL (65-115); Osmolality Calculated 291 mOsm/kg (285-295); Potassium 3.8 mmol/L (3.5-5.1); Sodium 140 mmol/L (136-145); Total Bilirubin 0.3 mg/dL (0.15-1.2); Total Protein 5.2 g/dL (6.6-8.7)
== END 2023-08-30 23:59 | disposition home or self-care (01) ==
PROVIDERS: PCP Emergency Medicine Emergency Medical Services; Visit Provider Internal Medicine Medical Oncology
DX: C71.6 Malignant neoplasm of cerebellum (principal)
CPT/HCPCS: 36415; 80053; 85025

== ENCOUNTER 2023-09-04 06:09 | Emergency (ER) | payer OTHER, SELFPAY ==
[2023-09-04 06:15] VITALS: BP 155/96; PULSE 113; RESP 18; TEMP 36.7; O2SAT 95
[2023-09-04 06:28] LABS: Basophils # 0.1 10^3/uL (0.0-0.1); Basophils % 0.7 %; Eosinophils # 0.1 10^3/uL (0.0-0.8); Eosinophils % 0.6 %; Hematocrit 44.1 % (37-53); Lymphocytes # 1.6 10^3/uL (0.8-4.8); Lymphocytes % 16.7 %; Mean Corpuscular HGB Conc 33.6 g/dL (30-55); Mean Corpuscular Hemoglobin 32.2 pg (27-33); Mean Corpuscular Volume 95.9 fl (82-101); Mean Platelet Volume 9.1 fL (7.4-10.4); Monocytes # 0.8 10^3/uL (0.2-0.9); Monocytes % 8.6 %; Neutrophils # 6.65 10^3/uL (1.8-7.7); Neutrophils % 70.5 %; Nucleated Red Blood Cells % 0 %; Platelet Count 199 10^3/cmm (157-399); Red Cell Distribution Width 13.1 % (12.1-15.1); White Blood Count 9.44 10^3/uL (3.29-11.43)
[2023-09-04 06:39] LABS: Add Urine Microscopic? NO; Charge for UA Resulting for Rev
[2023-09-04 06:40] VITALS: BP 107/82; PULSE 96; O2SAT 96
[2023-09-04 06:49] LABS: Alanine Aminotransferase 46 U/L (0-41); Albumin Level 3.4 g/dL (3.5-5.2); Alkaline Phosphatase 71 U/L (40-130); Anion Gap 17.1 (5-19); Aspartate Amino Transferase 16 U/L (0-40); Blood Urea Nitrogen 20 mg/dL (8-23); Calcium 8.3 mg/dL (8.5-10.5); Carbon Dioxide 25 mmol/L (22-29); Chloride 101 mmol/L (98-107); Creatinine Clr Calc Pharmacy 63.3211; Globulin 2.4 g/dL (1.3-4.6); Glucose 130 mg/dL (65-115); Lipase 22 U/L (13-60); Osmolality Calculated 292 mOsm/kg (285-295); Potassium 4.1 mmol/L (3.5-5.1); Sodium 139 mmol/L (136-145); Total Bilirubin 0.6 mg/dL (0.15-1.2); Total Protein 5.8 g/dL (6.6-8.7)
[2023-09-04 06:56] LABS: Bilirubin Urine Neg (Negative); Blood Urine Neg (Negative); Glucose Urine UA Norm (Normal); Ketones Urine Negative (Negative); Leukocyte Esterase Urine Negative (Negative); Nitrate Urine Negative (Negative); Protein Urine Neg (Negative); Urine Appearance Clear (CLEAR); Urine Color Yellow (Yellow); Urobilinogen Urine Neg (Negative); pH Urine 5 (5-7)
--- NOTE | 2023-09-04 07:01 | ED_ITS ---
HPI - Abdominal Pain 2 General: Chief Complaint: Abdominal Pain Stated Complaint: abd pain Time Seen by Provider: 09/04/23 06:13 Source: patient Mode of arrival: ambulatory History of Present Illness: 73-year-old male presents emergency room with complaint of abdominal pain that began 2 days ago. Localizes it to the right lower quadrant. He states it is worse when he takes a deep breath is pinpoint sharp pain right lower quadrant at that point. He denies dysuria urgency or frequency or hematuria no nausea vomiting or diarrhea bowel and bladder function has been normal for him. MD elicited complaint: abdominal pain Quality: cramping Exacerbating factors: nothing Relieving factors: nothing Associated Symptoms: Denies anorexia, belching, bloating, change in bowel habits, change in stool character, chills, coffee ground emesis, constipation, GI cramping, diarrhea, dyspepsia, dysuria, excessive flatus, fever(s), heartburn, hematochezia, hematuria, hematemesis, fecal incontinence, loose stools, melena, nausea, poor appetite, syncope and vomiting Review of Systems 2 Const: Denies: fever(s) or chills Card: Denies: chest pain or syncope Resp: Denies: dyspnea GI: Reports: abdominal pain; Denies: nausea, vomiting, hematemesis, coffee ground emesis, heartburn, diarrhea, constipation, bloating, GI cramping, belching, excessive flatus, fecal incontinence, change in bowel habits, change in stool character, hematochezia or melena : Denies: dysuria, urinary frequency, urinary urgency, difficulty starting urination or hematuria Musc: Denies: neck pain or back pain Skin/Breast: Denies: rash PFSH ED 2 PFSH: Medical History 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, left bronchus or lung LISS (obstructive sleep apnea) COPD (chronic obstructive pulmonary disease) History of nonmelanoma skin cancer Hypercholesteremia Surgical History Hx of colonoscopy History of esophagogastroduodenoscopy (EGD) Status post lobectomy of lung (04/16/21) Left upper lobectomy Family History Other CAD (coronary artery disease) Cancer Denies family history of Diabetes Stroke Social History Smoking and tobacco/nicotine status: former use of tobacco/nicotine (smoked x 40+ years) Quit status (tobacco/nicotine): has quit using Year quit tobacco: 2010 Former quit date comment: 1.5ppd x 50 years Alcohol intake: former Substance/Drug Use: never Physical Exam 2 Const: GENERAL APPEARANCE: cooperative and comfortable O RIENTATION/CONSCIOUSNESS: Yes awake, Yes oriented to person, Yes oriented to place and Yes oriented to time HENMT: COMMON NORMALS: normocephalic, atraumatic and hearing grossly normal bilaterally HEAD & SCALP: normocephalic and atraumatic Resp: COMMON NORMALS: normal respiratory effort, No retractions, No use of accessory muscles and clear to auscultation bilaterally AUSCULTATION: clear to auscultation bilaterally Cardio: COMMON NORMALS: regular rate, regular rhythm and No murmurs present (Cardio) RATE: regular rate RHYTHM: regular rhythm GI: COMMON NORMALS: Soft to palpation and No hepatosplenomegaly present A USCULTATION: Yes normoactive bowel sounds PALPATION: Yes Soft to palpation, No Tenderness to palpation present (GI), No Guarding due to palpation present (GI) and Yes No hepatosplenomegaly present Extremity: COMMON NORMALS: normal to inspection, capillary refill normal, no clubbing, cyanosis or edema, no calf tenderness and no pedal edema Neuro: SENSORIUM/ORIENTATION: Yes oriented to person, Yes oriented to place and Yes oriented to time Skin: COMMON NORMALS: no rashes or lesions noted GENERAL SKIN EXAM: no rashes or lesions noted Course 2 Vital Signs: Vital signs: Vital Signs Temperature 98.0 F 09/04/23 06:15 Pulse Rate 96 09/04/23 09:26 Respiratory Rate 18 09/04/23 06:15 Blood Pressure 107/82 09/04/23 09:26 Pulse Oximetry 96 09/04/23 09:26 Oxygen Delivery Me thod Room Air 09/04/23 06:40 MDM - Abdominal Pain Medical Decision Making Labs and imaging reviewed. Chart reviewed as well. Patient has a history of non-small cell lung CA with metastasis known metastasis right renal gland has increased in size since previous imaging. His pain is elicited by taking a deep breath and it is from the injury normal and has no others signs of significant abnormality on the CT. Will discharge him home with hydrocodone discussed Dr. Bill patient has an upcoming appointment to [place] to help manage his cerebellar lesion Dr. Bill is going to try to make arrangements for him to see someone who may be able to resect that adrenal gland as well. Medical Records I reviewed the patient's medical records. Lab Data I reviewed the patient's lab results. 09/04/23 06:21 09/04/23 06:21 Labs/Radiology: Radiology Impressions Abdomen/Pelvis CT 09/04/23 07:04 IMPRESSION: 1. Trace bibasilar atelectasis or scar. 2. Irregular lobulated mass involving the right adrenal gland measuring 6.3 x 4.3 x 5.1 cm has slightly increased in size since prior exam. A small amount of fluid and fatty stranding is seen adjacent to the site and extending to the liver edge may represent a small amount of hemorrhage and was not seen on prior exam. 3. There is nonspecific urinary bladder wall thickening, under distention versus cystitis. COMMENTS: Consistent with the [employer]'s Incidental Findings Committee white paper (J Am Guilherme Radiol 2018): Any incidental renal lesion less than 1 cm or classified as too small to characterize, or any incidental cystic renal lesion characterized as simple-appearing, is likely benign. No follow-up imaging is recommended for these lesions per consensus recommendations based on imaging criteria. Laboratory Results WBC 9.44 10^3/uL (3.29-11.43) 09/04/23 06:21 RBC 4.60 10^6/uL (3.85-5.65) 09/04/23 06:21 Hgb 14.80 g/dL (11.27-16.99) 09/04/23 06:21 Hct 44.1 % (37-53) 09/04/23 06:21 MCV 95.9 fl (82-101) 09/04/23 06:21 MCH 32.2 pg (27-33) 09/04/23 06:21 MCHC 33.6 g/dL (30-55) 09/04/23 06:21 RDW 13.1 % (12.1-15.1) 09/04/23 06:21 Plt Count 199 10^3/cmm (157-399) 09/04/23 06:21 MPV 9.1 fL (7.4-10.4) 09/04/23 06:21 Neut % (Auto) 70.5 % 09/04/23 06:21 Lymph % (Auto) 16.7 % 09/04/23 06:21 [place] % (Auto) 8.6 % 09/04/23 06:21 Eos % (Auto) 0.6 % 09/04/23 06:21 Baso % (Auto) 0.7 % 09/04/23 06:21 Neut # (Auto) 6.65 10^3/uL (1.8-7.7) 09/04/23 06:21 Lymph # (Auto) 1.6 10^3/uL (0.8-4.8) 09/04/23 06:21 [place] # (Auto) 0.8 10^3/uL (0.2-0.9) 09/04/23 06:21 Eos # (Auto) 0.1 10^3/uL (0.0-0.8) 09/04/23 06:21 Baso # (Auto) 0.1 10^3/uL (0.0-0.1) 09/04/23 06:21 Nucleated RBC % (auto) 0 % 09/04/23 06:21 Nucleated RBCs # 0.0 /100WBC 09/04/23 06:21 Sodium 139 mmol/L (136-145) 09/04/23 06:21 Potassium 4.1 mmol/L (3.5-5.1) 09/04/23 06:21 Chloride 101 mmol/L (98-107) 09/04/23 06:21 Carbon Dioxide 25 mmol/L (22-29) 09/04/23 06:21 Anion Gap 17.1 (5-19) 09/04/23 06:21 BUN 20 mg/dL (8-23) 09/04/23 06:21 Creatinine 1.1 mg/dL (0.7-1.2) 09/04/23 06:21 GFR Calculation Not Reportable 09/04/23 06:21 Glucose 130 mg/dL (65-115) H 09/04/23 06:21 Calculated Osmolality 292 mOsm/kg (285-295) 09/04/23 06:21 Calcium 8.3 mg/dL (8.5-10.5) L 09/04/23 06:21 Total Bilirubin 0.6 mg/dL (0.15-1.2) 09/04/23 06:21 AST 16 U/L (0-40) 09/04/23 06:21 ALT 46 U/L (0-41) H 09/04/23 06:21 Alkaline Phosphatase 71 U/L (40-130) 09/04/23 06:21 Total Protein 5.8 g/dL (6.6-8.7) L 09/04/23 06:21 Albumin 3.4 g/dL (3.5-5.2) L 09/04/23 06:21 Globulin 2.4 g/dL (1.3-4.6) 09/04/23 06:21 Lipase 22 U/L (13-60) 09/04/23 06:21 Urine Color Yellow (Yellow) 09/04/23 06:29 Urine Appearance Clear (CLEAR) 09/04/23 06:29 Urine pH 5 (5-7) 09/04/23 06:29 Ur Specific [place] 1.020 (1.005-1.030) 09/04/23 06:29 Urine Protein Neg (Negative) 09/04/23 06:29 Urine Glucose (UA) Norm (Normal) 09/04/23 06:29 Urine Ketones Negative (Negative) 09/04/23 06:29 Urine Blood Neg (Negative) 09/04/23 06:29 Urine Nitrate Negative (Negative) 09/04/23 06:29 Urine Bilirubin Neg (Negative) 09/04/23 06:29 Urine Urobilinogen Neg mg/dL (Negative) 09/04/23 06:29 Ur Leukocyte Esterase Negative (Negative) 09/04/23 06:29 All radiology interpretation(s) finalized by discharge Discharge Plan Discharge Patient Disposition: Home Clinical Impression: Malignant neoplasm of upper lobe, left bronchus or lung, Abdominal pain, Adrenal mass Condition: Stable Prescriptions: New hydrocodone-acetaminophen 5-325 mg tablet 1 tab PO Q6H PRN (Reason: pain) Qty: 25 0RF No Action citalopram 20 mg tablet 20 mg PO QPM simvastatin 40 mg tablet 40 mg PO DAILY prochlorperazine maleate [Compazine] 10 mg tablet 10 mg PO Q8H PRN (Reason: nausea and vomiting) Qty: 30 2RF capmatinib 200 mg tablet 400 mg PO BID Qty: 120 11RF Rx Instructions: Take with or without food. Swallow tablets whole. Do not break, crush or chew the tablets. Zyrtec 10 mg Tablet 10 mg PO DAILY Tylenol Ex Str Rapid Release 500 mg Tablet 1,000 mg PO Q6H PRN (Reason: Pain) dexamethasone 1 mg tablet See Rx Instructions .ROUTE .COMPLEX Rx Instructions: titirating dose as directed Benadryl Allergy 25 mg Tablet 25 mg PO BEDTIME Turmeric Curcumin 1 tab PO BID lorazepam 1 mg tablet 0.5 - 1 mg PO Q8H PRN (Reason: severe nausea/vomiting) Discharge Orders: Discharge ED (Routine); Ordered 09/04/23 Ordered By: David Panda Referrals: Eliel Corley DO [Primary Care Provider] - Discharge Diet: Usual diet Discharge Activity: Increase activity as tolerated Patient Instructions: Abdominal Pain (ED), Opioid Safety, Pain Management Activity Restrictions/Additional Instructions: Thank you for choosing [facility] for your healthcare needs today. Please realize this is an emergency room and that we are providing you with a medical screening exam and this may not be complete and all inclusive of all the testing and or work up that you may need to determine your ailment or severity of your illness. It is very important that you follow up as instructed or that you return to the Emergency Department should you have concerns or if your condition changes or worsens in any way. You are seen today for abdominal pain CT shows enlargement of the right adrenal mass which is likely the cause of your discomfort. This is most likely metastasis from your lung cancer. I discussed Dr. Bill contact his office and he will help arrange for follow-up to address this mass. In the interim we have given you pain medication to use as needed. Coding Level of Care Code ED Customer Relations Representative for [employer]
--- NOTE | 2023-09-04 07:04 | CTR_ITS ---
PROCEDURE INFORMATION: Exam: CT Abdomen And Pelvis Without Contrast Exam date and time: 09/04/2023 7:34 AM Age: 73 years old Clinical indication: Abdominal pain; Flank; Right; Prior surgery; Surgery date: 6+ months; Surgery type: Left upper lung; Additional info: Flank pain TECHNIQUE: Imaging protocol: Computed tomography of the abdomen and pelvis without contrast. Total images: 31 Radiation optimization: All CT scans at this facility use at least one of these dose optimization techniques: automated exposure control; mA and/or kV adjustment per patient size (includes targeted exams where dose is matched to clinical indication); or iterative reconstruction. COMPARISON: CT chest abdpel w/*[id number] 08/10/2023 9:06 AM RADIATION DOSE METRICS: Total DLP (mGy-cm): 707.4 FINDINGS: Lungs: Trace bibasilar atelectasis or scar. Liver: See Adrenal glands finding. Gallbladder and bile ducts: Normal. No calcified stones. No ductal dilation. Pancreas: Normal. No ductal dilation. Spleen: Normal. No splenomegaly. Adrenal glands: Irregular lobulated mass involving the right adrenal gland measuring 6.3 x 4.3 x 5.1 cm has slightly increased in size since prior exam. A small amount of fluid and fatty stranding is seen adjacent to the site and extending to the liver edge may represent a small amount of hemorrhage and was not seen on prior exam. Kidneys and ureters: 1.8 cm largest cyst noted in kidneys that have multiple simple renal cysts. No further evaluation required. Stomach and bowel: Unremarkable. No obstruction. No mucosal thickening. Appendix: No evidence of appendicitis. Intraperitoneal space: Unremarkable. No free air. No significant fluid collection. Vasculature: Incidental phleboliths noted. Lymph nodes: Unremarkable. No enlarged lymph nodes. Urinary bladder: There is nonspecific urinary bladder wall thickening, under distention versus cystitis. Reproductive: Unremarkable as visualized. Bones/joints: Disc degeneration is most notable at L5/S1. Soft tissues: Bilateral fat-containing inguinal hernia. Other findings: Moderate atherosclerotic disease burden is evident. CT/CT kidney stone [id number] IMPRESSION: 1. Trace bibasilar atelectasis or scar. 2. Irregular lobulated mass involving the right adrenal gland measuring 6.3 x 4.3 x 5.1 cm has slightly increased in size since prior exam. A small amount of fluid and fatty stranding is seen adjacent to the site and extending to the liver edge may represent a small amount of hemorrhage and was not seen on prior exam. 3. There is nonspecific urinary bladder wall thickening, under distention versus cystitis. COMMENTS: Consistent with the [employer]'s Incidental Findings Committee white paper (J Am Guilherme Radiol 2018): Any incidental renal lesion less than 1 cm or classified as too small to characterize, or any incidental cystic renal lesion characterized as simple-appearing, is likely benign. No follow-up imaging is recommended for these lesions per consensus recommendations based on imaging criteria.
--- NOTE | 2023-09-04 07:11 | PC.PHAR ---
pts verified pts medications-pts states the pt just finished a titrating dose of dexamethasone on thu09/02/23 states the pt finished with 1.5 tab daily states pt had been titrating for 5-6 weeks-pts states the pt only takes the medications entered faxed [facility] for med list also
[2023-09-04 09:26] VITALS: BP 107/82; PULSE 96; O2SAT 96
== END 2023-09-04 09:27 | disposition home or self-care (01) ==
PROVIDERS: Emergency Provider Family Medicine; PCP Emergency Medicine Emergency Medical Services
DX: R10.31 Right lower quadrant pain (principal); C34.12 Malignant neoplasm of upper lobe, left bronchus or lung; E27.9 Disorder of adrenal gland, unspecified; Z87.891 Personal history of nicotine dependence; Z85.841 Personal history of malignant neoplasm of brain; J44.9 Chronic obstructive pulmonary disease, unspecified
CPT/HCPCS: 74176; 80053; 81003; 83690; 85025; 99284

== ENCOUNTER 2023-09-24 12:06 | Oncology outpatient (recurring) (ONCR) | payer OTHER, SELFPAY ==
[2023-09-24 13:03] LABS: Basophils % 0.5 %; Eosinophils % 0.5 %; Hematocrit 38.2 % (37-53); Lymphocytes # 0.8 10^3/uL (0.8-4.8); Lymphocytes % 11.3 %; Mean Corpuscular Hemoglobin 31.7 pg (27-33); Mean Corpuscular Volume 93.2 fl (82-101); Mean Platelet Volume 9.5 fL (7.4-10.4); Monocytes # 0.8 10^3/uL (0.2-0.9); Monocytes % 10.4 %; Neutrophils # 5.53 10^3/uL (1.8-7.7); Neutrophils % 75.5 %; Nucleated Red Blood Cells % 0 %; Platelet Count 295 10^3/cmm (157-399); Red Cell Distribution Width 13.1 % (12.1-15.1); White Blood Count 7.33 10^3/uL (3.29-11.43)
[2023-09-24 13:20] LABS: Alanine Aminotransferase 66 U/L (0-41); Albumin Level 2.9 g/dL (3.5-5.2); Alkaline Phosphatase 148 U/L (40-130); Carbon Dioxide 28 mmol/L (22-29); Chloride 102 mmol/L (98-107); Globulin 2.6 g/dL (1.3-4.6); Glucose 191 mg/dL (65-115); Sodium 138 mmol/L (136-145); Total Bilirubin 0.4 mg/dL (0.15-1.2); Total Protein 5.5 g/dL (6.6-8.7)
[2023-09-24 13:37] LABS: Aspartate Amino Transferase 46 U/L (0-40); Blood Urea Nitrogen 10 mg/dL (8-23); Calcium 8.3 mg/dL (8.5-10.5); Creatinine Clr Calc Pharmacy 78.5514; Osmolality Calculated 290 mOsm/kg (285-295)
== END 2023-09-29 23:59 | disposition home or self-care (01) ==
PROVIDERS: PCP Emergency Medicine Emergency Medical Services; Visit Provider Internal Medicine Medical Oncology
DX: Z53.9 Procedure and treatment not carried out, unspecified reason; C71.6 Malignant neoplasm of cerebellum; C34.12 Malignant neoplasm of upper lobe, left bronchus or lung; E27.8 Other specified disorders of adrenal gland
CPT/HCPCS: 36415; 80053; 85025; 99214

== ENCOUNTER 2023-09-29 10:05 | Emergency (ER) | payer OTHER, SELFPAY ==
[2023-09-29 10:15] VITALS: BP 129/87; PULSE 115; RESP 20; TEMP 36.6; O2SAT 94
--- NOTE | 2023-09-29 11:37 | XRR_ITS ---
PROCEDURE INFORMATION: Exam: XR Right Hand Exam date and time: 09/29/2023 12:02 PM Age: 73 years old Clinical indication: Pain and injury or trauma; Fall; Blunt trauma (contusions or hematomas); Hand; Right; Additional info: Pain/fall TECHNIQUE: Imaging protocol: Radiologic exam of the right hand. Views: 3 or more views. COMPARISON: No relevant prior studies available. FINDINGS: Bones/joints: No acute fracture or dislocation. Mild chronic degenerative changes of the distal interphalangeal joints, consistent with osteoarthritis. Soft tissues: Superficial soft tissues are within normal limits. XR/XR hand RT min 3V* [id number] IMPRESSION: No acute fracture or dislocation.
--- NOTE | 2023-09-29 11:37 | XR_ITS ---
WS: [id number] XR ribs BI 3V* [id number] REASON FOR EXAM: fall FINDINGS: RIGHT RIBS: No rib fracture is identified. No other rib abnormality noted. Underlying lung and pleura demonstrate no acute abnormality. LEFT RIBS: There is deformity of the posterior lateral left 10th rib which appears to be an old healed fracture. No definite acute left rib fractures identified. Left hemithorax is postoperative with no acute abnormality identified. XR/XR ribs BI 3V* [id number] IMPRESSION: No acute abnormality.
--- NOTE | 2023-09-29 11:38 | ECG_ITS ---
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 Measurements Intervals [place] Rate: 114 P: 72 UT: 140 QRS: 12 QRSD: 98 T: 24 QT: 328 QTc: 453 Interpretive Statements SINUS TACHYCARDIA Compared to ECG 04/08/2021 09:17:48 Sinus rhythm no longer present Electronically Signed On 09-29-2023 17:18:18 CDT by Raymond Marin M.D. [email or web address]
--- NOTE | 2023-09-29 13:05 | ED_ITS ---
HPI - Nausea/Vomiting/Diarrhea 2 General: Chief complaint: Nausea/Vomiting/Diarrhea Stated complaint: Dizzy, fall, rib pain Time Seen by Provider: 09/29/23 11:45 History of Present Illness: 73-year-old male presents emergency depa rtment with his . The patient states that he had an accidental fall and feels like he may have pulled a rib on the left side. He states the pain is a dull 2 out of 10 aching type pain that is reproducible. He states he is not having any difficulty breathing he does see oncology here and states that his heart rate was slightly high. He has recently been taken off of his chemotherapy pill 1 week ago. He states he is continued to have nausea and dry heaves. He states he has not been eating very much because he has been feeling nauseated. He denies increased shortness of breath dizziness or lightheaded feeling. 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, left bronchus or lung LISS (obstructive sleep apnea) COPD (chronic obstructive pulmonary disease) History of nonmelanoma skin cancer Hypercholesteremia Surgical History Hx of colonoscopy History of esophagogastroduodenoscopy (EGD) Status post lobectomy of lung (04/16/21) Left upper lobectomy Family History Other CAD (coronary artery disease) Cancer Denies family history of Diabetes Stroke Social History Smoking and tobacco/nicotine status: former use of tobacco/nicotine (smoked x 40+ years) Quit status (tobacco/nicotine): has quit using Year quit tobacco: 2010 Former quit date comment: 1.5ppd x 50 years Alcohol intake: former Substance/Drug Use: never Physical Exam 2 Narrative: EXAM NARRATIVE: Constitutional: the patient appears well nourished and of normal development. Vital signs as documented. No acute distress at present. Alert and oriented-to person, place, time and situation. He does use a cane to ambulate and did ambulate from the wheelchair to the exam bed without difficulty. Head, eyes, ears, nose, mouth, throat: Normocephalic, atraumatic. Pupils-equal, round, reactive to light. No scleral icterus. Normal-appearing external ears. Normal appearing nasal turbinates, no drainage. No obvious oral lesions, posterior oropharynx without erythema or exudates. Neck: Supple, trachea is midline, no lymphadenopathy, no jugular venous distension, thyromegaly, or carotid bruits. Carotid upstrokes are brisk bilaterally. Normal alignment, nontender to palpation, no step-offs, no crepitus, no reproducible pain with flexion, extension or lateral rotation. Lungs: clear to auscultation to all lung macias. Symmetrical rise and fall of chest, no obvious signs of increased work of breathing at present. Cardiac: Sinus tachycardia,, positive S1, S2. No murmurs, rubs or gallops that I can appreciate Abdomen: Soft, non-tender to palpation, normal active bowel sounds to all quadrants. No palpable masses, no organomegaly and abdominal bruits. Extremities: 2+ pulses in the upper extremities that are equal bilaterally, 2+ pulses in the lower extremities that are equal bilaterally. Non-edematous. Moves all extremities well, sensation to all extremities are noted. Skin: Warm, dry, intact. Thorax: Left anterior lateral rib tender to palpation no obvious deformity or discoloration. Posterior thorax is intact symmetrical rise and fall, Back: Normal alignment, no palpable tenderness, no palpable step-offs no crepitus. Course 2 Vital Signs: Vital signs: Vital Signs Temperature 97.8 F 09/29/23 10:15 Pulse Rate 107 H 09/29/23 13:23 Respiratory Rate 18 09/29/23 13:23 Blood Pressure 158/106 09/29/23 13:23 Pulse Oximetry 92 09/29/23 13:23 Oxygen Delivery Me thod Room Air 09/29/23 13:23 MDM - Nausea/Vomiting/Diarrhea Medical Decision Making Physical exam completed and documented I we will obtain a CBC and CMP provide Zofran for his dry heaves which I suspect are related to his chemotherapy. I did obtain a bilateral rib plain film that does not demonstrate any acute fractures, and x-ray of the right hand did not demonstrate any acute abnormalities. I did discuss the laboratory findings with the patient and his and specifically the elevated AST at 67 ALT of 68 alkaline phosphatase of 255 and the patient's low total protein and albumin levels. I did encourage supplemental protein shakes as well as stool softener senna S. I did send a prescription to the patient's pharmacy for Zofran antinausea medication to assist in his continued nausea. Medical Records I reviewed the patient's medical records. Lab Data I reviewed the patient's lab results. 09/29/23 12:56 09/29/23 12:56 Radiology Impressions Hand X-Ray 09/29/23 11:37 IMPRESSION: No acute fracture or dislocation. Ribs X-Ray 09/29/23 11:37 IMPRESSION: No acute abnormality. Laboratory Results WBC 12.98 10^3/uL (3.29-11.43) H 09/29/23 12:56 RBC 4.38 10^6/uL (3.85-5.65) 09/29/23 12:56 Hgb 13.60 g/dL (11.27-16.99) 09/29/23 12:56 Hct 40.4 % (37-53) 09/29/23 12:56 MCV 92.2 fl (82-101) 09/29/23 12:56 MCH 31.1 pg (27-33) 09/29/23 12:56 MCHC 33.7 g/dL (30-55) 09/29/23 12:56 RDW 13.1 % (12.1-15.1) 09/29/23 12:56 Plt Count 307 10^3/cmm (157-399) 09/29/23 12:56 MPV 9.6 fL (7.4-10.4) 09/29/23 12:56 Neut % (Auto) 79.9 % 09/29/23 12:56 Lymph % (Auto) 6.9 % 09/29/23 12:56 [place] % (Auto) 11.5 % 09/29/23 12:56 Eos % (Auto) 0.1 % 09/29/23 12:56 Baso % (Auto) 0.4 % 09/29/23 12:56 Neut # (Auto) 10.39 10^3/uL (1.8-7.7) H 09/29/23 12:56 Lymph # (Auto) 0.9 10^3/uL (0.8-4.8) 09/29/23 12:56 [place] # (Auto) 1.5 10^3/uL (0.2-0.9) H 09/29/23 12:56 Eos # (Auto) 0.0 10^3/uL (0.0-0.8) 09/29/23 12:56 Baso # (Auto) 0.1 10^3/uL (0.0-0.1) 09/29/23 12:56 Nucleated RBC % (auto) 0 % 09/29/23 12:56 Nucleated RBCs # 0.0 /100WBC 09/29/23 12:56 Sodium 135 mmol/L (136-145) L 09/29/23 12:56 Potassium 4.1 mmol/L (3.5-5.1) 09/29/23 12:56 Chloride 97 mmol/L (98-107) L 09/29/23 12:56 Carbon Dioxide 27 mmol/L (22-29) 09/29/23 12:56 Anion Gap 15.1 (5-19) 09/29/23 12:56 BUN 11 mg/dL (8-23) 09/29/23 12:56 Creatinine 0.9 mg/dL (0.7-1.2) 09/29/23 12:56 GFR Calculation Not Reportable 09/29/23 12:56 Glucose 129 mg/dL (65-115) H 09/29/23 12:56 Calculated Osmolality 281 mOsm/kg (285-295) L 09/29/23 12:56 Lactic Acid 1.8 mmol/L (0.5-2.2) 09/29/23 12:56 Calcium 9.0 mg/dL (8.5-10.5) 09/29/23 12:56 Total Bilirubin 0.6 mg/dL (0.15-1.2) 09/29/23 12:56 AST 67 U/L (0-40) H 09/29/23 12:56 ALT 68 U/L (0-41) H 09/29/23 12:56 Alkaline Phosphatase 255 U/L (40-130) H 09/29/23 12:56 Total Protein 6.3 g/dL (6.6-8.7) L 09/29/23 12:56 Albumin 3.2 g/dL (3.5-5.2) L 09/29/23 12:56 Globulin 3.1 g/dL (1.3-4.6) 09/29/23 12:56 Lipase 11 U/L (13-60) L 09/29/23 12:56 All radiology interpretation(s) finalized by discharge EKG Data EKG 1: Interpretation: Twelve-lead EKG obtained at 1024 and reviewed at 1105 demonstrates sinus tachycardia, ventricular rate of 114, MS interval 140, QRS duration 98, QT 328, QTc 396. There is no significant ST elevation or depression at present to demonstrate acute ischemia or infarction. The computer generated interpretation at the top of the twelve-lead EKG is incorrect and I do not agree with its interpretation. Discharge Plan Discharge Patient Disposition: Home Clinical Impression: Contusion of left front wall of thorax, Accidental fall, Hand pain, right, Nausea in adult patient Condition: Stable Prescriptions: New ondansetron HCl 4 mg tablet 4 mg PO Q6H PRN (Reason: nausea and vomiting) Qty: 30 0RF No Action citalopram 20 mg tablet 20 mg PO QPM simvastatin 40 mg tablet 40 mg PO DAILY prochlorperazine maleate [Compazine] 10 mg tablet 10 mg PO Q8H PRN (Reason: nausea and vomiting) Qty: 30 2RF oxycodone 5 mg capsule 5 mg PO Q8H PRN capmatinib 200 mg tablet 400 mg PO BID Qty: 120 11RF Rx Instructions: Take with or without food. Swallow tablets whole. Do not break, crush or chew the tablets. 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
[2023-09-29 13:07] LABS: Basophils # 0.1 10^3/uL (0.0-0.1); Basophils % 0.4 %; Eosinophils % 0.1 %; Hematocrit 40.4 % (37-53); Lymphocytes # 0.9 10^3/uL (0.8-4.8); Lymphocytes % 6.9 %; Mean Corpuscular HGB Conc 33.7 g/dL (30-55); Mean Corpuscular Hemoglobin 31.1 pg (27-33); Mean Corpuscular Volume 92.2 fl (82-101); Mean Platelet Volume 9.6 fL (7.4-10.4); Monocytes # 1.5 10^3/uL (0.2-0.9); Monocytes % 11.5 %; Neutrophils # 10.39 10^3/uL (1.8-7.7); Neutrophils % 79.9 %; Nucleated Red Blood Cells % 0 %; Platelet Count 307 10^3/cmm (157-399); Red Blood Count 4.38 10^6/uL (3.85-5.65); Red Cell Distribution Width 13.1 % (12.1-15.1); White Blood Count 12.98 10^3/uL (3.29-11.43)
[2023-09-29] MEDS: ondansetron 4 MG Tablet PO (13:20)
[2023-09-29 13:22] LABS: Alanine Aminotransferase 68 U/L (0-41); Albumin Level 3.2 g/dL (3.5-5.2); Alkaline Phosphatase 255 U/L (40-130); Anion Gap 15.1 (5-19); Aspartate Amino Transferase 67 U/L (0-40); Blood Urea Nitrogen 11 mg/dL (8-23); Carbon Dioxide 27 mmol/L (22-29); Chloride 97 mmol/L (98-107); Creatinine Clr Calc Pharmacy 77.3924; Globulin 3.1 g/dL (1.3-4.6); Glucose 129 mg/dL (65-115); Lipase 11 U/L (13-60); Osmolality Calculated 281 mOsm/kg (285-295); Potassium 4.1 mmol/L (3.5-5.1); Sodium 135 mmol/L (136-145); Total Bilirubin 0.6 mg/dL (0.15-1.2); Total Protein 6.3 g/dL (6.6-8.7)
[2023-09-29 13:23] VITALS: BP 158/106; PULSE 107; RESP 18; O2SAT 92
[2023-09-29 13:23] LABS: Lactic Sepsis W/Reflex 1.8 mmol/L (0.5-2.2)
== END 2023-09-29 13:52 | disposition home or self-care (01) ==
PROVIDERS: Emergency Provider Internal Medicine; PCP Emergency Medicine Emergency Medical Services
DX: S20.212A Contusion of left front wall of thorax, initial encounter (principal); M79.641 Pain in right hand; R11.0 Nausea; Z87.891 Personal history of nicotine dependence; J44.9 Chronic obstructive pulmonary disease, unspecified; Z85.828 Personal history of other malignant neoplasm of skin; Z85.118 Personal history of other malignant neoplasm of bronchus and lung; Z85.841 Personal history of malignant neoplasm of brain; W19.XXXA Unspecified fall, initial encounter; Z79.60 Long term (current) use of unspecified immunomodulators and immunosuppressants
CPT/HCPCS: 36415; 71110; 73130; 80053; 83605; 83690; 85025; 93005; 99285; Q0162

== ENCOUNTER 2023-10-05 12:35 | Outpatient (CLI) | payer OTHER, SELFPAY ==
[2023-10-05 14:24] LABS: INR 1.04 (0.8-1.2)
== END 2023-10-05 12:36 | disposition home or self-care (01) ==
PROVIDERS: PCP Emergency Medicine Emergency Medical Services; Visit Provider Emergency Medicine Emergency Medical Services
DX: C79.71 Secondary malignant neoplasm of right adrenal gland (principal)
CPT/HCPCS: 36415; 85610

== ENCOUNTER 2023-10-09 11:26 | Oncology outpatient (recurring) (ONCR) | payer SELFPAY ==
[2023-10-09 11:34] VITALS: BP 105/71; PULSE 111; RESP 18; TEMP 36.1; O2SAT 98
[2023-10-09] MEDS: sodium chloride 0.9% 1,000 ML 999 ML IV (11:51)
[2023-10-09 11:53] LABS: Basophils % 0.2 %; Eosinophils % 0.1 %; Hematocrit 40.7 % (37-53); Lymphocytes # 0.8 10^3/uL (0.8-4.8); Lymphocytes % 4.6 %; Mean Corpuscular HGB Conc 32.9 g/dL (30-55); Mean Corpuscular Hemoglobin 30.4 pg (27-33); Mean Corpuscular Volume 92.3 fl (82-101); Mean Platelet Volume 9.6 fL (7.4-10.4); Monocytes # 1.9 10^3/uL (0.2-0.9); Monocytes % 10.7 %; Nucleated Red Blood Cells % 0 %; Platelet Count 390 10^3/cmm (157-399); Red Blood Count 4.41 10^6/uL (3.85-5.65); Red Cell Distribution Width 13.8 % (12.1-15.1); White Blood Count 17.34 10^3/uL (3.29-11.43)
[2023-10-09] MEDS: ipratropium-albuterol 3 mL Neb INHALATION (12:04)
[2023-10-09 12:14] LABS: Alanine Aminotransferase 114 U/L (0-41); Albumin Level 2.6 g/dL (3.5-5.2); Alkaline Phosphatase 890 U/L (40-130); Aspartate Amino Transferase 127 U/L (0-40); Blood Urea Nitrogen 26 mg/dL (8-23); Calcium 8.6 mg/dL (8.5-10.5); Carbon Dioxide 22 mmol/L (22-29); Chloride 96 mmol/L (98-107); Globulin 3.2 g/dL (1.3-4.6); Glucose 119 mg/dL (65-115); Osmolality Calculated 280 mOsm/kg (285-295); Sodium 132 mmol/L (136-145); Total Protein 5.8 g/dL (6.6-8.7)
[2023-10-09 12:17] LABS: Anion Gap 18.4 (5-19); Potassium 4.4 mmol/L (3.5-5.1)
[2023-10-09 13:02] VITALS: BP 136/83; PULSE 105; RESP 16; TEMP 36.7; O2SAT 92
== END 2023-10-12 23:59 | disposition home or self-care (01) ==
PROVIDERS: Nurse Practitioner Family; PCP Emergency Medicine Emergency Medical Services; Visit Provider Internal Medicine Medical Oncology
DX: C71.6 Malignant neoplasm of cerebellum (principal); E27.8 Other specified disorders of adrenal gland; Z53.9 Procedure and treatment not carried out, unspecified reason
CPT/HCPCS: 80053; 85025; 96360; J7030